=== PATIENT | female | born 1960 | race African-American/Black ===

== ENCOUNTER 2017-10-25 07:28 | Day surgery (SDC) | payer OTHER ==
--- NOTE | 2017-10-21 11:05 | RAD REPORT ---
EXAM DESCRIPTION: RADOP - Outpt Chest Pa/Lat (2 Views) - 10/21/2017 10:59 am CLINICAL HISTORY: Abdominal pain COMPARISON: 10/14/2016 FINDINGS: The lungs are clear. The heart is normal in size. No displaced fractures. IMPRESSION: No acute or concerning finding suspected.
[2017-10-21 11:42] LABS: Absolute Lymphocytes (CBC) 2.1 K/uL (0.7-4.9); Absolute Monocytes 0.5 K/uL (0.1-1.3); Absolute Neutrophil 5.2 K/uL (1.8-8.0); Basophils % 0.7 % (0-1.3); Eosinophils % 2.5 % (0-4.4); Hematocrit 40.4 % (36.0-45.0); Lymphocytes % 25.7 % (15.3-44.8); MCH 29.9 pg (27.0-35.0); MCV 92.5 fL (80-100); MPV 9.3 fL (7.6-11.3); Monocytes % 6.1 % (3.3-12.3); RBC Red Blood Cell Count 4.37 M/uL (3.86-4.86)
[2017-10-21 12:10] LABS: Potassium 3.7 mEq/L (3.6-5.0)
--- NOTE | 2017-10-21 16:41 | EKG ---
Test Date: 2017-10-21 Test Time: 10:50:20 Associate Product Manager: JESSIKA MEASUREMENT RESULTS: Intervals: Rate: 67 SD: 184 QRSD: 90 QT: 412 QTc: 435 Hugo: P: 56 SD: 184 QRS: 5 T: 56 INTERPRETIVE STATEMENTS: Normal sinus rhythm Low voltage QRS Cannot rule out Anterior infarct, age undetermined Abnormal ECG Compared to ECG 10/14/2016 07:31:42 Low QRS voltage now present Myocardial infarct finding now present Sinus bradycardia no longer present Electronically Signed On 10-21-17 16:40:34 CDT by Jem Arndt
--- OUTSIDE RECORDS SUMMARY | 2017-10-25 08:02 | XMS REPORT ---
:1960 Author Organization eClinicalWorks Care Team Providers Name Role Phone White, Na Provider Role Unavailable Allergies, Adverse Reactions, Alerts Substance Reaction Event Type N.K.D.A. Info Not Available Non Drug Allergy Problems Problem Type Condition Code Onset Dates Condition Status Assessment Pure hypercholesterolemia E78.00 Active Assessment Depression F32.9 Active Assessment Umbilical hernia with obstruction K42.0 Active Problem Allergic rhinitis, seasonal J30.2 Active Problem Hyperlipidemia E78.5 Active Problem Pure hypercholesterolemia E78.00 Active Problem HTN (hypertension) I10 Active Assessment HTN (hypertension) I10 Active Problem Vitamin D deficiency E55.9 Active Problem Depression F32.9 Active Medications Medication Code Code Instructions Start End Status Dosage System Date Date Lisinopril [facility] NAMED [facility] 90321510377 20 MG Orally Sep 01, Active 1 tablet Once a day 2017 Flonase FORMER[facility] NAMED [facility] 59595083448 50 MCG/DOSE Active 1 spray in Nasally Once a each nostril day Simvastatin ND 29025490546 20 MG Orally Inactive 1 tablet in Once a day the evening Paxil FORMERLY NAMED [facility] 64409217002 20 MG Orally Active 1 tablet in Once a day the morning Dovonex FORMER[facility] NAMED [facility] [address]-13 0.005 % Active 1 application Externally to affected Twice a day area Diflucan FORMERLY NAMED [facility] 97281639933 150 MG Orally Active 1 tablet Amlodipine FORMERLY NAMED [facility] 99036644044 5 MG Orally Active 1 tablet Besylate Once a day Zestoretic ND 65230979143 20-25 MG Inactive 1 tablet Orally Once a day Pravachol ND 82106396342 40 MG Orally Sep 01, Active 1 tablet Once a day 2017 Vitamin D FORMERLY NAMED [facility] 54076967611 57706 UNIT Inactive 1 capsule (Ergocalcifero Orally l) Results No Known Results Summary Purpose eClinicalWorks Submission
[2017-10-25] MEDS ORDERED: CEFAZOLIN/SWI 1gm 1 GM/10 ML SYR ONE (08:43)
[2017-10-25] MEDS ORDERED: PROPOFOL 200 MG/20 ML VIAL IV ONE (08:50)
[2017-10-25] MEDS ORDERED: LIDOCAINE 2% MPF 5 ML VIAL ONE (08:51)
[2017-10-25] MEDS ORDERED: MIDAZOLAM HCL 2 MG/2 ML INJ ONE (08:51)
[2017-10-25] MEDS ORDERED: ONDANSETRON 4 MG/2 ML VIAL ONE (08:52)
[2017-10-25] MEDS ORDERED: ROCURONIUM 50 MG/5 ML VIAL IV ONE (08:52)
[2017-10-25] MEDS ORDERED: FENTANYL CITR 100 MCG/2 ML ONE (08:53)
[2017-10-25] MEDS ORDERED: Phenylephrine HCl 10 MG/ML 1 ML VIAL ONE (09:34)
[2017-10-25] MEDS ORDERED: DEXAMETHASONE 10 MG/ML VIAL ONE (09:37)
[2017-10-25] MEDS ORDERED: GLYCOPYRROLATE 0.2 MG/ML SYR ONE (09:59)
[2017-10-25] MEDS ORDERED: NEOSTIGMINE 1 MG/ML -5 ML SYRINGE ONE (09:59)
[2017-10-25] MEDS ORDERED: KETOROLAC 30 MG/ML INJ ONE (10:21)
[2017-10-25] MEDS ORDERED: MEPERIDINE HCL 25 MG/0.5 ML ONE (10:51)
--- NOTE | 2017-10-25 11:21 | P.BOP ---
Preoperative diagnosis: incarcerated tender umbilical hernia Postoperative diagnosis: same Primary procedure: Open repair of incarcerated tender umbilical hernia Gis Analyst: Antonette Ernandez) Estimated blood loss: <10cc Specimen: hernia sac and content Findings: incarcerated omentum in umbilical hernia Anesthesia: General Complications: None Transferred to: Recovery Room Condition: Good
[2017-10-25] MEDS ORDERED: HYDROCODONE/APAP 5/325 MG TAB ONE (11:59)
[2017-10-25 12:09] VITALS: BP 141/77; TEMP 97.5; O2SAT 96
--- NOTE | 2017-10-25 23:49 | DS ---
Date of Discharge: 10/25/2017 Diagnosis: Tender incarcerated umbilical hernia. Procedure: Open repair of tender incarcerated umbilical hernia. Disposition: Home. Activity: As tolerated. No heavy lifting. Followup: Follow up in my office in 1 week. Call for appointment at [phone]. Keep area dry for 48 hours, then may shower. Keep Steri-Strips intact. Medications: See order. BRANDON/DERRELL Voice ID: [id number] Report ID: [id number]
--- NOTE | 2017-10-25 23:55 | OP ---
Date of Procedure: 10/25/2017 Surgeon: Rafita Briseno MD Vulnerability Researcher: Anna Mckeon CRNA, FA. Preoperative Diagnosis: Incarcerated tender umbilical hernia. Postoperative Diagnosis: Incarcerated tender umbilical hernia. Procedure: Open repair of incarcerated tender umbilical hernia. Estimated Blood Loss: Less than 10 cc. Specimen: Hernia sac and content. Findings: Incarcerated umbilical hernia. Indications: This is the case of a female, who comes to us with above diagnosis. Fully explained th e benefits, alternatives, and risks of repair of umbilical hernia which include but not limited to in fection, bleeding, damage to adjacent structures, anesthesia complication, DC, even . She also understands this might not relieve any symptoms. She might need more than one surgical intervention. She understood, signed a consent. Description Of Procedure: The patient was brought to the operating room, placed in supine position. Anesthesia was done without complication. The abdominal area was prepped and draped in usual steri le fashion. A time-out was called. A periumbilical incision was made. Incision was carried down to deep subcutaneous tissue, and there is a deep the hernia. Hernia defect was identified, f rom the skin, hernia sac opened, noticed incarcerated omentum, carefully removed from the abdominal c avity after I fully inspected with good hemostasis. The hernia sac was removed. The fascial edges w ere cleaned up and then after that, we proceeded to close the fascia with multiple #1 Prolene in figu re-of-eight fashion. The area was irrigated. Subcu incision closed with 3-0 chromic and skin in sub cuticular fashion with 3-0 chromic and Steri-Strips on top. The patient tolerated the procedure well. The patient was sent to recovery in stable condition. BRANDON/DERRELL Voice ID: [id number] Report ID: [id number]
== END 2017-10-25 12:50 | disposition home or self-care (01) ==
LOC: OR 07:28
PROVIDERS: ATTEND Surgery
PROC: 0WQF0ZZ Repair Abdominal Wall, Open Approach (ICD-10-PCS; principal; 2017-10-25 09:15)
DX: K42.0 Umbilical hernia with obstruction, without gangrene (principal); I10 Essential (primary) hypertension; Z98.51 Tubal ligation status; Z82.49 Family history of ischemic heart disease and other diseases of the circulatory system
CPT/HCPCS: 36415; 71046; 80048; 85025; 88302; 88305; 93005; J0690; J1100; J2175; J2250; J2370; J2405; J2710; J3010

== ENCOUNTER 2018-10-03 08:32 | Emergency (ER) | payer OTHER ==
--- OUTSIDE RECORDS SUMMARY | 2018-10-03 08:34 | XMS REPORT ---
:1960 Author Organization eClinicalWorks Care Team Providers Name Role Phone White, Na Provider Role Unavailable Allergies, Adverse Reactions, Alerts Substance Reaction Event Type N.K.D.A. Info Not Available Non Drug Allergy Problems Problem Type Condition Code Onset Dates Condition Status Assessment Pure hypercholesterolemia E78.00 Active Assessment HTN (hypertension) I10 Active Assessment Depression F32.9 Active Problem Allergic rhinitis, seasonal J30.2 Active Problem Hyperlipidemia E78.5 Active Problem Pure hypercholesterolemia E78.00 Active Problem HTN (hypertension) I10 Active Problem Vitamin D deficiency E55.9 Active Problem Depression F32.9 Active Assessment Screening mammogram, encounter for Z12.31 Active Assessment Acute effusion of left ear H65.192 Active Assessment Seasonal allergic rhinitis, J30.2 Active unspecified trigger Assessment Congestion of paranasal sinus R09.81 Active Medications Medication Code Code Instructions Start End Status Dosage System Date Date Amlodipine [facility] 30801979044 5 MG Orally Active 1 tablet Besylate Once a day Paxil [facility] 13067078180 20 MG Orally Active 1 tablet in Once a day the morning Dovonex [facility] [address]-11 0.005 % Active 1 application Externally to affected Twice a day area Cetirizine ND 73853075934 10 MG Orally Apr 01, Active 1 tablet HCl Once a day 2017 Lisinopril ND 49263847334 20 MG Orally Active 1 tablet Once a day Flonase ND 80047180454 50 MCG/ACT Apr 01, Active 2 spray in Nasally Once a 2018 each nostril day Diflucan ND 50871894094 150 MG Orally Active 1 tablet Paxil [facility] 10383696382 20 MG Active TAKE 1 TABLET BY MOUTH EVERY DAY Flonase ND 83005466381 50 MCG/DOSE Active 1 spray in Nasally Once a each nostril day Pravachol ND 34350995171 40 MG Orally Active 1 tablet Once a day Results No Known Results Summary Purpose eClinicalWorks Submission
--- OUTSIDE RECORDS SUMMARY | 2018-10-03 08:34 | XMS REPORT ---
[...] [facility] 21392916543 20 MG Orally Sep 01, Active 1 tablet Once a day 2017 Flonase [facility]MER[facility] NAMED [facility] 45515381671 50 MCG/DOSE Active 1 spray in Nasally Once a each nostril day Simvastatin ND 91963655101 20 MG Orally Inactive 1 tablet in Once a day the evening Paxil FORMER[facility] NAMED [facility] 12740625512 20 MG Orally Active 1 tablet in Once a day the morning Dovonex [facility]MER[facility] NAMED [facility] [address]-46 0.005 % Active 1 application Externally to affected Twice a day area Diflucan [facility]MER[facility] NAMED [facility] 01513349654 150 MG Orally Active 1 tablet Amlodipine FORMER[facility] NAMED [facility] 56695487294 5 MG Orally Active 1 tablet Besylate Once a day Zestoretic ND 90674799409 20-25 MG Inactive 1 tablet Orally Once a day Pravachol ND 17110632625 40 MG Orally Sep 01, Active 1 tablet Once a day 2017 Vitamin D FORMER[facility] NAMED [facility] 77536742152 48297 UNIT Inactive 1 capsule (Ergocalcifero Orally l) Results No Known Results Summary Purpose eClinicalWorks Submission
--- OUTSIDE RECORDS SUMMARY | 2018-10-03 08:34 | XMS REPORT ---
:1960 Author Organization eClinicalWorks Care Team Providers Name Role Phone White, Na Provider Role Unavailable Allergies No Known Allergies Problems Problem Type Condition Code Onset Dates Condition Status Assessment Depression F32.9 Active Assessment HTN (hypertension) I10 Active Problem Allergic rhinitis, seasonal J30.2 Active Problem Hyperlipidemia E78.5 Active Problem Pure hypercholesterolemia E78.00 Active Problem HTN (hypertension) I10 Active Problem Vitamin D deficiency E55.9 Active Problem Depression F32.9 Active Medications Medication Code Code Instructions Start End Status Dosage System Date Date Paxil [facility] [place] 54168885155 20 MG Orally Active 1 tablet Once a day in the morning Amlodipine [facility] [place] 34257971517 5 MG Orally Once Active 1 tablet Besylate a day Results No Known Results Summary Purpose eClinicalWorks Submission
--- OUTSIDE RECORDS SUMMARY | 2018-10-03 08:35 | XMS REPORT ---
:1960 Author Organization eClinicalWorks Care Team Providers Name Role Phone White, Na Provider Role Unavailable Allergies, Adverse Reactions, Alerts Substance Reaction Event Type N.K.D.A. Info Not Available Non Drug Allergy Problems Problem Type Condition Code Onset Dates Condition Status Assessment Depression F32.9 Active Assessment HTN (hypertension) I10 Active Assessment Pure hypercholesterolemia E78.00 Active Assessment Muscle cramps R25.2 Active Assessment Seasonal allergic rhinitis, J30.2 Active unspecified trigger Assessment Microalbuminuria R80.9 Active Assessment Renal insufficiency N28.9 Active Problem Allergic rhinitis, seasonal J30.2 Active Problem Hyperlipidemia E78.5 Active Problem Pure hypercholesterolemia E78.00 Active Problem HTN (hypertension) I10 Active Problem Vitamin D deficiency E55.9 Active Problem Depression F32.9 Active Medications Medication Code Code Instructions Start End Status Dosage System Date Date Flonase [facility] 65246356138 50 MCG/DOSE Active 1 spray in Nasally Once a each day nostril Pravachol [facility] 91534489055 40 MG Orally Inactive 1 tablet Once a day Paxil [facility] 15836203941 20 MG Orally Active 1 tablet Once a day in the morning Flonase [facility] 84024922599 50 MCG/ACT Active 2 spray in Nasally Once a each day nostril Crestor ND 66758777895 10 MG Aug 15, Active take 1 2019 tablet by mouth at bedtime Amlodipine [facility] 50087808373 5 MG Orally Active 1 tablet Besylate Once a day Lisinopril [facility] 23062561945 20 MG Orally Active 1 tablet Once a day Amlodipine ND 87220644056 10 MG Orally Active 1 tablet Besylate Once a day Cetirizine HCl ND 66373251341 10 MG Orally Active 1 tablet Once a day Paxil [facility] 94120660897 20 MG Active TAKE 1 TABLET BY MOUTH EVERY DAY Results No Known Results Summary Purpose eClinicalWorks Submission
--- OUTSIDE RECORDS SUMMARY | 2018-10-03 08:35 | XMS REPORT ---
:1960 Author Organization eClinicalWorks Care Team Providers Name Role Phone White, Na Provider Role Unavailable Allergies No Known Allergies Problems Problem Type Condition Code Onset Dates Condition Status Assessment HTN (hypertension) I10 Active Problem Allergic rhinitis, seasonal J30.2 Active Problem Hyperlipidemia E78.5 Active Problem Pure hypercholesterolemia E78.00 Active Problem HTN (hypertension) I10 Active Problem Vitamin D deficiency E55.9 Active Problem Depression F32.9 Active Medications Medication Code Code Instructions Start End Date Status Dosage System Date Amlodipine [facility] 53050021949 10 MG Orally Active 1 tablet Besylate Once a day Results No Known Results Summary Purpose eClinicalWorks Submission
--- NOTE | 2018-10-03 09:31 | EDPHYS ---
Physician Documentation [facility] Name: Ricky Nash Age: 58 yrs Sex: Female : 1960 Arrival Date: 10/03/2018 Time: 08:34 Bed 12 Private MD: Angeline White ED Physician Dada Contreras HPI: 10/03 09:27 This 58 yrs old Black Female presents to ER via Ambulatory with complaints of Sore jr8 Throat, Ear Pain. 09:27 The patient presents with sore throat. The patient describes throat pain as scratchy. jr8 Onset: The symptoms/episode began/occurred gradually, 1 week(s) ago. Severity of symptoms: At their worst the symptoms were mild, in the emergency department the symptoms are unchanged. Modifying factors: The symptoms are alleviated by nothing, the symptoms are aggravated by nothing. Associated signs and symptoms: Pertinent positives: cough, earache, rhinorrhea, sneezing. The patient has not experienced similar symptoms in the past. The patient has not recently seen a physician. Historical: - Allergies: 08:59 NKA; sg - PMHx: 08:59 Depression; Hyperlipidemia; Hypertension; sg - PSHx: 08:59 Hysterectomy; sinus surgery; left pinky toe; Tubal ligation; trigger finger repaired; sg - Immunization history:: Adult Immunizations up to date. - Social history:: Smoking status: Patient/guardian denies using tobacco. - Ebola Screening: : Patient negative for fever greater than or equal to 101.5 degrees Fahrenheit, and additional compatible Ebola Virus Disease symptoms Patient denies exposure to infectious person Patient denies travel to an Ebola-affected area in the 21 days before illness onset No symptoms or risks identified at this time. ROS: 09:27 Eyes: Negative for injury, pain, redness, and discharge, Neck: Negative for injury, jr8 pain, and swelling, Cardiovascular: Negative for chest pain, palpitations, and edema, Abdomen/GI: Negative for abdominal pain, nausea, vomiting, diarrhea, and constipation, Back: Negative for injury and pain, MS/Extremity: Negative for injury and deformity, Skin: Negative for injury, rash, and discoloration, Neuro: Negative for headache, weakness, numbness, tingling, and seizure. 09:27 ENT: Positive for ear pain, rhinorrhea, sinus congestion, sore throat, Negative for drainage from ear(s). 09:27 Respiratory: Positive for cough, Negative for dyspnea on exertion, shortness of breath, sputum production, wheezing. Exam: 09:27 Eyes: Pupils equal round and reactive to light, extra-ocular motions intact. Lids and jr8 lashes normal. Conjunctiva and sclera are non-icteric and not injected. Cornea within normal limits. Periorbital areas with no swelling, redness, or edema. ENT: Nares patent. No nasal discharge, no septal abnormalities noted. Mild bogginess to turbinates. Tympanic membranes are normal and external auditory canals are clear. Serous fluid behind TM's present. Oropharynx with no redness, swelling, or masses, exudates, or evidence of obstruction, uvula midline. Mucous membranes moist. Neck: Trachea midline, no thyromegaly or masses palpated, and no cervical lymphadenopathy. Supple, full range of motion without nuchal rigidity, or vertebral point tenderness. No Meningismus. Cardiovascular: Regular rate and rhythm with a normal S1 and S2. No gallops, murmurs, or rubs. Normal PMI, no JVD. No pulse deficits. Respiratory: Lungs have equal breath sounds bilaterally, clear to auscultation and percussion. No rales, rhonchi or wheezes noted. No increased work of breathing, no retractions or nasal flaring. Abdomen/GI: Soft, non-tender, with normal bowel sounds. No distension or tympany. No guarding or rebound. No evidence of tenderness throughout. Back: No spinal tenderness. No costovertebral tenderness. Full range of motion. Skin: Warm, dry with normal turgor. Normal color with no rashes, no lesions, and no evidence of cellulitis. MS/ Extremity: Pulses equal, no cyanosis. Neurovascular intact. Full, normal range of motion. Neuro: Awake and alert, GCS 15, oriented to person, place, time, and situation. Cranial nerves II-XII grossly intact. Motor strength 5/5 in all extremities. Sensory grossly intact. Cerebellar exam normal. Normal gait. Vital Signs: 08:58 BP 144 / 84; Pulse 77; Resp 19; Temp 97.4; Pulse Ox 97% on R/A; Pain 6/10; sg MDM: 08:51 Patient medically screened. 8 09:27 Data reviewed: vital signs, nurses notes, and as a result, I will discharge patient. jr8 Data interpreted: Pulse oximetry: on room air is 97 %. Interpretation: normal. Counseling: I had a detailed discussion with the patient and/or guardian regarding: the historical points, exam findings, and any diagnostic results supporting the discharge/admit diagnosis, the need for outpatient follow up, a family practitioner, to return to the emergency department if symptoms worsen or persist or if there are any questions or concerns that arise at home. Administered Medications: No medications were administered Disposition: 13:48 Co-signature as Attending Physician, Dada Contreras MD I agree with the assessment and zoraida plan of care. Disposition: 10/03/18 09:30 Discharged to Home. Impression: Other seasonal allergic rhinitis, Acute nasopharyngitis [common cold]. - Condition is Stable. - Discharge Instructions: Nasal Allergies, Allergic Rhinitis, Viral Respiratory Infection. - Prescriptions for Claritin- D 12 Hour 5-120 mg Oral Tablet Sustained Release 12 hr - take 1 tablet by ORAL route every 12 hours for 7 days; 14 tablet. Prednisone 20 mg Oral Tablet - take 1 tablet by ORAL route once daily for 5 days; 5 tablet. Tessalon Perles 100 mg Oral Capsule - take 1 capsule by ORAL route every 8 hours As needed; 15 capsule. - Work release form, Medication Reconciliation Form, Thank You Letter, Antibiotic Education, Prescription Opioid Use form. - Follow up: Private Physician; When: 1 week; Reason: Recheck today's complaints, Continuance of care, Re-evaluation by your physician. - Problem is new. - Symptoms have improved. Signatures: Miguel Bernal RN RN sg Anderson, Corey, MD MD cha Williams, Irene, RN RN iw Roszak, Josh, PA PA jr8 Corrections: (The following items were deleted from the chart) 09:30 09:30 10/03/2018 09:30 Discharged to Home. Impression: Other seasonal allergic jr8 rhinitis. Condition is Stable. Forms are Medication Reconciliation Form, Thank You Letter, Antibiotic Education, Prescription Opioid Use. Follow up: Private Physician; When: 1 week; Reason: Recheck today's complaints, Continuance of care, Re-evaluation by your physician. Problem is new. Symptoms have improved. jr8 09:39 09:30 10/03/2018 09:30 Discharged to Home. Impression: Other seasonal allergic iw rhinitis; Acute nasopharyngitis [common cold]. Condition is Stable. Forms are Medication Reconciliation Form, Thank You Letter, Antibiotic Education, Prescription Opioid Use. Follow up: Private Physician; When: 1 week; Reason: Recheck today's complaints, Continuance of care, Re-evaluation by your physician. Problem is new. Symptoms have improved. jr8
--- NOTE | 2018-10-03 09:31 | ER ---
Nurse's Notes [facility] Name: Ricky Nash Age: 58 yrs Sex: Female : 1960 Arrival Date: 10/03/2018 Time: 08:34 Bed 12 Private MD: Angeline White Diagnosis: Other seasonal allergic rhinitis;Acute nasopharyngitis [common cold] Presentation: 10/03 08:57 Presenting complaint: Patient states: Left ear pain for 2-3 days, with sore throat that sg started out as itching last week and has just gotten worse, pt reports sinus congestion and drainage as well, denies N/V/D/Fever that she knows of at this time. Transition of care: patient was not received from another setting of care. Onset of symptoms was October 03, 2018. Risk Assessment: Do you want to hurt yourself or someone else? Patient reports no desire to harm self or others. Initial Sepsis Screen: Does the patient meet any 2 criteria? No. Patient's initial sepsis screen is negative. Does the patient have a suspected source of infection? No. Patient's initial sepsis screen is negative. Care prior to arrival: None. 08:57 Acuity: MANOJ 4 sg 08:57 Method Of Arrival: Ambulatory sg Historical: - Allergies: 08:59 NKA; sg - PMHx: 08:59 Depression; Hyperlipidemia; Hypertension; sg - PSHx: 08:59 Hysterectomy; sinus surgery; left pinky toe; Tubal ligation; trigger finger repaired; sg - Immunization history:: Adult Immunizations up to date. - Social history:: Smoking status: Patient/guardian denies using tobacco. - Ebola Screening: : Patient negative for fever greater than or equal to 101.5 degrees Fahrenheit, and additional compatible Ebola Virus Disease symptoms Patient denies exposure to infectious person Patient denies travel to an Ebola-affected area in the 21 days before illness onset No symptoms or risks identified at this time. Screenin:38 Abuse screen: Denies threats or abuse. Denies injuries from another. Nutritional iw screening: No deficits noted. Tuberculosis screening: No symptoms or risk factors identified. Fall Risk None identified. Assessment: 09:37 General: Appears in no apparent distress. Behavior is calm, cooperative. Pain: iw Complains of pain in head. Neuro: Level of Consciousness is awake, alert, obeys commands. Respiratory: Airway is patent Respiratory effort is even, unlabored, Breath sounds are clear bilaterally. GI: Abdomen is flat, non-distended. EENT: Throat is clear. Derm: Skin is intact, is healthy with good turgor. Musculoskeletal: Range of motion: intact in all extremities. Vital Signs: 08:58 BP 144 / 84; Pulse 77; Resp 19; Temp 97.4; Pulse Ox 97% on R/A; Pain 6/10; sg ED Course: 08:34 Patient arrived in ED. as 08:35 Angeline White MD is Private Physician. as 08:50 Yolis Clay, RN is Primary Nurse. iw 08:51 [facility] jr8 08:51 Dada Contreras MD is Attending Physician. jr8 08:58 Triage completed. sg 08:58 Arm band placed on. sg 09:38 No provider procedures requiring assistance completed. Patient did not have IV access iw during this emergency room visit. 09:39 Patient has correct armband on for positive identification. iw Administered Medications: No medications were administered Outcome: 09:30 Discharge ordered by . jr8 09:38 Discharged to home ambulatory. iw 09:38 Condition: good 09:38 Discharge instructions given to patient, Instructed on discharge instructions, follow up and referral plans. medication usage, Demonstrated understanding of instructions, follow-up care, medications, Prescriptions given X 3. 09:39 Patient left the ED. iw Signatures: Miguel Bernal, RN CIERRA sg Mariana Briseno as Yolis Clay, [facility] [place] iw Eleno Naidu PA PA jr8
[2018-10-03 09:43] VITALS: BP 144/84; TEMP 97.4; O2SAT 97
== END 2018-10-03 09:39 | disposition home or self-care (01) ==
LOC: ER 08:32
DX: J00 Acute nasopharyngitis [common cold] (principal); J30.2 Other seasonal allergic rhinitis; I10 Essential (primary) hypertension
CPT/HCPCS: 99282

== ENCOUNTER 2018-12-24 06:11 | Emergency (ER) | payer OTHER ==
--- OUTSIDE RECORDS SUMMARY | 2018-12-24 06:13 | XMS REPORT ---
[...] [facility] 94871068311 20 MG Orally Sep 01, Active 1 tablet Once a day 2017 Flonase FORMERLY NAMED [facility] 46468568960 50 MCG/DOSE Active 1 spray in Nasally Once a each nostril day Simvastatin ND 17758790791 20 MG Orally Inactive 1 tablet in Once a day the evening Paxil FORMERLY NAMED [facility] 08966113488 20 MG Orally Active 1 tablet in Once a day the morning Dovonex FORMERLY NAMED [facility] [address]-45 0.005 % Active 1 application Externally to affected Twice a day area Diflucan FORMERLY NAMED [facility] 77400622533 150 MG Orally Active 1 tablet Amlodipine FORMERLY NAMED [facility] 61391744674 5 MG Orally Active 1 tablet Besylate Once a day Zestoretic ND 65174200189 20-25 MG Inactive 1 tablet Orally Once a day Pravachol ND 52411144940 40 MG Orally Sep 01, Active 1 tablet Once a day 2017 Vitamin D FORMERLY NAMED [facility] 90790388003 29570 UNIT Inactive 1 capsule (Ergocalcifero Orally l) Results No Known Results Summary Purpose eClinicalWorks Submission
--- OUTSIDE RECORDS SUMMARY | 2018-12-24 06:13 | XMS REPORT ---
[...] End Date Status Dosage System Date Amlodipine [facility] 46305233671 10 MG Orally Active 1 tablet Besylate Once a day Results No Known Results Summary Purpose eClinicalWorks Submission
--- OUTSIDE RECORDS SUMMARY | 2018-12-24 06:13 | XMS REPORT ---
[...] End Status Dosage System Date Date Flonase [facility] 38002420672 50 MCG/DOSE Active 1 spray in Nasally Once a each day nostril Pravachol [facility] 36985943338 40 MG Orally Inactive 1 tablet Once a day Paxil [facility] 71905839157 20 MG Orally Active 1 tablet Once a day in the morning Flonase [facility] 20574908758 50 MCG/ACT Active 2 spray in Nasally Once a each day nostril Crestor ND 52664691827 10 MG Aug 15, Active take 1 2019 tablet by mouth at bedtime Amlodipine [facility] 42253021223 5 MG Orally Active 1 tablet Besylate Once a day Lisinopril [facility] 94451283714 20 MG Orally Active 1 tablet Once a day Amlodipine ND 33247939865 10 MG Orally Active 1 tablet Besylate Once a day Cetirizine HCl ND 92042432299 10 MG Orally Active 1 tablet Once a day Paxil [facility] 11806416784 20 MG Active TAKE 1 TABLET BY MOUTH EVERY DAY Results No Known Results Summary Purpose eClinicalWorks Submission
--- OUTSIDE RECORDS SUMMARY | 2018-12-24 06:13 | XMS REPORT ---
[...] End Status Dosage System Date Date Amlodipine [facility] 48375677393 5 MG Orally Active 1 tablet Besylate Once a day Paxil [facility] 68603239938 20 MG Orally Active 1 tablet in Once a day the morning Dovonex [facility] [address]-55 0.005 % Active 1 application Externally to affected Twice a day area Cetirizine ND 89804323382 10 MG Orally Apr 01, Active 1 tablet HCl Once a day 2017 Lisinopril ND 09367257419 20 MG Orally Active 1 tablet Once a day Flonase ND 54196499255 50 MCG/ACT Apr 01, Active 2 spray in Nasally Once a 2018 each nostril day Diflucan ND 05539326259 150 MG Orally Active 1 tablet Paxil [facility] 21748808024 20 MG Active TAKE 1 TABLET BY MOUTH EVERY DAY Flonase ND 92187590000 50 MCG/DOSE Active 1 spray in Nasally Once a each nostril day Pravachol ND 29101719688 40 MG Orally Active 1 tablet Once a day Results No Known Results Summary Purpose eClinicalWorks Submission
--- OUTSIDE RECORDS SUMMARY | 2018-12-24 06:13 | XMS REPORT ---
[...] End Status Dosage System Date Date Paxil [facility] 76477771057 20 MG Orally Active 1 tablet Once a day in the morning Amlodipine [facility] 48677807223 5 MG Orally Once Active 1 tablet Besylate a day Results No Known Results Summary Purpose eClinicalWorks Submission
[2018-12-24] MEDS ORDERED: KETOROLAC 30 MG/ML INJ ONE (06:55)
--- NOTE | 2018-12-24 08:09 | EDPHYS ---
Physician Documentation [facility] Name: Ricky Nash Age: 58 yrs Sex: Female : 1960 Arrival Date: 12/24/2018 Time: 06:15 Bed 6 Private MD: ED Physician Federico Mackenzie HPI: 12/24 06:28 This 58 yrs old Black Female presents to ER via Ambulatory with complaints of Headache. kb 06:28 The patient complains of pain to the forehead. The patient describes the headache as kb intermittent. Onset: The symptoms/episode began/occurred 8 day(s) ago. Associated signs and symptoms: The patient has no apparent associated signs or symptoms. Severity of symptoms: At its worst the pain was moderate, in the emergency department the pain is unchanged. Headache History: Denies prior headaches. The symptoms are alleviated by nothing. the symptoms are aggravated by bending over. The patient has not experienced similar symptoms in the past. The patient has been recently seen by a physician: the patient's primary care provider, 5 day(s) ago. Pt reports she started having a headache 8 days ago (Wednesday). Went to Dr White on Wednesday and was given prescription for Augmentin and meclizine. Pt denies cough, congestion, sinus pressure, fever, chills, dizziness or any other symptoms. Only reports headache. States she took a tylenol last night for the pain. . Historical: - Allergies: 06:30 NKA; fc - Home Meds: 06:30 lisinopril 20 mg Oral tab 1 tab once daily [Active]; Paxil 20 mg Oral tab 1 tab once fc daily [Active]; amlodipine 10 mg tab 1 tab once daily [Active]; - PMHx: 06:30 Depression; Hyperlipidemia; Hypertension; fc - PSHx: 06:30 Hysterectomy; Tubal ligation; finger surg; toe surg; sinus surg; fc - Immunization history:: Last tetanus immunization: up to date. - Social history:: Smoking status: Patient/guardian denies using tobacco, Patient uses alcohol, occasionally. - Ebola Screening: : Patient negative for fever greater than or equal to 101.5 degrees Fahrenheit, and additional compatible Ebola Virus Disease symptoms Patient denies exposure to infectious person Patient denies travel to an Ebola-affected area in the 21 days before illness onset. ROS: 06:28 Constitutional: Negative for fever, chills, and weight loss, Eyes: Negative for injury, kb pain, redness, and discharge, ENT: Negative for injury, pain, and discharge, Neck: Negative for injury, pain, and swelling, Cardiovascular: Negative for chest pain, palpitations, and edema, Respiratory: Negative for shortness of breath, cough, wheezing, and pleuritic chest pain, Abdomen/GI: Negative for abdominal pain, nausea, vomiting, diarrhea, and constipation, Back: Negative for injury and pain, MS/Extremity: Negative for injury and deformity, Skin: Negative for injury, rash, and discoloration. 06:28 Neuro: Positive for headache, Negative for altered mental status, dizziness, gait disturbance, hearing loss, loss of consciousness, numbness, seizure activity, speech changes, syncope, near syncope, tingling, tinnitus, tremor, visual changes, weakness. Exam: 06:28 Constitutional: This is a well developed, well nourished patient who is awake, alert, kb and in no acute distress. Head/Face: Normocephalic, atraumatic. Eyes: Pupils equal round and reactive to light, extra-ocular motions intact. Lids and lashes normal. Conjunctiva and sclera are non-icteric and not injected. Cornea within normal limits. Periorbital areas with no swelling, redness, or edema. ENT: Nares patent. No nasal discharge, no septal abnormalities noted. Tympanic membranes are normal and external auditory canals are clear. Oropharynx with no redness, swelling, or masses, exudates, or evidence of obstruction, uvula midline. Mucous membranes moist. Neck: Trachea midline, no thyromegaly or masses palpated, and no cervical lymphadenopathy. Supple, full range of motion without nuchal rigidity, or vertebral point tenderness. No Meningismus. Chest/axilla: Normal chest wall appearance and motion. Nontender with no deformity. No lesions are appreciated. Cardiovascular: Regular rate and rhythm with a normal S1 and S2. No gallops, murmurs, or rubs. Normal PMI, no JVD. No pulse deficits. Respiratory: Lungs have equal breath sounds bilaterally, clear to auscultation and percussion. No rales, rhonchi or wheezes noted. No increased work of breathing, no retractions or nasal flaring. Abdomen/GI: Soft, non-tender, with normal bowel sounds. No distension or tympany. No guarding or rebound. No evidence of tenderness throughout. Skin: Warm, dry with normal turgor. Normal color with no rashes, no lesions, and no evidence of cellulitis. MS/ Extremity: Pulses equal, no cyanosis. Neurovascular intact. Full, normal range of motion. Neuro: Awake and alert, GCS 15, oriented to person, place, time, and situation. Cranial nerves II-XII grossly intact. Motor strength 5/5 in all extremities. Sensory grossly intact. Cerebellar exam normal. Normal gait. Vital Signs: 06:15 BP 138 / 93; Pulse 70; Resp 18; Temp 98.6(O); Pulse Ox 98% on R/A; Weight 111.58 kg fc (R); Height 5 ft. 8 in. (172.72 cm) (R); Pain 6/10; 07:45 BP 121 / 79; Pulse 68; Resp 16; Pulse Ox 96% on R/A; Pain 5/10; hb 06:15 Body Mass Index 37.40 (111.58 kg, 172.72 cm) [place] Coma Score: 06:28 Eye Response: spontaneous(4). Verbal Response: oriented(5). Motor Response: obeys kb commands(6). Total: 15. MDM: 06:25 Patient medically screened. kb 06:28 Data reviewed: vital signs, nurses notes. Data interpreted: Pulse oximetry: on room air kb is 100 %. Interpretation: normal. 06:53 ED course: Patient looking at phone when ambulating to room from lobby. Steady gait, no kb distress noted.. 08:08 Counseling: I had a detailed discussion with the patient and/or guardian regarding: the kb historical points, exam findings, and any diagnostic results supporting the discharge/admit diagnosis, radiology results, the need for outpatient follow up, a family practitioner, to return to the emergency department if symptoms worsen or persist or if there are any questions or concerns that arise at home. 08:08 ED course: Pt reports relief of pain after toradol injection. kb 12/24 06:26 Order name: CT Head Brain wo Cont kb Administered Medications: 06:47 Drug: TORadol 60 mg Route: IM; Site: right deltoid; lp1 07:35 Follow up: Response: No adverse reaction; Pain is decreased hb Disposition: 12/24/18 08:08 Discharged to Home. Impression: Headache. - Condition is Stable. - Discharge Instructions: General Headache Without Cause, [id number]. - Medication Reconciliation Form, Thank You Letter, Antibiotic Education, Prescription Opioid Use form. - Follow up: Emergency Department; When: As needed; Reason: Worsening of condition. Follow up: Private Physician; When: 2 - 3 days; Reason: Recheck today's complaints, Continuance of care, Re-evaluation by your physician. Addendum: 12/27/2018 16:41 Co-signature as Attending Physician, Federico Mackenzie MD I agree with the assessment and t w4 plan of care. Signatures: Dispatcher [employer] EDBrittni Murray, BALDOMERO-Wayne HORSER UP-Rashmi Jarvis, RN RN Devi Wright RN RN lp1 Pricilla Mora RN RN Federico Mackenzie MD MD tw4 Corrections: (The following items were deleted from the chart) 12/24 08:23 08:08 12/24/2018 08:08 Discharged to Home. Impression: Headache. Condition is Stable. hb Forms are Medication Reconciliation Form, Thank You Letter, Antibiotic Education, Prescription Opioid Use. Follow up: Emergency Department; When: As needed; Reason: Worsening of condition. Follow up: Private Physician; When: 2 - 3 days; Reason: Recheck today's complaints, Continuance of care, Re-evaluation by your physician. kb
--- NOTE | 2018-12-24 08:09 | ER ---
Nurse's Notes [facility] Name: Ricky Nash Age: 58 yrs Sex: Female : 1960 Arrival Date: 12/24/2018 Time: 06:15 Bed 6 Private MD: Diagnosis: Headache Presentation: 12/24 06:15 Presenting complaint: Patient states: that 8 days ago she started to have a headache fc and left ear pain. Went to see Dr White 5 days ago and was given Augmentin and Meclizine. Has had no improvement. Transition of care: patient was not received from another setting of care. Onset of symptoms was December 17, 2018. Risk Assessment: Do you want to hurt yourself or someone else? Patient reports no desire to harm self or others. Initial Sepsis Screen: Does the patient meet any 2 criteria? No. Patient's initial sepsis screen is negative. Does the patient have a suspected source of infection? No. Patient's initial sepsis screen is negative. Care prior to arrival: Medication(s) given: Tylenol, last at 0200. 06:15 Method Of Arrival: Ambulatory 06:15 Acuity: MANOJ 3 Triage Assessment: 06:15 Headache History: Denies prior headaches. 06:15 General: Appears uncomfortable, obese, Behavior is calm, cooperative, appropriate for age. Pain: Complains of pain in forehead, left ear and left mu-ism Pain currently is 6 out of 10 on a pain scale. Quality of pain is described as aching, pressure, throbbing, Pain began 8 days ago Is continuous, Also complains of sleeplessness. EENT: Reports pain in left ear. Neuro: Level of Consciousness is awake, alert, obeys commands, Oriented to person, place, time, situation, Appropriate for age [employer] Talk Show [employer] are equal bilaterally Moves all extremities. Full function Gait is steady, Speech is normal, Reports headache in left. Cardiovascular: No deficits noted. Respiratory: Reports. GI: No deficits noted. : No deficits noted. Derm: Skin is intact, Skin is dry, Skin is normal, Skin temperature is warm. Musculoskeletal: Circulation, motion, and sensation intact. Capillary refill < 3 seconds, Range of motion: intact in all extremities. Historical: - Allergies: 06:30 NKA; fc - Home Meds: 06:30 lisinopril 20 mg Oral tab 1 tab once daily [Active]; Paxil 20 mg Oral tab 1 tab once fc daily [Active]; amlodipine 10 mg tab 1 tab once daily [Active]; - PMHx: 06:30 Depression; Hyperlipidemia; Hypertension; fc - PSHx: 06:30 Hysterectomy; Tubal ligation; finger surg; toe surg; sinus surg; fc - Immunization history:: Last tetanus immunization: up to date. - Social history:: Smoking status: Patient/guardian denies using tobacco, Patient uses alcohol, occasionally. - Ebola Screening: : Patient negative for fever greater than or equal to 101.5 degrees Fahrenheit, and additional compatible Ebola Virus Disease symptoms Patient denies exposure to infectious person Patient denies travel to an Ebola-affected area in the 21 days before illness onset. Screenin:28 Abuse screen: Denies threats or abuse. Nutritional screening: No deficits noted. fc Tuberculosis screening: No symptoms or risk factors identified. Fall Risk None identified. Assessment: 06:48 General: Appears in no apparent distress. Behavior is appropriate for age. Pain: lp1 Complains of pain in head. Neuro: Level of Consciousness is awake, alert, obeys commands, Oriented to person, place, time, situation, Gait is steady, Speech is normal, Pupils are PERRLA, Intact Reports dizziness, headache photophobia x 1 week. Cardiovascular: Patient's skin is warm and dry. Cardiovascular:. Respiratory: No deficits noted. GI: No deficits noted. : No signs and/or symptoms were reported regarding the genitourinary system. EENT: No signs and/or symptoms were reported regarding the EENT system. Derm: Skin is intact, Skin is dry, Skin is normal. Musculoskeletal: No deficits noted. 07:45 Reassessment: Patient appears in no apparent distress at this time. Patient and/or hb family updated on plan of care and expected duration. Pain level reassessed. Patient is alert, oriented x 3, equal unlabored respirations, skin warm/dry/pink. Vital Signs: 06:15 BP 138 / 93; Pulse 70; Resp 18; Temp 98.6(O); Pulse Ox 98% on R/A; Weight 111.58 kg fc (R); Height 5 ft. 8 in. (172.72 cm) (R); Pain 6/10; 07:45 BP 121 / 79; Pulse 68; Resp 16; Pulse Ox 96% on R/A; Pain 5/10; hb 06:15 Body Mass Index 37.40 (111.58 kg, 172.72 cm) fc [place] Coma Score: 06:28 Eye Response: spontaneous(4). Verbal Response: oriented(5). Motor Response: obeys kb commands(6). Total: 15. ED Course: 06:15 Patient arrived in ED. ag3 06:15 Arm band placed on Patient placed in an exam room, on a stretcher. fc 06:25 Brittni Bucio FNP-C [facility]. kb 06:25 Federico Mackenzie MD is Attending Physician. kb 06:28 Triage completed. fc 06:28 Patient has correct armband on for positive identification. Bed in low position. Call fc light in reach. Pulse ox on. NIBP on. 06:42 Devi Wright, RN is Primary Nurse. lp1 06:48 CT Head Brain wo Cont In Process Unspecified. EDMS 07:51 Primary Nurse role handed off by Devi Wright RN 07:51 Pricilla Mora, RN is Primary Nurse. hb 08:21 No provider procedures requiring assistance completed. Patient did not have IV access hb during this emergency room visit. Administered Medications: 06:47 Drug: TORadol 60 mg Route: IM; Site: right deltoid; lp1 07:35 Follow up: Response: No adverse reaction; Pain is decreased hb Outcome: 08:08 Discharge ordered by MD. kb 08:22 Discharged to home ambulatory. hb 08:22 Condition: stable 08:22 Discharge instructions given to patient, Instructed on discharge instructions, follow up and referral plans. medication usage, Demonstrated understanding of instructions, follow-up care, medications. 08:23 Patient left the ED. hb Signatures: Dispatcher [employer] EDLA Brittni Bucio FNP-C FNP-Ckb Chretien, Felicia, RN RN Devi Wright, CIERRA RN [facility] Pricilla Mora RN RN Love Coley ag3
[2018-12-24 08:33] VITALS: TEMP 98.6
[2018-12-24 08:36] VITALS: BP 121/79; O2SAT 96
--- NOTE | 2018-12-26 11:07 | RAD REPORT ---
EXAM DESCRIPTION: CT - Head Brain Wo Cont - 12/24/2018 7:46 am CLINICAL HISTORY: HEADACHE COMPARISON None. TECHNIQUE: CT HEAD WITHOUT IV CONTRAST on 12/24/2018 6:26 AM CDT This exam was performed according to our departmental dose-optimization program, which includes autom ated exposure control, adjustment of the mA and/or kV according to patient size and/or use of iterati ve reconstruction technique. FINDINGS: There is no acute hemorrhage, mass effect or midline shift. Flores-white differentiation is preserved. There is no hydrocephalus. There is no significant volume loss for age. The calvarium is intact. Orbits and globes are unremarkable. The paranasal sinuses are clear. Mastoid air cells are clear. IMPRESSION: No acute intracranial findings. Electronically signed by: Trevor Boggs MD 12/24/2018 7:01 AM CDT Due to temporary technical issues with the PACS/Fluency reporting system, reports are being signed by the in house radiologist as a courtesy to ensure prompt reporting. The interpreting radiologist is f ully responsible for the content of the report.
== END 2018-12-24 08:23 | disposition home or self-care (01) ==
LOC: ER 06:11
DX: R51 Headache (principal); I10 Essential (primary) hypertension; E78.5 Hyperlipidemia, unspecified; F32.9 Major depressive disorder, single episode, unspecified
CPT/HCPCS: 70450; 96372; 99283

== ENCOUNTER 2020-05-09 15:18 | Emergency (ER) | payer OTHER ==
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
[2020-05-09 16:15] VITALS: BP 146/94; TEMP 97.1; O2SAT 97
--- OUTSIDE RECORDS SUMMARY | 2020-05-09 17:02 | XMS REPORT | Continuity of Care Document ---
:1960 Author Organization [facility] t Address [address] [place] [address] Care Team Providers Name Role Phone Unavailable Unavailable Unavailable Problems Condition Condition Condition Status Onset Resolution Last Treating Co mments Source Name Details Category Date Date Treatment Clinician Date Pure Pure Problem Active [facility] hyperchole hyperchole Micheline kes - sterolemia sterolemia Me moria l [facility] ent [facility] Depression Depression Problem Active C [facility] ent Clinics Allergic Allergic Problem Active [facility] rhinitis, [facility]initis, [facility] - seasonal seasonal Memori a l [facility] ent Clinics Hyperlipid Hyperlipid Problem Active C [facility] emia emia kes - Memoria [facility] Clinics HTN HTN Problem Active [facility] (hypertens (hypertens Micheline kes - ion) ion) [facility] Vitamin D Vitamin D Problem Active [facility] deficiency deficiency Micheline kes - [facility] Adult Adult Problem Active [facility] general general [facility] medical [facility] exam exam l [facility] History of History of Problem Active C [facility] colon colon [facility] - polyps polyps [facility] Allergies, Adverse Reactions, Alerts This patient has no known allergies or adverse reactions. Medications Ordered Filled Start Stop Current Ordering Indication Dosage Frequency Signature Comments Components Source Medication Medication Date Date Medication? Clinician (SIG) Name Name Paxil Paxil Yes Na White [address] [facility] - morning [facility] Procedures This patient has no known procedures. Encounters Start End Encounter Admission Attending Care Care Encounter Source Date/Time Date/Time Type Type Clinicians Facility Department ID 2020-04-03 2020-04-03 [facility] [id number] [facility] 10:35:00 10:35:00 [employer] [facility] Medicine l Medicine Outpati ent Clinics 2020-03-04 2020-03-04 [facility] [id number] [address] 14:40:00 14:40:00 [place] [employer] [facility] - [facility] Medicine l Medicine Outpati ent Clinics 2019-12-26 2019-12-26 [facility] [id number] 10:20:00 10:20:00 [place] [employer] s - Drive [facility] l Medicine Outpati ent Clinics 2019-11-27 2019-11-27 [facility] [id number] [address] 08:40:00 08:40:00 [place] [employer] s - Drive [facility] Medicine l Medicine Outpati ent Clinics 2019-08-28 2019-08-28 [facility] [id number] 14:20:00 14:20:00 [place] [employer] s - Drive [facility] Medicine l Medicine Outpati ent Clinics 2019-08-15 2019-08-15 [facility] [id number] 13:20:00 13:20:00 [place] [employer] - Drive [facility] Medicine l Medicine Outpati ent Clinics 2019-04-12 2019-04-12 [facility] [id number] 09:00:00 09:00:00 [place] [employer] s - Drive [facility] Medicine l Medicine Outpati ent Clinics 2019-03-21 2019-03-21 [facility] [id number] 16:23:00 16:23:00 [place] [employer] - Drive [facility] Medicine l Medicine Outpati ent Clinics 2019-01-03 2019-01-03 [facility] [id number] 10:00:00 10:00:00 [place] [employer] [employer] - [address] [facility] Medicine l Medicine Outpati ent Clinics 2018-12-19 2018-12-19 [facility] [id number] 10:00:00 10:00:00 [place] [employer] [employer] - [address] [facility] Medicine l Medicine Outpati ent Clinics 2018-09-12 2018-09-12 [facility] [id number] 16:54:00 16:54:00 [place] [employer] - Drive [facility] Medicine Outpati ent Clinics 2018-08-15 2018-08-15 [facility] [id number] 15:45:00 15:45:00 t [employer] [facility] Medicine Outpati ent Clinics 2018-04-19 2018-04-19 [facility] [id number] [facility] 16[facility]20:00 16:20:00 t [employer] [facility] Medicine Outpati ent Clinics 2018-04-01 2018-04-01 [facility] [id number] 08:30:00 08:30:00 t [employer] [facility] Medicine Outpati ent Clinics 2017-10-05 2017-10-05 [facility] [id number] 10:15:00 10:15:00 t [employer] [facility] Outpati ent Clinics Results This patient has no known results.
--- OUTSIDE RECORDS SUMMARY | 2020-05-09 17:02 | XMS REPORT ---
:1960 Author Organization [employer] Care Team Providers Name Role Phone White, Na Provider Role Unavailable Allergies, Adverse Reactions, Alerts Substance Reaction Event Type N.K.D.A. Info Not Available Non Drug Allergy Problems Problem Type Condition Code Onset Dates Condition Statu s Assessment HTN (hypertension) I10 Active Problem HTN (hypertension) I10 Active Problem Adult general medical exam Z00.00 A ctive Problem Pure hypercholesterolemia E78.00 Ac tive Problem History of colon polyps Z86.010 Acti ve Problem Vitamin D deficiency E55.9 Active Problem Depression F32.9 Active Problem Allergic rhinitis, seasonal J30.2 Active Problem Hyperlipidemia E78.5 Active Assessment Microalbuminuria R80.9 Active Assessment Shifting sleep-work schedule G47.26 Active Assessment Seasonal allergic rhinitis, J30.2 Active unspecified trigger Assessment Renal insufficiency N28.9 Active Assessment Prediabetes R73.03 Active Assessment Depression F32.9 Active Assessment Pure hypercholesterolemia E78.00 Ac tive Medications Medication Code Code Instructions Start End Status Dosage System Date Date Mirtazapine [facility] 54972582968 15 MG Orally Active 1 t ablet Once a day at bedtime Amlodipine ND 24239353298 10 MG Orally Active 1 ta blet Besylate Once a day Paxil [facility] 65171869979 20 MG Orally Active 1 table t Once a day in the morning Meclizine HCl ND 00223671765 25 MG Orally December 19, Active 1 tablet twice a day prn 2019 as neede d dizziness Flonase ND 79501263402 50 MCG/ACT Active 2 spray i n Nasally Once a each day nostril Paxil [facility] 69827070390 30 MG Orally Active 1 table t Once a day in the morning Crestor ND 76305976638 10 MG Active take 1 tablet by mouth at bedtime Metformin HCl ND 48459945140 500 MG Orally Active 1 tablet twice a day with a meal Cheratussin AC [facility] 60959230764 100-10 MG/5ML Active 5 ml Orally every 6 hrs Rosuvastatin [facility] 43663340910 10 MG Active TAKE 1 Calcium TABLET BY MOUTH AT BEDTIME Tamiflu [facility] 42053348457 75 MG Orally Active 1 capsu le Twice a day Cetirizine HCl [facility] 51753904913 10 MG Orally Active 1 tablet Once a day Lisinopril [facility] 05013542494 20 MG Orally Active 1 ta blet Once a day Results No Known Results Summary Purpose [employer]ClinicalWorks Submission
--- OUTSIDE RECORDS SUMMARY | 2020-05-09 17:02 | XMS REPORT ---
:1960 Author Organization [employer] Care Team Providers Name Role Phone White, Na Provider Role Unavailable Allergies No Known Allergies Problems Problem Type Condition Code Onset Dates Condition Statu s Assessment Depression F32.9 Active Problem HTN (hypertension) I10 Active Problem Adult general medical exam Z00.00 A ctive Problem Pure hypercholesterolemia E78.00 Ac tive Problem History of colon polyps Z86.010 Acti ve Problem Vitamin D deficiency E55.9 Active Problem Depression F32.9 Active Problem Allergic rhinitis, seasonal J30.2 Active Problem Hyperlipidemia E78.5 Active Medications Medication Code System Code Instructions Start End Date Status Dos age Date Paxil [facility] 27457975970 30 MG Orally Active 1 table t in Once a day the morning Results No Known Results Summary Purpose [employer]ClinicalWorks Submission
== END 2020-05-09 15:48 | disposition home or self-care (01) ==
LOC: ER 15:18
DX: M62.830 Muscle spasm of back (principal); V43.52XA Car driver injured in collision with other type car in traffic accident, initial encounter; I10 Essential (primary) hypertension; E78.5 Hyperlipidemia, unspecified; F32.9 Major depressive disorder, single episode, unspecified
CPT/HCPCS: 99281

== ENCOUNTER 2020-07-09 07:23 | Day surgery (SDC) | payer OTHER ==
[2020-07-04 15:17] LABS: Urine Appearance CLEAR; Urine Bilirubin NEGATIVE (NEG); Urine Blood 2+ (NEG); Urine Color YELLOW; Urine Glucose NEGATIVE (NEG); Urine Protein 1+ (NEG); Urine Specific Gravity 1.025 (1.005-1.030); Urine Urobilinogen 0.2 mg/dL (0.2-1.0)
[2020-07-04 15:22] LABS: Absolute Lymphocytes (CBC) 1.2 K/uL (0.7-4.9); Basophils % 0.6 % (0-1.3); Hematocrit 40.9 % (36.0-45.0); Lymphocytes % 8.5 % (15.3-44.8); MPV 10.1 fL (7.6-11.3); RBC Red Blood Cell Count 4.44 M/uL (3.86-4.86)
[2020-07-04 15:27] LABS: Protime INR 1.08
[2020-07-04 15:43] LABS: Urine Microscopic Reflex ORDER UMIC
[2020-07-04 16:15] LABS: Blood Morphology Comment NOT SEEN (NOT SEEN); Platelet Estimate ADEQ; White Blood Cell Scan OK (OK)
[2020-07-04 16:34] LABS: Urine Amorphous Sediment 1+ /HPF (NONE SEEN); Urine Bacteria 20-50 /HPF (<20); Urine Mucus 1+ /HPF (NONE SEEN)
--- OUTSIDE RECORDS SUMMARY | 2020-07-09 07:26 | XMS REPORT | Continuity of Care Document ---
:1960 Author Organization [facility] t Address [address] [place] [address] Care Team Providers Name Role Phone Unavailable Unavailable Unavailable Problems This patient has no known problems. Allergies, Adverse Reactions, Alerts This patient has no known allergies or adverse reactions. Medications Ordered Filled Start Stop Current Ordering Indication Dosage Frequency Signature Comments Components Source Medication Medication Date Date Medication? Clinician (SIG) Name Name Paxil Paxil Yes Na White [address] [facility] l Outpati ent Clinics Procedures This patient has no known procedures. Encounters Start End Encounter Admission Attending Care Care Encounter Source Date/Time Date/Time Type Type Clinicians Facility Department ID 2020-07-03 2020-07-03 Outpatient [facility] [id number] [facility] 2020-06-24 2020-06-24 Outpatient [facility] [id number] [facility] 2020-06-04 2020-06-04 [facility] [id number] [facility] 2020-04-03 2020-04-03 [facility] [id number] 10:35:00 10:35:00 [employer] [facility] Family Medicine Medicine Outpati ent Clinics 2020-03-04 2020-03-04 [facility] [id number] [facility] 14:40:00 14:40:00 t [employer] - [employer] [facility] Family Medicine l Medicine Outpati ent Clinics 2019-12-26 2019-12-26 [facility] [id number] 10:20:00 10:20:00 t [employer] s - Drive [facility] Medicine l Medicine Outpati ent Clinics 2019-11-27 2019-11-27 [facility] [id number] [facility] 08:40:00 08:40:00 t [employer] [facility] Medicine l Medicine Outpati ent Clinics 2019-08-28 2019-08-28 [facility] [id number] [facility] 14:20:00 14:20:00 [employer] s - [employer] [facility] Medicine l Medicine Outpati ent Clinics 2019-08-15 2019-08-15 [facility] [id number] [facility] 13:20:00 13:20:00 [employer] - [employer] [facility] Medicine l Medicine Outpati ent Clinics 2019-04-12 2019-04-12 [facility] [id number] [facility] 09:00:00 09:00:00 [employer] - [employer] [facility] Medicine l Medicine Outpati ent Clinics 2019-03-21 2019-03-21 [facility] [id number] [facility] 16:23:00 16:23:00 [employer] - [employer] [facility] Medicine l Medicine Outpati ent Clinics 2019-01-03 2019-01-03 [facility] [id number] [facility] 10:00:00 10:00:00 [employer] [facility] Medicine l Medicine Outpati ent Clinics 2018-12-19 2018-12-19 [facility] [id number] [facility] 10:00:00 10:00:00 [employer] s - Drive [facility] Medicine l Medicine Outpati ent Clinics 2018-09-12 2018-09-12 [facility] [id number] 16:54:00 16:54:00 t [employer] - [employer] [facility] Medicine l Medicine Outpati ent Clinics 2018-08-15 2018-08-15 [facility] [id number] [facility] 15:45:00 15:45:00 t [employer] [facility] Medicine Outpati ent Clinics 2018-04-19 2018-04-19 [facility] [id number] 16:20:00 16:20:00 t [employer] [facility] Medicine Outpati ent Clinics 2018-04-01 2018-04-01 [facility] [id number] [facility] 08:30:00 08:30:00 t [employer] [facility] Medicine Outpati ent Clinics 2017-10-05 2017-10-05 [facility] [id number] [facility] 10:15:00 10:15:00 t [employer] [facility] Results This patient has no known results.
--- OUTSIDE RECORDS SUMMARY | 2020-07-09 07:26 | XMS REPORT ---
:1960 Author Organization [facility] Address [address], [address] [place] [address] Care Team Providers Name Role Phone White Unavailable [phone] PROBLEMS Type Condition ICD9-CM [id number] Onset Condition SNOMED Code Notes Code Code Dates Status Problem HTN (hypertension) I10 Active 93470689 Problem Depression F32.9 Active 237484581 Problem Adult general medical Z00.00 Active 559506104 exam Problem History of colon polyps Z86.010 Active 93045064 2 Problem Vitamin D deficiency E55.9 Active 54453524 Problem Hyperlipidemia E78.5 Active 37116448 Problem Allergic rhinitis, J30.2 Active 919156292 seasonal Problem Pure E78.00 Active 697010978 hypercholesterolemia ALLERGIES No Known Allergies ENCOUNTERS from 1960 to 2020-07-08 Encounter Location Date Provider Diagnosis [facility] [address] 16 Jun, 2020 Na Christopher Acute recurrent Family Medicine [place], [place] maxillar y sinusitis [id number] J01.01 IMMUNIZATIONS Vaccine Route Administration Date Status Kenalog (Triamcinolone) IM Intramuscular Apr 12, 2019 Adminis tered Kenalog (Triamcinolone) IM Intramuscular December 19, 2018 Adminis tered Kenalog (Triamcinolone) IM Intramuscular Apr 01, 2018 Adminis tered SOCIAL HISTORY Tobacco Use: Social History Observation Description Date Details (start date - stop date) Never Smoker Sex Assigned At : Social History Observation Description Sex Assigned At Unknown Tobacco Use/Smoking Question Answer Notes Are you a never smoker REASON FOR REFERRAL No Information VITAL SIGNS No information MEDICATIONS Medication SIG (Take, Route, Notes Start Date End Date Status Frequency, Duration) Paroxetine HCl 20 MG TAKE 1 TABLET BY Active MOUTH EVERY DAY IN THE MORNING for 90 Tamiflu 75 MG 1 capsule Orally Not-T aking Twice a day for 5 day(s) Rosuvastatin Calcium TAKE 1 TABLET BY Active 10 MG MOUTH AT BEDTIME Amlodipine Besylate 10 1 tablet Orally Once Active MG a day for 90 days Meclizine HCl 25 MG 1 tablet as needed Dec, Active Orally twice a day prn dizziness for 30 day(s) Azithromycin 250 MG 2 tablets on the Jun, Jun, Active first day, then 1 tablet daily for 4 days Orally Once a day for 5 day(s) Lisinopril 20 MG 1 tablet Orally Once Active a day for 90 days Crestor 10 MG take 1 tablet by Activ e mouth at bedtime for 90 days Paxil 20 MG 1 tablet in the Active morning Orally Once a day for 30 Paxil 30 MG 1 tablet in the Active morning Orally Once a day for 90 days Lisinopril 20 MG TAKE 1 TABLET BY Ac tive MOUTH EVERY DAY for 90 Cheratussin AC 100-10 5 ml Orally every 6 Not-Taking MG/5ML hrs for 10 days Cetirizine HCl 10 MG 1 tablet Orally Once Active a day for 90 day(s) Mirtazapine 15 MG 1 tablet at bedtime Active Orally Once a day for 90 days PredniSONE 20 MG 1 tablet with food Jun,Jun, 020 Active or milk Orally Once a day for 5 days Flonase 50 MCG/ACT 2 spray in each A ctive nostril Nasally Once a day for 30 day(s) Metformin HCl 500 MG 1 tablet with a meal Active Orally twice a day for 90 days PROCEDURES No Information RESULTS No Results REASON FOR VISIT Sore throat , sinus congesion MEDICAL (GENERAL) HISTORY Type Description Date Medical History HTN (hypertension) Medical History Allergic rhinitis, seasonal Medical History Vitamin D deficiency Medical History Depression Medical History Hyperlipidemia Surgical History sinus Surgical History tubal ligation Surgical History left nose Surgical History umbilical hernia repair 10/2017 Goals Section No Information Health Concerns No Information MEDICAL EQUIPMENT No Information MENTAL STATUS No Information FUNCTIONAL STATUS No Information ASSESSMENTS Encounter Date Diagnosis Assessment Notes Treatment Notes Treatm ent Clinical Notes Jun, Acute recurrent Increase hydration. maxillary Advised on sinusitis signs/symptoms to (ICD-10 - monitor. OK to use J01.01) OTC Tylenol and/or NSAIDs for pain and fever, temporarily. It is important to rest and take your medication as recommended by the doctor. Nasal saline sprays three times a day to the nostrils may help with the nasal congestion. You may also take Mucinex OTC for chest congestion. If the symptoms persists or worsen after 24-48 hours especially if taking medication, then you are to call back for reevaluation or go to the ER. Jun, Other Total time spen t by provider idalia ing this virtual vi sit was 12 minutes. Also, time was spent counselin g and coordinatin g care including but not limited to discussion of t est results, diagnostic or treatment recommendations , prognosis, risk s and benefits of management options, instructions, education, compliance and or risk reduction. PLAN OF TREATMENT Medication Medication Name Sig Start Date Stop Date Azithromycin 250 MG 2 tablets on the first day, then 1 Jun, 2019Jun, tablet daily for 4 days Orally Once a day for 5 day(s) PredniSONE 20 MG 1 tablet with food or milk Orally Once Jun, 2019Jun, a day for 5 days Treatment Notes Assessment Notes Clinical Notes Acute recurrent maxillary Increase hydration. Advised on sinusitis signs/symptoms to monitor. OK to use OTC Tylenol and/or NSAIDs for pain and fever, temporarily. It is important to rest and take your medication as recommended by the doctor. Nasal saline sprays three times a day to the nostrils may help with the nasal congestion. You may also take Mucinex OTC for chest congestion. If the symptoms persists or worsen after 24-48 hours especially if taking medication, then you are to call back for reevaluation or go to the ER. Next Appt Details prn Reason: Provider Name:Angeline White, 2020-09-16 09:4 5:00 AM, [address], [address], [place], [address], Provider Name:Angeline White 2020-09-23 04:2 0:00 PM, [address], [address], [place], [address], Insurance Providers Payer Name Payer Address Payer Insured Patient Coverage Cover age End Phone Name Relationship to Start Date Dick e Insured [employer] [address] [phone] Sofi Nash self [address] [facility] [place] [id number]
--- OUTSIDE RECORDS SUMMARY | 2020-07-09 07:26 | XMS REPORT ---
:1960 Author Organization [facility] Address [address] [facility] [place] [address] Care Team Providers Name Role Phone White Unavailable [phone] PROBLEMS Type Condition ICD9-CM [id number] Onset Condition SNOMED Code Notes Code Code Dates Status Problem HTN (hypertension) I10 Active 35546285 Problem Depression F32.9 Active 001912451 Problem Adult general medical Z00.00 Active 201378319 exam Problem History of colon polyps Z86.010 Active 48465096 2 Problem Vitamin D deficiency E55.9 Active 44628953 Problem Hyperlipidemia E78.5 Active 02935835 Problem Allergic rhinitis, J30.2 Active 573985674 seasonal Problem Pure E78.00 Active 709184568 hypercholesterolemia ALLERGIES No Known Allergies ENCOUNTERS from 1960 to 2020-06-27 Encounter Location Date Provider Diagnosis [facility] [place] [address] [facility] Jun, Na White Pure hype rcholesterolemia [address] [place], E78.00 ; [place] ([place]) [place] [address] I10 ; Prediabe mo R73.03 ; Depression F32. 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 9 ; Seasonal allergic rhinit is, unspecified tri gger J30.2 and Microalbumi armida R80.9 IMMUNIZATIONS Vaccine Route Administration Date Status Kenalog [...] REASON FOR REFERRAL No Information VITAL SIGNS Height 68.00 in Jun, Weight 261.0 lbs Jun, Temperature 98.1 degrees Fahrenheit Jun, BMI 39.68 kg/m2 Jun, Oximetry 96 % Jun, Respiratory Rate 18 /min Jun, Blood pressure systolic 143 mm Hg Jun, Blood pressure diastolic 81 mm Hg Jun, MEDICATIONS Medication SIG (Take, Route, Notes Start Date End Date Status Frequency, Duration) Lisinopril 20 MG TAKE 1 TABLET BY MOUTH Active EVERY DAY for 90 Paxil 30 MG 1 tablet in the Active morning Orally Once a day for 90 days Crestor 10 MG take 1 tablet by mouth Active at bedtime for 90 days Cetirizine HCl 10 MG 1 tablet Orally Once a Active day for 90 day(s) Cheratussin AC 100-10 5 ml Orally every 6 Not-Taking MG/5ML hrs for 10 days Paxil 20 MG 1 tablet in the Active morning Orally Once a day for 30 Metformin HCl 500 MG 1 tablet with a meal Active Orally twice a day for 90 days Mirtazapine 15 MG 1 tablet at bedtime Active Orally Once a day for 90 days Tamiflu 75 MG 1 capsule Orally Twice Not-Taking a day for 5 day(s) Rosuvastatin Calcium 10 TAKE 1 TABLET BY MOUTH Active MG AT BEDTIME Amlodipine Besylate 10 1 tablet Orally Once a Active MG day for 90 days Meclizine HCl 25 MG 1 tablet as needed Dec, Active Orally twice a day prn dizziness for 30 day(s) Flonase 50 MCG/ACT 2 spray in each A ctive nostril Nasally Once a day for 30 day(s) Lisinopril 20 MG 1 tablet Orally Once a Active day for 90 days Paroxetine HCl 20 MG TAKE 1 TABLET BY MOUTH Active EVERY DAY IN THE MORNING for 90 PROCEDURES No Information RESULTS No Results REASON FOR VISIT Follow up, htn, hld, prediabetes, depression/ anxiety MEDICAL (GENERAL) HISTORY Type Description Date Medical [...] No Information ASSESSMENTS Encounter Date Diagnosis Assessment Treatment Notes Treatment Notes Clinical Notes Jun, Pure hypercholesterolemia low fat diet, (ICD-10 - E78.00) decrease fast food and fried foods. Increase fruit and vegetable intake. exercise as tolerated 30minutes per day at least 3 days a week. May take fish oil 1000mg twice daily to help increase good cholesterol (HDL). Jun, HTN (hypertension) Maintian a low (ICD-10 - I10) salt DASH diet, exercise, weight loss and decrease stress recommended. Keep BP log and will review next visit. If blood pressure consistently above 140/90 return to clinic for adjustment of meds. Try to quit smoking if you currently smoke. Decrease caffeine intake if possible. Jun, Prediabetes (ICD-10 - A1C 5.7 improved R73.03) from 5.8 low carb 1800 ADA diet. Avoid sodas, juices and remember portion control. Low fat diet exercise and weightloss. will monitor A1C every 6 months. Jun, Depression (ICD-10 - continue current F32.9) meds daily. Avoid caffeine. Make sure to exercise daily, take deep breaths, meditate, take frequent breaks. Take yourself away from the situation causing anxiety and stress by going for a 10-15 minute walk. Jun, Shifting sleep-work Sleep hygiene schedule (ICD-10 - recommended. do G47.26) not drink caffeine past noon. do not use mobile devices prior to bedtime. Try melatonin 5mg extended release over the counter to help naturally relax and rest. Counseled with sleep aides, be ready to sleep upon taking medication, do not operate machinery, drive, or plan to do anything other than sleep even if you still feel alert after taking medication as may risk of falls and accidents. Advised it is not recommended to take sleep aides longer than 3 months as we need to avoid dependence on them. -- start on mirtazapine trial to help with depression and sleep Jun, Bunion, right foot (ICD-10 - M21.611) Jun, Renal insufficiency will monitor (ICD-10 - N28.9) kidney function. - Avoid NSAIDs ( such as ibuprofen, motrin, aleive) - Hydrate your kidneys by drinking plenty of water. Jun, Dermatitis (ICD-10 - L30.9) Jun, Seasonal allergic Allergies- avoid rhinitis, unspecified triggers. Use trigger (ICD-10 - J30.2) cetirazine once daily in AM to help control watery itchy eyes and runny nose. Use Flonase nasal spray two sprays once a day to help decrease inflammation and decrease nasal drainage/post nasal drip. Use saline nasal mist or irrigation as directed. allergy testing form filled out -- patient given kenalog 40mg IM injection today to help decrease inflammation, congestion drainage. Jun, Microalbuminuria (ICD-10 on labs need to - R80.9) control blood pressure Jun, Other -- Medications reviewed and updated. -- Dietary and Lifestyle modifications discussed with patient regarding low fat low salt diet diet, exercise and weight management. -- Treatment options, risks and benefits, side effects reviewed in detail. Patient accepts risk. -- Advised on signs/symptoms to monitor and when to call clinic and/or visit the nearest ER. Patient verbalized understanding and agreed with plan. -- Greater than 25 minutes was spent with patient during this encounter, of which >50% of the time was spent counseling and coordinating care including but not limited to discussion of test results, diagnostic or treatment recommendations, prognosis, risks and benefits of management options PLAN OF TREATMENT Medication Medication Name Sig Start Date Stop Date Cetirizine HCl 10 MG 1 tablet Orally Once a day for 90 day(s) Flonase 50 MCG/ACT 2 spray in each nostril Nasally Once a day for 30 day(s) Lisinopril 20 MG 1 tablet Orally Once a day for 90 days Crestor 10 MG take 1 tablet by mouth at bedtime for 90 days Paxil 30 MG 1 tablet in the morning Orally Once a day for 90 days Amlodipine Besylate 10 MG 1 tablet Orally Once a day for 90 days Metformin HCl 500 MG 1 tablet with a meal Orally twice a day for 90 days Mirtazapine 15 MG 1 tablet at bedtime Orally Once a day for 90 days Treatment Notes Assessment Notes Clinical Notes Pure hypercholesterolemia low fat diet, decrease fast food and fried foods. Increase fruit and vegetable intake. exercise as tolerated 30minutes per day at least 3 days a week. May take fish oil 1000mg twice daily to help increase good cholesterol (HDL). HTN (hypertension) Maintian a low salt DASH diet, exercise, weight loss and decrease stress recommended. Keep BP log and will review next visit. If blood pressure consistently above 140/90 return to clinic for adjustment of meds. Try to quit smoking if you currently smoke. Decrease caffeine intake if possible. Prediabetes A1C 5.7 improved from 5.8 low carb 1800 ADA diet. Avoid sodas, juices and remember portion control. Low fat diet exercise and weightloss. will monitor A1C every 6 months. Depression continue current meds daily. Avoid caffeine. Make sure to exercise daily, take deep breaths, meditate, take frequent breaks. Take yourself away from the situation causing anxiety and stress by going for a 10-15 minute walk. Shifting sleep-work schedule Sleep hygiene recommended. do not drink caffeine past noon. do not use mobile devices prior to bedtime. Try melatonin 5mg extended release over the counter to help naturally relax and rest. Counseled with sleep aides, be ready to sleep upon taking medication, do not operate machinery, drive, or plan to do anything other than sleep even if you still feel alert after taking medication as may risk of falls and accidents. Advised it is not recommended to take sleep aides longer than 3 months as we need to avoid dependence on them.-- start on mirtazapine trial to help with depression and sleep Renal insufficiency will monitor kidney function. - Avoid NSAIDs ( such as ibuprofen, motrin, aleive) - Hydrate your kidneys by drinking plenty of water. Seasonal allergic rhinitis, unspecified Allergies- avoid tri ggers. Use trigger cetirazine once daily in AM to help control watery itchy eyes and runny nose. Use Flonase nasal spray two sprays once a day to help decrease inflammation and decrease nasal drainage/post nasal drip. Use saline nasal mist or irrigation as directed.allergy testing form filled out-- patient given kenalog 40mg IM injection today to help decrease inflammation, congestion drainage. Microalbuminuria on labs need to control blood pressure Treatment Notes Test Name Order Date Lipid Panel w/ Chol/HDL Ratio 2020-06-27 Hemoglobin A1c 2020-06-27 Comp. Metabolic Panel (14) (CMP) 2020-06-27 CBC With Differential/Platelet 2020-06-27 Next Appt Details 3 Months labs 1 week prior Reason: Provider Name:Angeline White, 2020-09-16 09:4 5:00 AM, [address], [place], [address], Provider Name:Angeline White 2020-09-23 04:2 0:00 PM, [address], [place], [address], Insurance Providers Payer Name Payer Address Payer Insured Patient Coverage Cover age End Phone Name Relationship to Start Date Dick e Insured [employer] [address] [phone] Sofi Nash self [address] [facility] [place] [phone]
[2020-07-09] MEDS ORDERED: LIDOCAINE 2% MPF 5 ML VIAL ONE ×2 (07:45→08:56)
[2020-07-09] MEDS ORDERED: NS 0.9% VIAL 10 ML ONE ×3 (07:45→09:41)
[2020-07-09] MEDS ORDERED: FENTANYL CITR 100 MCG/2 ML ONE (07:46)
[2020-07-09] MEDS ORDERED: dexAMETHasone 10 MG/ML VIAL ONE (07:46)
[2020-07-09] MEDS ORDERED: MIDAZOLAM HCL 2 MG/2 ML INJ ONE (07:46)
[2020-07-09] MEDS ORDERED: Ringers Lactate 1,000 ML IV ONE (07:51)
[2020-07-09 08:00] VITALS: O2SAT 96
[2020-07-09] MEDS ORDERED: LIDOCAINE 1% 20 ML MDV ONE (08:26)
[2020-07-09] MEDS ORDERED: BUPIVACAINE 0.5% PF 10 ML VIAL ONE (08:26)
[2020-07-09] MEDS ORDERED: KETOROLAC 30 MG/ML INJ ONE (08:56)
[2020-07-09] MEDS ORDERED: CEFAZOLIN SODIUM 1 GM/VIAL ONE ×2 (08:56→09:41)
[2020-07-09] MEDS ORDERED: ONDANSETRON 4 MG/2 ML VIAL ONE (08:56)
[2020-07-09] MEDS ORDERED: propofoL 200 MG/20 ML VIAL IV ONE ×2 (08:56)
--- NOTE | 2020-07-09 09:41 | P.OP ---
Preoperative diagnosis: right hallux valgus Postoperative diagnosis: same Primary procedure: right offset v bunionectomy Secondary procedure: none Anesthesia: mac with 10cc 1:1 0.5% marcaine 1% lidocaine plain Estimated blood loss: <10cc Specimen: none Findings: as above Operative Technique: dictated Complications: None Implants: nery cannulated screw x 2 Transferred to: Recovery Room Condition: Good
--- NOTE | 2020-07-09 09:59 | RAD REPORT ---
EXAM DESCRIPTION: RAD - Foot Right 2 View - 07/09/2020 9:48 am CLINICAL HISTORY: Foot surgery FINDINGS: Three fluoroscopic spot images obtained. Fluoroscopy time 0.0 minutes Fluoroscopy was provided for surgery involving the foot. Procedure performed by Dr. Abel
--- NOTE | 2020-07-09 11:02 | OP ---
Surgeon: Satinder Abel Jr, DPM Preoperative Diagnosis: Right hallux valgus. Postoperative Diagnosis: Right hallux valgus. Procedure: Right offset V bunionectomy. Pathology: None. Anesthesia: TIVA with 10 cc of 1:1 of 0.5% Marcaine and 1% lidocaine plain. Hemostasis: Pneumatic ankle tourniquet at 250 mmHg. Estimated Blood Loss: Less than 10 cc. Materials: 2-0 and 3-0 Vicryl, 4-0 Prolene, and 2 [place] cannulated screws, one 2.0 x 16, one 2.0 x 18 mm, as well as a 2 x 4 allograft. Injectables: None. Complication: None. Procedure In Detail: Patient brought into [facility] operating room, placed on the OR table in supine position. Patient placed under sedation by the anesthesiologist and 10 cc of 1:1 of 0.5% Marcaine and 1% lidocaine plain were injected in local fashion in the right lower extremity. A well-padded pneumatic ankle tourniquet was applied to the right lower extremity. The patient was prepped and draped in usual aseptic manner. Next, a Fields block was performed at the base of first metatarsal utilizing 10 cc of 1:1 of 0.5% Marcaine and 1% lidocaine plain. Next, the right lower extremity was exsanguinated utilizing Esmarch bandage. Pneumatic ankle tourniquet insufflated to 250 mmHg. Attention was directed to the dorsal aspect of the right first MPJ and some bony prominences noted medially. At this time, a linear incision over this area was made approximately 4 cm. Skin incision was carried from superficial deep to cauterize, ligate, and retract all neurovascular structures as necessary at the level of the first MPJ capsule and inverted L capsulotomy was performed followed by sharp dissection. All capsular structures were released on dorsal, medial, plantar aspect of the head of the first metatarsal. Utilizing oscillating bone saw, the prominent medial eminence was resected and attention was directed laterally in the first intermetatarsal space, at which time a lateral capsular release, fibular sesamoid release, and adductor tendon release were performed. The leg was bent to 90 degrees. The 2 offset V cuts were made. The plantar cut was made first. Dorsal cut was made second and remained approximately 50 degrees in angulation to each other. The capital fragment was noted to be freely mobilized. The leg was extended and the capital fragment was transferred laterally as desired, verified under fluoroscopy to be in ideal position and fixated utilizing two 2.0 Smith screws, one 16 mm and one 18 mm in length. Utilizing oscillating bone saw, the prominent medial shelf was resected utilizing a power bur. All rough edges were smoothed. The wound was then irrigated with copious amounts of normal sterile saline with reapproximation of deep structures with 2-0 Vicryl, application of allograft over the capsule, and then closure of subcutaneous structures with 3-0 Vicryl and skin with 4-0 Prolene. Sterile dressing consisting of Xeroform, 4x4s, Kerlix, and an Xavi wrap was applied to the right lower extremity. Pneumatic ankle tourniquet was deflated with a prompt hyperemic response being noted to the right lower extremity. The patient tolerated the procedure and anesthesia well, was transferred from OR to recovery with vital signs stable and neurovascular status intact. MARK/DERRELL Voice ID: [id number] Report ID: [id number] MTDD
[2020-07-09 12:35] VITALS: BP 100/80; TEMP 97.5
== END 2020-07-09 10:50 | disposition home or self-care (01) ==
LOC: OR 07:23
PROVIDERS: ATTEND Podiatrist Foot & Ankle Surgery
PROC: 0QBQ0ZZ Excision of Right Toe Phalanx, Open Approach (ICD-10-PCS; principal; 2020-07-09 08:30)
DX: M20.11 Hallux valgus (acquired), right foot (principal); R06.83 Snoring; I10 Essential (primary) hypertension; Z20.828 Contact with and (suspected) exposure to other viral communicable diseases
CPT/HCPCS: 87088; 85025; 87086; 36415; 85610; 85730; 73620; 28292; U0002; J2704 ×2; J2250; J3010; J1100; J7120; J2405; J0690 ×2; 81003; 81015

== ENCOUNTER 2021-03-31 08:21 | Day surgery (SDC) | payer OTHER ==
[2021-03-31] MEDS ORDERED: Ringers Lactate 1,000 ML IV ONE ×3 (09:13→12:47)
[2021-03-31] MEDS ORDERED: CELECOXIB 100 MG CAPSULE ONE (09:50)
[2021-03-31] MEDS ORDERED: ACETAMINOPHEN 500 MG TAB ONE (09:51)
[2021-03-31] MEDS ORDERED: MIDAZOLAM HCL 2 MG/2 ML INJ ONE (10:31)
[2021-03-31] MEDS ORDERED: LIDOCAINE 2% MPF 5 ML VIAL ONE (10:31)
[2021-03-31] MEDS ORDERED: dexAMETHasone 10 MG/ML VIAL ONE (10:31)
[2021-03-31] MEDS ORDERED: propofoL 200 MG/20 ML VIAL IV ONE (10:31)
[2021-03-31] MEDS ORDERED: FENTANYL CITR 250 MCG/5 ML ONE (10:32)
[2021-03-31] MEDS ORDERED: ROCURONIUM 50 MG/5 ML VIAL IV ONE (10:32)
[2021-03-31] MEDS ORDERED: ONDANSETRON 4 MG/2 ML VIAL ONE (10:33)
[2021-03-31] MEDS ORDERED: LIDOCAINE 1% W/EPI 1:100,000 MDV 20 ML VIAL ONE (10:49)
[2021-03-31] MEDS ORDERED: EPINEPHRINE/PF 1 MG/ML AMP ONE (11:02)
[2021-03-31] MEDS ORDERED: BUPIVACAINE 0.5% PF 10 ML VIAL ONE (11:03)
[2021-03-31] MEDS ORDERED: BUPIVACAINE 0.25% PF 10 ML VIAL ONE (11:09)
[2021-03-31] MEDS ORDERED: GLYCOPYRROLATE 0.2 MG/ML SYR ONE ×2 (11:50→12:09)
[2021-03-31] MEDS ORDERED: NEOSTIGMINE 1 MG/ML -5 ML ONE (12:10)
[2021-03-31] MEDS ORDERED: NALOXONE 0.4 MG/ML VIAL ONE (12:37)
[2021-03-31 13:35] VITALS: BP 136/80; TEMP 97.1
[2021-03-31] MEDS ORDERED: ACETAMINOPHEN 160 MG/5 ML UCUP ONE (13:40)
[2021-03-31 13:51] VITALS: O2SAT 97
--- NOTE | 2021-03-31 14:25 | OP ---
Date of Procedure: 03/31/2021 Surgeon: MALIK SWIFT Preoperative Diagnoses: 1.Disorder of soft palate/uvula. 2.Uvular hypertrophy. Postoperative Diagnoses: 1.Disorder of soft palate/uvula. 2.Uvular hypertrophy. 3.Neoplasm, uncertain behavior uvula. Procedure: Uvulectomy. Anesthesia: General endotracheal anesthesia was administered. I also infiltrated 2.0 mL of 0.25% Ma rcaine with epinephrine 1:1000 epi wash. Estimated Blood Loss: Scant, less than 1 mL. Finding: Significantly elongated uvula with what appears to be a squamous papilloma or benign lesion located at the tip of the uvula. Complications: None. Disposition: Stable. The patient tolerated the procedure well. Indication For Procedure: The patient is a very pleasant 60-year-old female, who presented to my out patient clinic with constant globus sensation and a sensation of something in her throat. Examinatio n with a flexible laryngoscope revealed an extremely long uvula, which was dangling near the vallecul a and causing the globus sensation. These were indications to bring the patient to the operative sourav te for removal. She understood, all questions were answered. Risks versus benefits and complication s were explained in detail and a consent form was signed, which was placed in the chart. Description Of Procedure: The patient was transferred from the preoperative holding area to the oper ative suite by Department of Anesthesia, placed on the operating table supine and sedated and intubat ed in the normal fashion. The table was rotated 90 degrees and a shoulder roll was placed. The head and eyes were covered with sterile blue towels and a moist Ray-Uzair was placed over the upper lip for protection. A McIvor retractor was introduced into the right oral commissure, directed along the en dotracheal tube and suspended from the Huxford stand. I infiltrated approximately 2 mL of 0.25% Marcain e with epi wash at the site of uvulectomy excision. I then utilized the needle point electrocautery on the 20th setting of coagulation to make my initial incision around the anterior part of the uvula where I was going to remove the superior most portion of it. Once down to the uvula fat, I then swit ched over to the Metzenbaum and I was able to amputate the uvula at that point. There was little ble eding and no cautery was needed. I examined the tip of the uvula and it appears that there was a sma ll papillomatosis lesion located at the tip. Thus, this was submitted as a specimen to pathology for further evaluation. I reapproximated the mucosal edges utilizing 3-0 Vicryl dyed suture, which was tapered and the reapproximation was in a simple interrupted fashion. I then inserted a flexible orog astric tube and suctioned fluid contents from the esophagus and stomach, and all fluid contents were removed. The patient was then de-suspended from the Huxford stand and the McIvor retractor was removed, and the patient's jaw was checked and found to be in proper alignment. She was then transferred [facility] to Department of Anesthesia in stable condition where she was subsequently awakened, extubated, and transferred to postoperative care unit. She will be discharged home on analgesic medication and [facility] follow up in 1-2 weeks or sooner if needed. MELI/DERRELL Voice ID: [id number] Report ID: [id number]
== END 2021-03-31 13:55 | disposition home or self-care (01) ==
LOC: OR 08:21
PROVIDERS: ATTEND Otolaryngology Facial Plastic Surgery
PROC: 0CTNXZZ Resection of Uvula, External Approach (ICD-10-PCS; principal; 2021-03-31 10:15)
DX: D10.39 Benign neoplasm of other parts of mouth (principal); J34.2 Deviated nasal septum; J34.3 Hypertrophy of nasal turbinates; G47.00 Insomnia, unspecified; Z20.822 Contact with and (suspected) exposure to COVID-19
CPT/HCPCS: 88302; 42140; U0003; J2704; J0171; J2310; J2250; J3010; J1100; J2710; J7120 ×3; J2405; 88305

== ENCOUNTER 2023-06-07 06:04 | Emergency (ER) | payer BC ==
--- OUTSIDE RECORDS SUMMARY | 2023-06-07 06:08 | XMS REPORT | Continuity of Care Document ---
:1960 Author Organization [facility] t Address [address] [place] [address] Care Team Providers Name Role Phone Luis Foster Attending Clinician Unavailable Jose Foley Attending Clinician Unavailable Maria D Ray Attending Clinician Unavailable Angeline AGUILAR Attending Clinician Unavailable [email or web address] Attending Clinician Unavailable [email or web address] Admitting Clinician Unavailable Payers Payer Name Policy Type Policy Number Effective Date Expiration Date S davon [employer] 6 [id number] 2021 Common Spiri t Blue Shield of 00:00:00 - [facility] Blue Cross 6 [id number] Common Spiri t Blue Shield of - [facility] AETNA C1 [id number] Common Spirit [facility] Problems Condition Condition Condition Status Onset Resolution Last Treating Co mments Source Name Details Category Date Date Treatment Clinician Date Allergic Allergic Problem Commo n rhinitis rhinitis, Spiri t unspecifie - [facility]ifie Center d trigger Hypertensi HTN Problem Commo n on (hypertens Spirit ion) [facility] Depression Depression Problem C ommon Spirit [facility] Vitamin D Vitamin D Problem Com mon deficiency deficiency Sp jacy - [facility] [id number] Unspecifie Problem C ommon [id number] d injury Spirit of left - [facility]I lower leg, [facility] [id number] Severe Problem Common obesity Spirit (BMI >= - CHI 40) [facility] [id number] Morbid Problem Commo n [id number] (severe) Spirit obesity - [facility] due to [facility] [id number] Adult Problem Common general [facility] medical - [facility] exam [facility] Seasonal Seasonal Problem Commo n allergic allergic Spirit rhinitis rhinitis, - [facility] unspecifie [facility] Hyperlipid Hyperlipid Problem C ommon emia emia Spirit [facility] Pure Pure Problem Common hyperchole hyperchole Sp jacy sterolemia sterolemia [facility] History of History of Problem C ommon polyp of colon [facility] colon polyps [facility] 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 Social History Social Habit Start Date Stop Date Quantity Comments Source History of Tobacco Use Co mmon [facility] Sex Assigned At Com mon [facility] Smoking Status Start Date Stop Date Source Never Smoker [facility] Medications Ordered Filled Start Stop Current Ordering Indication Dosage Frequency Signature Comments Components Source Medication Medication Date Date Medication? Clinician (SIG) Name Name metFORMIN metFORMIN 2022-07 No 1{table QD metFORMIN HCl ER 750 HCl ER 750 0-26 t_with_ HCl ER 750 MG MG 00:00: evening MG 00 _meal} guaiFENesin guaiFENesin 2021-07 No QID guaiFENesi AC 100-10 AC 100-10 1-16 n AC MG/5ML MG/5ML 00:00: 100-10 00 MG/5ML guaiFENesin guaiFENesin 2021-07 No QID guaiFENesi AC 100-10 AC 100-10 1-16 n AC MG/5ML MG/5ML 00:00: 100-10 00 MG/5ML guaiFENesin guaiFENesin 2021-07 No QID guaiFENesi AC 100-10 AC 100-10 1-16 n AC MG/5ML MG/5ML 00:00: 100-10 00 MG/5ML guaiFENesin guaiFENesin 2021-07 No QID guaiFENesi AC 100-10 AC 100-10 1-16 n AC MG/5ML MG/5ML 00:00: 100-10 00 MG/5ML guaiFENesin guaiFENesin 2021-07 No QID guaiFENesi AC 100-10 AC 100-10 1-16 n AC MG/5ML MG/5ML 00:00: 100-10 00 MG/5ML Augmentin Augmentin 2021-07- No 1{table BID Augmentin 500-125 MG 500-125 MG 0-24 -31 t} 500-125 MG 00:00: 00:00 00 :00 Augmentin Augmentin 2021-07- No 1{table BID Augmentin 500-125 MG 500-125 MG 0-24 - t} 500-125 MG 00:00: 00:00 00 :00 Augmentin Augmentin 2021-07- No 1{table BID Augmentin 500-125 MG 500-125 MG 0-24 31 t} 500-125 MG 00:00: 00:00 00 :00 predniSONE predniSONE 2020-07- No QD predniSONE 10 MG 10 MG -16 11-23 10 MG 00:00: 00:00 00 :00 predniSONE predniSONE 2020-07- No QD predniSONE 10 MG 10 MG -16 11-23 10 MG 00:00: 00:00 00 :00 Azithromyci Azithromyci 2020-07- No QD Azithromyc n 250 MG n 250 MG -16 11-21 in 250 MG 00:00: 00:00 00 :00 Azithromyci Azithromyci 2020-07- No QD Azithromyc n 250 MG n 250 MG -16 11-21 in 250 MG 00:00: 00:00 00 :00 Medrol 4 MG Medrol 4 MG 2020- No QD Medrol 4 8-24 08-30 MG 00:00: 00:00 00 :00 Kenalog Kenalog No 40mg Common (Triamcinol (Triamcinol 9-25 S pirit one) one) 00:00: - [facility] 00 [facility] Kenalog Kenalog 2019-0 No 40mg Common (Triamcinol (Triamcinol 9-25 S pirit one) one) 00:00: - [facility]I 00 [facility] Kenalog Kenalog 2019-0 No 40mg Common (Triamcinol (Triamcinol 9-25 S pirit one) one) 00:00: - [facility] 00 [facility] Kenalog Kenalog 2019-0 No 40mg Common (Triamcinol (Triamcinol 9-25 S pirit one) one) 00:00: - [facility]I 00 [facility] Kenalog Kenalog 2019-0 No 40mg Common (Triamcinol (Triamcinol 9-25 S pirit one) one) 00:00: - [facility] 00 [facility] Kenalog Kenalog 2019-0 No 40mg Common (Triamcinol (Triamcinol 9-25 S pirit one) one) 00:00: - [facility] 00 [facility] Kenalog Kenalog 2019-0 No 40mg Common (Triamcinol (Triamcinol 9-25 S pirit one) one) 00:00: - [facility] 00 [facility] Kenalog Kenalog 2019-0 No 40mg Common (Triamcinol (Triamcinol 9-25 S pirit one) one) 00:00: - [facility] 00 [facility] Kenalog Kenalog 2019-0 No 40mg Common (Triamcinol (Triamcinol 9-25 S pirit one) one) 00:00: - [facility] 00 [facility] Kenalog Kenalog 2019-0 No 40mg Common (Triamcinol (Triamcinol 9-25 S pirit one) one) 00:00: - [facility] 00 [facility] Kenalog Kenalog 2019-0 No 40mg Common (Triamcinol (Triamcinol 9-25 S pirit one) one) 00:00: - [facility] 00 [facility] Kenalog Kenalog 2019-0 No 40mg Common (Triamcinol (Triamcinol 6-03 S pirit one) one) 00:00: - [facility]I 00 [facility] Kenalog Kenalog 2019-0 No 40mg Common (Triamcinol (Triamcinol 6-03 S pirit one) one) 00:00: - [facility]I 00 [facility] Kenalog Kenalog 2019-0 No 40mg Common (Triamcinol (Triamcinol 6-03 S pirit one) one) 00:00: - [facility] 00 [facility] Kenalog Kenalog 2019-0 No 40mg Common (Triamcinol (Triamcinol 6-03 S pirit one) one) 00:00: - [facility] 00 [facility] Kenalog Kenalog 2019-0 No 40mg Common (Triamcinol (Triamcinol 6-03 S pirit one) one) 00:00: - [facility]I 00 [facility] [place] Kenalog 2019-0 No 40mg Common (Triamcinol (Triamcinol 6-03 S pirit one) one) 00:00: - [facility]I 00 [facility] [place] Kenalog 2019-0 No 40mg Common (Triamcinol (Triamcinol 6-03 S pirit one) one) 00:00: - [facility]I 00 [facility] [place] Kenalog 2019-0 No 40mg Common (Triamcinol (Triamcinol 6-03 S pirit one) one) 00:00: - [facility]I 00 [facility] [place] Kenalog 2019-0 No 40mg Common (Triamcinol (Triamcinol 6-03 S pirit one) one) 00:00: - [facility]I 00 [facility] Kenalog Kenalog 2019-0 No 40mg Common (Triamcinol (Triamcinol 6-03 S pirit one) one) 00:00: - [facility]I 00 [facility] Kenalog Kenalog 2019-0 No 40mg Common (Triamcinol (Triamcinol 6-03 S pirit one) one) 00:00: - [facility] 00 [facility] Meclizine Meclizine 2019-0 No 1{table Meclizine HCl 25 MG HCl 25 MG 6-03 t_as_ne HCl 25 MG 00:00: eded} 00 Kenalog Kenalog 2018-0 No 40mg Common (Triamcinol (Triamcinol 9-14 S pirit one) one) 00:00: - [facility]I 00 [facility] Kenalog Kenalog 2018-0 No 40mg Common (Triamcinol (Triamcinol 9-14 S pirit one) one) 00:00: - [facility] 00 [facility] Kenalog Kenalog 2018-0 No 40mg Common (Triamcinol (Triamcinol 9-14 S pirit one) one) 00:00: - [facility] 00 [facility] Kenalog Kenalog 2018-0 No 40mg Common (Triamcinol (Triamcinol 9-14 S pirit one) one) 00:00: - [facility]I 00 [facility] Kenalog Kenalog 2018-0 No 40mg Common (Triamcinol (Triamcinol 9-14 S pirit one) one) 00:00: - [facility]I 00 [facility] Kenalog Kenalog 2018-0 No 40mg Common (Triamcinol (Triamcinol 9-14 S pirit one) one) 00:00: - [facility]I 00 [facility] Kenalog Kenalog 2018-0 No 40mg Common (Triamcinol (Triamcinol 9-14 S pirit one) one) 00:00: - [facility]I 00 [facility] Kenalog Kenalog 2018-0 No 40mg Common (Triamcinol (Triamcinol 9-14 S pirit one) one) 00:00: - [facility] 00 [facility] Kenalog Kenalog 2018-0 No 40mg Common (Triamcinol (Triamcinol 9-14 S pirit one) one) 00:00: - [facility]I 00 [facility] Kenalog Kenalog 2018-0 No 40mg Common (Triamcinol (Triamcinol 9-14 S pirit one) one) 00:00: - [facility]I 00 [facility] Kenalog Kenalog 2018-0 No 40mg Common (Triamcinol (Triamcinol 9-14 S pirit one) one) 00:00: - [facility]I 00 [facility] Paxil Paxil Yes Na Aguilar 1 tablet Common in the Spirit morning - [facility] Crestor 10 Crestor 10 No Crestor 10 MG MG MG Paxil 30 MG Paxil 30 MG No 1{table QD Paxil 30 t_in_th MG e_morni ng} Mirtazapine Mirtazapine No 1{table QD Mirtazapin 15 MG 15 MG t_at_be e 15 MG dtime} Flonase 50 Flonase 50 No 2{spray QD Flonase 50 MCG/ACT MCG/ACT _in_eac MCG/ACT h_nostr il} Lisinopril Lisinopril No 1{table QD Lisinopril 30 MG 30 MG t} 30 MG amLODIPine amLODIPine No 1{table amLODIPine Besylate 10 Besylate 10 t} Besylate MG MG 10 MG Flonase 50 Flonase 50 No 2{spray QD Flonase 50 MCG/ACT MCG/ACT _in_eac MCG/ACT h_nostr il} Tamiflu 75 Tamiflu 75 No 1{capsu BID Tamiflu 75 MG MG le} MG metFORMIN metFORMIN No 1{table BID metFORMIN HCl 500 MG HCl 500 MG t_with_ HCl 500 MG a_meal} Cetirizine Cetirizine No 1{table QD Cetirizine HCl 10 MG HCl 10 MG t} HCl 10 MG Rosuvastati Rosuvastati No Rosuvastat n Calcium n Calcium in Calcium 10 MG 10 MG 10 MG Cheratussin Cheratussin No 5{ml} QID Cheratussi AC 100-10 AC 100-10 n AC MG/5ML MG/5ML 100-10 MG/5ML Crestor 10 Crestor 10 No Crestor 10 MG MG MG Paxil 30 MG Paxil 30 MG No 1{table QD Paxil 30 t_in_th MG e_morni ng} Mirtazapine Mirtazapine No 1{table QD Mirtazapin 15 MG 15 MG t_at_be e 15 MG dtime} Flonase 50 Flonase 50 No 2{spray QD Flonase 50 MCG/ACT MCG/ACT _in_eac MCG/ACT h_nostr il} Lisinopril Lisinopril No 1{table QD Lisinopril 30 MG 30 MG t} 30 MG amLODIPine amLODIPine No 1{table amLODIPine Besylate 10 Besylate 10 t} Besylate MG MG 10 MG Flonase 50 Flonase 50 No 2{spray QD Flonase 50 MCG/ACT MCG/ACT _in_eac MCG/ACT h_nostr il} Tamiflu 75 Tamiflu 75 No 1{capsu BID Tamiflu 75 MG MG le} MG metFORMIN metFORMIN No 1{table BID metFORMIN HCl 500 MG HCl 500 MG t_with_ HCl 500 MG a_meal} Cetirizine Cetirizine No 1{table QD Cetirizine HCl 10 MG HCl 10 MG t} HCl 10 MG Rosuvastati Rosuvastati No Rosuvastat n Calcium n Calcium in Calcium 10 MG 10 MG 10 MG Cheratussin Cheratussin No 5{ml} QID Cheratussi AC 100-10 AC 100-10 n AC MG/5ML MG/5ML 100-10 MG/5ML Rosuvastati Rosuvastati No Rosuvastat n Calcium n Calcium in Calcium 10 MG 10 MG 10 MG amLODIPine amLODIPine No 1{table amLODIPine Besylate 10 Besylate 10 t} Besylate MG MG 10 MG Mirtazapine Mirtazapine No 1{table QD Mirtazapin 15 MG 15 MG t_at_be e 15 MG dtime} Tamiflu 75 Tamiflu 75 No 1{capsu BID Tamiflu 75 MG MG le} MG Crestor 10 Crestor 10 No Crestor 10 MG MG MG Cheratussin Cheratussin No 5{ml} QID Cheratussi AC 100-10 AC 100-10 n AC MG/5ML MG/5ML 100-10 MG/5ML Paxil 30 MG Paxil 30 MG No 1{table QD Paxil 30 t_in_th MG e_morni ng} Flonase 50 Flonase 50 No 2{spray QD Flonase 50 MCG/ACT MCG/ACT _in_eac MCG/ACT h_nostr il} metFORMIN metFORMIN No 1{table BID metFORMIN HCl 500 MG HCl 500 MG t_with_ HCl 500 MG a_meal} Cetirizine Cetirizine No 1{table QD Cetirizine HCl 10 MG HCl 10 MG t} HCl 10 MG Lisinopril Lisinopril No 1{table QD Lisinopril 30 MG 30 MG t} 30 MG Flonase 50 Flonase 50 No 2{spray QD Flonase 50 MCG/ACT MCG/ACT _in_eac MCG/ACT h_nostr il} metFORMIN metFORMIN No 1{table BID metFORMIN HCl 500 MG HCl 500 MG t_with_ HCl 500 MG a_meal} Crestor 10 Crestor 10 No Crestor 10 MG MG MG amLODIPine amLODIPine No 1{table amLODIPine Besylate 10 Besylate 10 t} Besylate MG MG 10 MG Lisinopril Lisinopril No 1{table QD Lisinopril 30 MG 30 MG t} 30 MG Tamiflu 75 Tamiflu 75 No 1{capsu BID Tamiflu 75 MG MG le} MG Flonase 50 Flonase 50 No 2{spray QD Flonase 50 MCG/ACT MCG/ACT _in_eac MCG/ACT h_nostr il} Flonase 50 Flonase 50 No 2{spray QD Flonase 50 MCG/ACT MCG/ACT _in_eac MCG/ACT h_nostr il} Rosuvastati Rosuvastati No Rosuvastat n Calcium n Calcium in Calcium 10 MG 10 MG 10 MG Paxil 30 MG Paxil 30 MG No 1{table QD Paxil 30 t_in_th MG e_morni ng} Mirtazapine Mirtazapine No 1{table QD Mirtazapin 15 MG 15 MG t_at_be e 15 MG dtime} Cheratussin Cheratussin No 5{ml} QID Cheratussi AC 100-10 AC 100-10 n AC MG/5ML MG/5ML 100-10 MG/5ML Cetirizine Cetirizine No 1{table QD Cetirizine HCl 10 MG HCl 10 MG t} HCl 10 MG amLODIPine amLODIPine No 1{table amLODIPine Besylate 10 Besylate 10 t} Besylate MG MG 10 MG Crestor 10 Crestor 10 No Crestor 10 MG MG MG metFORMIN metFORMIN No 1{table BID metFORMIN HCl 500 MG HCl 500 MG t_with_ HCl 500 MG a_meal} Tamiflu 75 Tamiflu 75 No 1{capsu BID Tamiflu 75 MG MG le} MG Rosuvastati Rosuvastati No Rosuvastat n Calcium n Calcium in Calcium 10 MG 10 MG 10 MG Flonase 50 Flonase 50 No 2{spray QD Flonase 50 MCG/ACT MCG/ACT _in_eac MCG/ACT h_nostr il} Cheratussin Cheratussin No 5{ml} QID Cheratussi AC 100-10 AC 100-10 n AC MG/5ML MG/5ML 100-10 MG/5ML Paxil 30 MG Paxil 30 MG No 1{table QD Paxil 30 t_in_th MG e_morni ng} Flonase 50 Flonase 50 No 2{spray QD Flonase 50 MCG/ACT MCG/ACT _in_eac MCG/ACT h_nostr il} Lisinopril Lisinopril No 1{table QD Lisinopril 30 MG 30 MG t} 30 MG Mirtazapine Mirtazapine No 1{table QD Mirtazapin 30 MG 30 MG t_at_be e 30 MG dtime} Cetirizine Cetirizine No 1{table QD Cetirizine HCl 10 MG HCl 10 MG t} HCl 10 MG Flonase 50 Flonase 50 No 2{spray QD Flonase 50 MCG/ACT MCG/ACT _in_eac MCG/ACT h_nostr il} amLODIPine amLODIPine No 1{table amLODIPine Besylate 10 Besylate 10 t} Besylate MG MG 10 MG Cheratussin Cheratussin No 5{ml} QID Cheratussi AC 100-10 AC 100-10 n AC MG/5ML MG/5ML 100-10 MG/5ML Crestor 10 Crestor 10 No Crestor 10 MG MG MG Paxil 30 MG Paxil 30 MG No 1{table QD Paxil 30 t_in_th MG e_morni ng} Cetirizine Cetirizine No 1{table QD Cetirizine HCl 10 MG HCl 10 MG t} HCl 10 MG Lisinopril Lisinopril No 1{table QD Lisinopril 30 MG 30 MG t} 30 MG Rosuvastati Rosuvastati No Rosuvastat n Calcium n Calcium in Calcium 10 MG 10 MG 10 MG Flonase 50 Flonase 50 No 2{spray QD Flonase 50 MCG/ACT MCG/ACT _in_eac MCG/ACT h_nostr il} metFORMIN metFORMIN No 1{table BID metFORMIN HCl 500 MG HCl 500 MG t_with_ HCl 500 MG a_meal} Mirtazapine Mirtazapine No 1{table QD Mirtazapin 30 MG 30 MG t_at_be e 30 MG dtime} Flonase 50 Flonase 50 No 2{spray QD Flonase 50 MCG/ACT MCG/ACT _in_eac MCG/ACT h_nostr il} amLODIPine amLODIPine No 1{table amLODIPine Besylate 10 Besylate 10 t} Besylate MG MG 10 MG Cheratussin Cheratussin No 5{ml} QID Cheratussi AC 100-10 AC 100-10 n AC MG/5ML MG/5ML 100-10 MG/5ML Crestor 10 Crestor 10 No Crestor 10 MG MG MG Paxil 30 MG Paxil 30 MG No 1{table QD Paxil 30 t_in_th MG e_morni ng} Cetirizine Cetirizine No 1{table QD Cetirizine HCl 10 MG HCl 10 MG t} HCl 10 MG Lisinopril Lisinopril No 1{table QD Lisinopril 30 MG 30 MG t} 30 MG Rosuvastati Rosuvastati No Rosuvastat n Calcium n Calcium in Calcium 10 MG 10 MG 10 MG Flonase 50 Flonase 50 No 2{spray QD Flonase 50 MCG/ACT MCG/ACT _in_eac MCG/ACT h_nostr il} metFORMIN metFORMIN No 1{table BID metFORMIN HCl 500 MG HCl 500 MG t_with_ HCl 500 MG a_meal} Mirtazapine Mirtazapine No 1{table QD Mirtazapin 30 MG 30 MG t_at_be e 30 MG dtime} Flonase 50 Flonase 50 No 2{spray QD Flonase 50 MCG/ACT MCG/ACT _in_eac MCG/ACT h_nostr il} amLODIPine amLODIPine No 1{table amLODIPine Besylate 10 Besylate 10 t} Besylate MG MG 10 MG Cheratussin Cheratussin No 5{ml} QID Cheratussi AC 100-10 AC 100-10 n AC MG/5ML MG/5ML 100-10 MG/5ML Crestor 10 Crestor 10 No Crestor 10 MG MG MG Paxil 30 MG Paxil 30 MG No 1{table QD Paxil 30 t_in_th MG e_morni ng} Cetirizine Cetirizine No 1{table QD Cetirizine HCl 10 MG HCl 10 MG t} HCl 10 MG Lisinopril Lisinopril No 1{table QD Lisinopril 30 MG 30 MG t} 30 MG Rosuvastati Rosuvastati No Rosuvastat n Calcium n Calcium in Calcium 10 MG 10 MG 10 MG Flonase 50 Flonase 50 No 2{spray QD Flonase 50 MCG/ACT MCG/ACT _in_eac MCG/ACT h_nostr il} metFORMIN metFORMIN No 1{table BID metFORMIN HCl 500 MG HCl 500 MG t_with_ HCl 500 MG a_meal} Mirtazapine Mirtazapine No 1{table QD Mirtazapin 30 MG 30 MG t_at_be e 30 MG dtime} Albuterol Albuterol No 2{puffs Albuterol Sulfate HFA Sulfate HFA } Sulfate 108 (90 108 (90 HFA 108 Base) Base) (90 Base) MCG/ACT MCG/ACT MCG/ACT Rosuvastati Rosuvastati No Rosuvastat n Calcium n Calcium in Calcium 10 MG 10 MG 10 MG Flonase 50 Flonase 50 No 2{spray QD Flonase 50 MCG/ACT MCG/ACT _in_eac MCG/ACT h_nostr il} Cheratussin Cheratussin No 5{ml} QID Cheratussi AC 100-10 AC 100-10 n AC MG/5ML MG/5ML 100-10 MG/5ML Paxil 30 MG Paxil 30 MG No 1{table QD Paxil 30 t_in_th MG e_morni ng} Mirtazapine Mirtazapine No 1{table QD Mirtazapin 30 MG 30 MG t_at_be e 30 MG dtime} Cetirizine Cetirizine No 1{table QD Cetirizine HCl 10 MG HCl 10 MG t} HCl 10 MG Lisinopril Lisinopril No 1{table QD Lisinopril 30 MG 30 MG t} 30 MG Paxlovid Paxlovid No 3{table BID Paxlovid (300/100) (300/100) ts} (300/100) 20 x 150 MG 20 x 150 MG 20 x 150 & 10 x & 10 x MG & 10 x 100MG 100MG 100MG amLODIPine amLODIPine No 1{table amLODIPine Besylate 10 Besylate 10 t} Besylate MG MG 10 MG Flonase 50 Flonase 50 No 2{spray QD Flonase 50 MCG/ACT MCG/ACT _in_eac MCG/ACT h_nostr il} metFORMIN metFORMIN No 1{table BID metFORMIN HCl 500 MG HCl 500 MG t_with_ HCl 500 MG a_meal} Crestor 10 Crestor 10 No Crestor 10 MG MG MG Albuterol Albuterol No 2{puffs Albuterol Sulfate HFA Sulfate HFA } Sulfate 108 (90 108 (90 HFA 108 Base) Base) (90 Base) MCG/ACT MCG/ACT MCG/ACT Rosuvastati Rosuvastati No Rosuvastat n Calcium n Calcium in Calcium 10 MG 10 MG 10 MG Flonase 50 Flonase 50 No 2{spray QD Flonase 50 MCG/ACT MCG/ACT _in_eac MCG/ACT h_nostr il} Cheratussin Cheratussin No 5{ml} QID Cheratussi AC 100-10 AC 100-10 n AC MG/5ML MG/5ML 100-10 MG/5ML Paxil 30 MG Paxil 30 MG No 1{table QD Paxil 30 t_in_th MG e_morni ng} Mirtazapine Mirtazapine No 1{table QD Mirtazapin 30 MG 30 MG t_at_be e 30 MG dtime} Cetirizine Cetirizine No 1{table QD Cetirizine HCl 10 MG HCl 10 MG t} HCl 10 MG Lisinopril Lisinopril No 1{table QD Lisinopril 30 MG 30 MG t} 30 MG Paxlovid Paxlovid No 3{table BID Paxlovid (300/100) (300/100) ts} (300/100) 20 x 150 MG 20 x 150 MG 20 x 150 & 10 x & 10 x MG & 10 x 100MG 100MG 100MG amLODIPine amLODIPine No 1{table amLODIPine Besylate 10 Besylate 10 t} Besylate MG MG 10 MG Flonase 50 Flonase 50 No 2{spray QD Flonase 50 MCG/ACT MCG/ACT _in_eac MCG/ACT h_nostr il} metFORMIN metFORMIN No 1{table BID metFORMIN HCl 500 MG HCl 500 MG t_with_ HCl 500 MG a_meal} Crestor 10 Crestor 10 No Crestor 10 MG MG MG Albuterol Albuterol No 2{puffs Albuterol Sulfate HFA Sulfate HFA } Sulfate 108 (90 108 (90 HFA 108 Base) Base) (90 Base) MCG/ACT MCG/ACT MCG/ACT Rosuvastati Rosuvastati No Rosuvastat n Calcium n Calcium in Calcium 10 MG 10 MG 10 MG Flonase 50 Flonase 50 No 2{spray QD Flonase 50 MCG/ACT MCG/ACT _in_eac MCG/ACT h_nostr il} Cheratussin Cheratussin No 5{ml} QID Cheratussi AC 100-10 AC 100-10 n AC MG/5ML MG/5ML 100-10 MG/5ML Paxil 30 MG Paxil 30 MG No 1{table QD Paxil 30 t_in_th MG e_morni ng} Mirtazapine Mirtazapine No 1{table QD Mirtazapin 30 MG 30 MG t_at_be e 30 MG dtime} Cetirizine Cetirizine No 1{table QD Cetirizine HCl 10 MG HCl 10 MG t} HCl 10 MG Lisinopril Lisinopril No 1{table QD Lisinopril 30 MG 30 MG t} 30 MG Paxlovid Paxlovid No 3{table BID Paxlovid (300/100) (300/100) ts} (300/100) 20 x 150 MG 20 x 150 MG 20 x 150 & 10 x & 10 x MG & 10 x 100MG 100MG 100MG amLODIPine amLODIPine No 1{table amLODIPine Besylate 10 Besylate 10 t} Besylate MG MG 10 MG Flonase 50 Flonase 50 No 2{spray QD Flonase 50 MCG/ACT MCG/ACT _in_eac MCG/ACT h_nostr il} metFORMIN metFORMIN No 1{table BID metFORMIN HCl 500 MG HCl 500 MG t_with_ HCl 500 MG a_meal} Crestor 10 Crestor 10 No Crestor 10 MG MG MG Albuterol Albuterol No 2{puffs Albuterol Sulfate HFA Sulfate HFA } Sulfate 108 (90 108 (90 HFA 108 Base) Base) (90 Base) MCG/ACT MCG/ACT MCG/ACT Rosuvastati Rosuvastati No Rosuvastat n Calcium n Calcium in Calcium 10 MG 10 MG 10 MG Flonase 50 Flonase 50 No 2{spray QD Flonase 50 MCG/ACT MCG/ACT _in_eac MCG/ACT h_nostr il} Cheratussin Cheratussin No 5{ml} QID Cheratussi AC 100-10 AC 100-10 n AC MG/5ML MG/5ML 100-10 MG/5ML Paxil 30 MG Paxil 30 MG No 1{table QD Paxil 30 t_in_th MG e_morni ng} Mirtazapine Mirtazapine No 1{table QD Mirtazapin 30 MG 30 MG t_at_be e 30 MG dtime} Cetirizine Cetirizine No 1{table QD Cetirizine HCl 10 MG HCl 10 MG t} HCl 10 MG Lisinopril Lisinopril No 1{table QD Lisinopril 30 MG 30 MG t} 30 MG Paxlovid Paxlovid No 3{table BID Paxlovid (300/100) (300/100) ts} (300/100) 20 x 150 MG 20 x 150 MG 20 x 150 & 10 x & 10 x MG & 10 x 100MG 100MG 100MG amLODIPine amLODIPine No 1{table amLODIPine Besylate 10 Besylate 10 t} Besylate MG MG 10 MG Flonase 50 Flonase 50 No 2{spray QD Flonase 50 MCG/ACT MCG/ACT _in_eac MCG/ACT h_nostr il} metFORMIN metFORMIN No 1{table BID metFORMIN HCl 500 MG HCl 500 MG t_with_ HCl 500 MG a_meal} Crestor 10 Crestor 10 No Crestor 10 MG MG MG amLODIPine amLODIPine No 1{table amLODIPine Besylate 10 Besylate 10 t} Besylate MG MG 10 MG metFORMIN metFORMIN No 1{table BID metFORMIN HCl 500 MG HCl 500 MG t_with_ HCl 500 MG a_meal} Rosuvastati Rosuvastati No Rosuvastat n Calcium n Calcium in Calcium 10 MG 10 MG 10 MG Flonase 50 Flonase 50 No 2{spray QD Flonase 50 MCG/ACT MCG/ACT _in_eac MCG/ACT h_nostr il} Crestor 10 Crestor 10 No Crestor 10 MG MG MG Lisinopril Lisinopril No 1{table QD Lisinopril 30 MG 30 MG t} 30 MG Albuterol Albuterol No 2{puffs Albuterol Sulfate HFA Sulfate HFA } Sulfate 108 (90 108 (90 HFA 108 Base) Base) (90 Base) MCG/ACT MCG/ACT MCG/ACT Paxlovid Paxlovid No 3{table BID Paxlovid (300/100) (300/100) ts} (300/100) 20 x 150 MG 20 x 150 MG 20 x 150 & 10 x & 10 x MG & 10 x 100MG 100MG 100MG Paxil 30 MG Paxil 30 MG No 1{table QD Paxil 30 t_in_th MG e_morni ng} Cheratussin Cheratussin No 5{ml} QID Cheratussi AC 100-10 AC 100-10 n AC MG/5ML MG/5ML 100-10 MG/5ML Cetirizine Cetirizine No 1{table QD Cetirizine HCl 10 MG HCl 10 MG t} HCl 10 MG Mirtazapine Mirtazapine No 1{table QD Mirtazapin 15 MG 15 MG t_at_be e 15 MG dtime} amLODIPine amLODIPine No 1{table amLODIPine Besylate 10 Besylate 10 t} Besylate MG MG 10 MG Flonase 50 Flonase 50 No 2{spray QD Flonase 50 MCG/ACT MCG/ACT _in_eac MCG/ACT h_nostr il} Cetirizine Cetirizine No 1{table QD Cetirizine HCl 10 MG HCl 10 MG t} HCl 10 MG Lisinopril Lisinopril No 1{table QD Lisinopril 30 MG 30 MG t} 30 MG Rosuvastati Rosuvastati No 1{table QD Rosuvastat n Calcium n Calcium t} in Calcium 10 MG 10 MG 10 MG Paxil 30 MG Paxil 30 MG No 1{table QD Paxil 30 t_in_th MG e_morni ng} Crestor 10 Crestor 10 No Crestor 10 MG MG MG Cheratussin Cheratussin No 5{ml} QID Cheratussi AC 100-10 AC 100-10 n AC MG/5ML MG/5ML 100-10 MG/5ML Paxil 20 MG Paxil 20 MG No 1{table QD Paxil 20 t_in_th MG e_morni ng} Crestor 10 Crestor 10 No Crestor 10 MG MG MG Flonase 50 Flonase 50 No 2{spray QD Flonase 50 MCG/ACT MCG/ACT _in_eac MCG/ACT h_nostr il} Cetirizine Cetirizine No 1{table QD Cetirizine HCl 10 MG HCl 10 MG t} HCl 10 MG PARoxetine PARoxetine No PARoxetine HCl 20 MG HCl 20 MG HCl 20 MG Tamiflu 75 Tamiflu 75 No 1{capsu BID Tamiflu 75 MG MG le} MG Lisinopril Lisinopril No 1{table QD Lisinopril 30 MG 30 MG t} 30 MG amLODIPine amLODIPine No 1{table amLODIPine Besylate 10 Besylate 10 t} Besylate MG MG 10 MG metFORMIN metFORMIN No 1{table BID metFORMIN HCl 500 MG HCl 500 MG t_with_ HCl 500 MG a_meal} Rosuvastati Rosuvastati No Rosuvastat n Calcium n Calcium in Calcium 10 MG 10 MG 10 MG Mirtazapine Mirtazapine No 1{table QD Mirtazapin 15 MG 15 MG t_at_be e 15 MG dtime} Flonase 50 Flonase 50 No 2{spray QD Flonase 50 MCG/ACT MCG/ACT _in_eac MCG/ACT h_nostr il} Paxil 30 MG Paxil 30 MG No 1{table QD Paxil 30 t_in_th MG e_morni ng} Tamiflu 75 Tamiflu 75 No 1{capsu BID Tamiflu 75 MG MG le} MG Lisinopril Lisinopril No 1{table QD Lisinopril 30 MG 30 MG t} 30 MG Cetirizine Cetirizine No 1{table QD Cetirizine HCl 10 MG HCl 10 MG t} HCl 10 MG Crestor 10 Crestor 10 No Crestor 10 MG MG MG amLODIPine amLODIPine No 1{table amLODIPine Besylate 10 Besylate 10 t} Besylate MG MG 10 MG Paxil 30 MG Paxil 30 MG No 1{table QD Paxil 30 t_in_th MG e_morni ng} Rosuvastati Rosuvastati No Rosuvastat n Calcium n Calcium in Calcium 10 MG 10 MG 10 MG Mirtazapine Mirtazapine No 1{table QD Mirtazapin 15 MG 15 MG t_at_be e 15 MG dtime} Flonase 50 Flonase 50 No 2{spray QD Flonase 50 MCG/ACT MCG/ACT _in_eac MCG/ACT h_nostr il} metFORMIN metFORMIN No 1{table BID metFORMIN HCl 500 MG HCl 500 MG t_with_ HCl 500 MG a_meal} Cheratussin Cheratussin No 5{ml} QID Cheratussi AC 100-10 AC 100-10 n AC MG/5ML MG/5ML 100-10 MG/5ML Flonase 50 Flonase 50 No 2{spray QD Flonase 50 MCG/ACT MCG/ACT _in_eac MCG/ACT h_nostr il} Vital Signs Vital Name Observation Time Observation Value Comments Source height 2022-06-22 09:00:00 68 [in_i] [facility] weight 2022-06-22 09:00:00 266.0 [lb_av] [facility] temperature 2022-06-22 09:00:00 97.6 [degF] [facility] bmi 2022-06-22 09:00:00 40.44 kg/m2 [facility] oximetry 2022-06-22 09:00:00 95 % [facility] respiratory rate 2022-06-22 09:00:00 16 /min Comm on [facility] blood pressure 2022-06-22 09:00:00 134 mm[Hg] [facility] systolic [facility] blood pressure 2022-06-22 09:00:00 72 mm[Hg] [facility] diastolic [facility] height 2022-03-11 10:00:00 68 [in_i] [facility] weight 2022-03-11 10:00:00 240 [lb_av] [facility] bmi 2022-03-11 10:00:00 36.49 kg/m2 [facility] height 2021-11-10 16:20:00 68 [in_i] [facility] weight 2021-11-10 16:20:00 253.6 [lb_av] [facility] temperature 2021-11-10 16:20:00 97.8 [degF] [facility] bmi 2021-11-10 16:20:00 38.56 kg/m2 [facility] oximetry 2021-11-10 16:20:00 95 % [facility] respiratory rate 2021-11-10 16:20:00 16 /min Comm on [facility] blood pressure 2021-11-10 16:20:00 160 mm[Hg] [facility] systolic [facility] blood pressure 2021-11-10 16:20:00 89 mm[Hg] [facility] - diastolic [facility] height 2021-08-05 08:00:00 68 [in_i] [facility] weight 2021-08-05 08:00:00 230 [lb_av] [facility] bmi 2021-08-05 08:00:00 34.97 kg/m2 [facility] blood pressure 2021-05-06 09:40:00 79 mm[Hg] [facility] - diastolic [facility] height 2021-05-06 09:40:00 68 [in_i] Common [facility] weight 2021-05-06 09:40:00 249 [lb_av] [facility] temperature 2021-05-06 09:40:00 97.2 [degF] [facility] bmi 2021-05-06 09:40:00 37.86 kg/m2 [facility] oximetry 2021-05-06 09:40:00 97 % Common [facility] respiratory rate 2021-05-06 09:40:00 19 /min Comm on [facility] blood pressure 2021-05-06 09:40:00 124 mm[Hg] Common [facility] - systolic [facility] Procedures This patient has no known procedures. Encounters Start End Encounter Admission Attending Care Care Encounter Source Date/Time Date/Time Type Type Clinicians Facility Department ID 2023-05-[address] [facility] [id number] Common 10:48:00 [facility] [address] [facility] 2023-03-11 Outpatient Foster [facility] [id number] Common 09:29:00 [facility] [address] [facility] 2023-03-04 Outpatient Foster, STLMLC STLMLC [id number] Common 09:10:00 [facility] [address] [facility] 2022-12-04 Outpatient Foster, STLMLC STLMLC [id number] Common 15:27:00 [facility] [address] [facility] 2022-12-01 Outpatient Foley, STLMLC STLMLC [id number] Common 08:13:00 Avnee [id number] [facility] 2022-11-16 Outpatient Flor, STLMLC STLMLC [id number] Common 09:22:01 Maria D 84[address] [facility] 2022-09-14 Outpatient AGUILAR, Na STLMLC STLMLC [id number] 2 Common 17:01:00 [id number] [facility] 2022-06-25 Outpatient Aguilar, Na STLMLC STLMLC [id number] 2 Common 15:59:01 [id number] [facility] 2022-06-18 Outpatient Aguilar, Na STLMLC STLMLC [id number] Common 14:51:01 [facility] 2022-06-02 Outpatient Aguilar, Na STLMLC STLMLC [id number] Common 09:00:00 [id number] [facility] 2022-05-23 Outpatient Aguilar, Na STLMLC STLMLC [id number] Common 08:36:00 [facility] 2022-03-09 Outpatient Aguilar, Na STLMLC STLMLC [id number] Common 08:04:00 [facility] 2021-08-13 Outpatient Aguilar, Na STLMLC STLMLC [id number] Common 14:36:09 [facility] 2021-08-13 Outpatient Aguilar, Na STLMLC STLMLC [id number] 2 Common 13:27:39 [id number] [facility] 2021-08-13 Outpatient Aguilar, Na STLMLC STLMLC [id number] Common 12:41:07 [id number] [facility] 2021-08-13 Outpatient Aguilar, Na STLMLC STLMLC [id number] Common 12:36:07 [id number] [facility] 2021-08-13 Outpatient Aguilar, Na STLMLC STLMLC [id number] Common 12:28:36 23826 [facility] 2021-08-13 Outpatient Aguilar, Na STLMLC STLMLC [id number] Common 12:13:50 [id number] [facility] 2021-08-13 Outpatient Aguilar, Na STLMLC STLMLC [id number] Common 12:10:18 [id number] [facility] 2021-08-13 Outpatient Aguilar, Na STLMLC STLMLC [id number] Common 12:07:30 00005 [facility] 2021-08-13 Outpatient Aguilar, Na STLMLC STLMLC [id number] Common 12:04:58 64231 [facility] 2021-08-13 Outpatient Aguilar, Na STLMLC STLMLC [id number] Common 11:37:36 02360 [facility] 2021-08-13 Outpatient Aguilar, Na STLMLC STLMLC [id number] Common 11:35:53 [id number] [facility] 2021-08-13 Outpatient Aguilar, Na STLMLC STLMLC [id number] Common 11:18:10 [id number] [facility] 2021-08-13 Outpatient Aguilar, Na STLMLC STLMLC [id number] Common 11:06:46 [id number] [facility] 2021-08-13 Outpatient Aguilar, Na STLMLC STLMLC [id number] Common 11:06:07 [id number] [facility] 2021-08-13 Outpatient Aguilar, Na STLMLC STLMLC [id number] 2 Common 11:03:47 [id number] [facility] 2023-05-16 2023-05-16 Outpatient GC_GCBZW_Ka PRIV PRIV [id number] [facility] 00:00:00 00:00:00 barry_Kenn [id number] Medic al 2022-12-01 2022-12-01 (TEL) STLMLC STLMLC [id number] Co mmon 00:00:00 00:00:00 [facility] 2022-06-22 2022-06-22 OFFICE STLMLC STLMLC [id number] Co mmon 00:00:00 00:00:00 VISIT [facility] PT - CHI LEVEL 4 [facility] 2022-06-03 2022-06-03 NO CHARGE STLMLC STLMLC [id number] Common 00:00:00 00:00:00 [facility] 2022-06-02 2022-06-02 OFFICE STLMLC STLMLC [id number] Co mmon 00:00:00 00:00:00 VISIT EST Spir [facility] PT LEVEL 3 [facility] 2022-06-02 2022-06-02 (TEL) STLMLC STLMLC [id number] Co mmon 00:00:00 00:00:00 [facility] 2022-06-01 2022-06-01 (TEL) STLMLC STLMLC [id number] Co mmon 00:00:00 00:00:00 [facility] 2022-05-12 2022-05-12 ([place]) Nurse STLMLC STLMLC [id number] Common 00:00:00 00:00:00 Visit [facility] 2022-05-11 2022-05-11 (TEL) STLMLC STLMLC [id number] Co mmon 00:00:00 00:00:00 [facility] 2022-05-11 2022-05-11 OFFICE STLMLC STLMLC [id number] Co mmon 00:00:00 00:00:00 VISIT EST Spir it PT LEVEL 3 [facility] 2022-03-11 2022-03-11 OFFICE STLMLC STLMLC [id number] Co mmon 00:00:00 00:00:00 VISIT [facility] PT - CHI LEVEL 4 [facility] 2021-11-102021-11-10 PREV VISIT STLMLC STLMLC [id number] Common 00:00:00 00:00:00 EST AGE Sin 40-64 - CHI [facility] 2021-08-05 2021-08-05 OFFICE STLMLC STLMLC [id number] Co mmon 00:00:00 00:00:00 VISIT Sin ESTAB PT - CHI LEVEL 4 [facility] 2021-06-03 2021-06-03 OFFICE STLMLC STLMLC [id number] Co mmon 00:00:00 00:00:00 VISIT EST Spir it PT LEVEL 3 - [facility] 2021-06-02 2021-06-02 (TEL) STLMLC STLMLC [id number] Co mmon 00:00:00 00:00:00 [facility] 2021-05-06 2021-05-06 OFFICE STLMLC STLMLC [id number] Co mmon 00:00:00 00:00:00 VISIT Sin ESTAB PT - CHI LEVEL 4 [facility] 2021-03-11 2021-03-11 (TEL) STLMLC STLMLC [id number] Co mmon 00:00:00 00:00:00 [facility] 2021-02-04 2021-02-04 Outpatient STLMLC STLMLC [id number] Common 00:00:00 00:00:00 [facility] 2020-10-09 2020-10-09 Outpatient STLMLC STLMLC [id number] Common 00:00:00 00:00:00 [facility] 2020-07-26 2020-07-26 Outpatient STLMLC STLMLC [id number] Common 00:00:00 00:00:00 [facility] 2020-07-03 2020-07-03 Outpatient STLMLC STLMLC [id number] Common 00:00:00 00:00:00 [facility] 2020-06-24 2020-06-24 Outpatient STLMLC STLMLC [id number] Common 00:00:00 00:00:00 [facility] 2020-06-04 2020-06-04 Outpatient STLMLC STLMLC [id number] Common 00:00:00 00:00:00 [facility] 2020-04-03 2020-04-03 [id number] Common 10:35:00 10:35:[address] [facility] 2020-03-04 2020-03-04 [facility] [id number] Common 14:40:00 14:40:[address] [facility] 2019-12-26 2019-12-26 [facility] [id number] Common 10:20:00 10:20:[address] [facility] 2019-11-27 2019-11-27 [facility] [id number] Common 08:40:00 08:40:[address] [facility] 2019-08-28 2019-08-28 [facility] [id number] Common 14:20:00 14:20:[address] [facility] 2019-08-15 2019-08-15 [facility] [id number] Common 13:20:00 13:20:[address] [facility] 2019-04-12 2019-04-12 [facility] [id number] Common 09:00:00 09:00:[address] [facility] 2019-03-21 2019-03-21 [facility] [id number] Common 16:23:00 16:23:[address] [facility] 2019-01-03 2019-01-03 [facility] [id number] Common 10:00:00 10:00:[address] [facility] 2018-12-19 2018-12-19 [facility] [id number] Common 10:00:00 10:00:[address] [facility] 2018-09-12 2018-09-12 [facility] [id number] Common 16:54:00 16:54:[address] [facility] 2018-08-15 2018-08-15 [facility] [id number] Common 15:45:00 15:45:[address] [facility] 2018-04-19 2018-04-19 [facility] [id number] Common 16:20:00 16:20:[address] [facility] 2018-04-01 2018-04-01 [facility] [id number] Common 08:30:00 08:30:[address] [facility] 2017-10-05 2017-10-05 [facility] [id number] Common 10:15:00 10:15:[address] [facility] Results Test Description Test Time Test Comments Results Result Comments Source POC, COVID 19 Antigen POC, COVID 19 + Flu by Mitra Antigen + Flu by Mitra SARS-COV 2 Antigen SARS-COV 2 Antigen
[2023-06-07] MEDS ORDERED: dexAMETHasone 4 MG TAB ONE (06:41)
[2023-06-07] MEDS ORDERED: AZITHROMYCIN 250 MG TAB ONE (07:53)
--- NOTE | 2023-06-07 08:26 | EDPHYS ---
Physician Documentation [facility] Name: Ricky Nash Age: 62 yrs Sex: Female : 1960 Arrival Date: 06/07/2023 Time: 06:04 Bed 8 Private MD: ED Physician Dada Contreras HPI: 06/07 06:23 This 62 yrs old Black Female presents to ER via Ambulatory with complaints of Sore ec2 Throat, Ear Pain, Congestion. 06:23 Patient arrives today for URI signs and symptoms. States that she been having 1 days of ec2 symptoms, she describes as sore throat with associated congestion and bilateral ear pain. Reports no fevers or chills, no nausea or vomiting, no issues with p.o. intake.. Historical: - Allergies: 06:18 NKA; as6 - PMHx: 06:18 Depression; Hyperlipidemia; Hypertension; as6 - PSHx: 06:18 Total abdominal hysterectomy; as6 - Immunization history:: Adult Immunizations up to date. - Social history:: Smoking status: Patient denies any tobacco usage or history of. ROS: 06:23 Constitutional: as per hpi ec2 Exam: 06:23 Constitutional: GEN: NAD Head: atraumatic Eyes: EOMI Ears: External ears are normal. ec2 Bilateral TMs are clear without evidence of infection CV: regular rate LUNGS: no respiratory distress, no wheezes, no rales, no rhonchi ABD: non-distended SKIN: no evidence of rashes MSK: no evidence of trauma NEURO: moves all extremities equally Vital Signs: 06:16 BP 152 / 87; Pulse 87; Resp 18 S; Temp 98(O); Pulse Ox 97% on R/A; Weight 117.93 kg as6 (R); Height 5 ft. 9 in. (R); Pain 5/10; 07:20 BP 166 / 109; Pulse 86; Pulse Ox 96% on R/A; tm6 07:55 BP 145 / 96; Pulse 83; Pulse Ox 94% on R/A; tm6 08:28 BP 138 / 87; Pulse 77; Pulse Ox 94% ; tm6 06:16 Body Mass Index 38.39 (117.93 kg, 175.26 cm) as6 06:16 Pain Scale: Adult as6 [place] Coma Score: 06:22 Eye Response: spontaneous(4). Motor Response: obeys commands(6). Verbal Response: nw1 oriented(5). Total: 15. MDM: 06:15 Patient medically screened. ec2 06/07 06:22 Order name: COVID-19 SARS RT PCR; Complete Time: 08:24 ec2 06/07 06:22 Order name: Influenza Screen (a \T\ B); Complete Time: 08:24 ec2 06/07 08:27 Order name: Chest Pa And Lat (2 Views) XRAY sp Administered Medications: 06:35 Drug: Dexamethasone PO 10 mg PO once Route: PO; nw1 07:42 Drug: AZITHromycin PO 500 mg PO once Route: PO; tm6 08:42 Drug: Albuterol Inhalation 2.5 mg Inhalation once Route: Inhalation; tm6 08:42 Drug: Ipratropium Inhalation Aerosol 0.5 mg Inhalation once Route: Inhalation; tm6 Disposition Summary: 06/07/23 08:25 Discharge Ordered Notes: Location: Home zoraida Problem: new zoraida Symptoms: have improved zoraida Condition: Stable zoraida Diagnosis - Acute upper respiratory infection, unspecified zoraida - Cough zoraida Followup: zoraida - With: Private Physician - When: 2 - 3 days - Reason: Recheck today's complaints, Continuance of care, Re-evaluation by your physician Discharge Instructions: - Discharge Summary Sheet zoraida - Upper Respiratory Infection, Adult zoraida - Cool Mist Vaporizer zoraida - Upper Respiratory Infection, Adult, [id number] zoraida - Cough, Adult, [id number] zoraida - Cough, Adult zoraida Forms: - Medication Reconciliation Form zoraida - Thank You Letter zoraida - Antibiotic Education zoraida - Prescription Opioid Use zoraida - Patient Portal Instructions zoraida - Leadership Thank You Letter zoraida - Work release form tm6 Prescriptions: - albuterol sulfate 90 mcg/actuation Inhalation HFA Aerosol Inhaler - inhale 2 inhalation INHALATION route every 4 to 6 hours as needed for shortness zoraida of breath or wheezing; 1 unit; Refills: 0, Product Selection Permitted - Tessalon Perles 100 mg Oral capsule - take 1 capsule ORAL route every 8 hours As needed; 30 capsule; Refills: 0, zoraida Product Selection Permitted - Medrol ([place]) 4 mg Oral Tablets, Dose Pack - take 1 tablet ORAL route as directed - follow package instructions; 1 packet; zoraida Refills: 0, Product Selection Permitted - Zithromax 500 mg Oral Tablet - take 1 tablet ORAL route once daily for 5 days; 5 tablet; Refills: 0, Product zoraida Selection Permitted Signatures: Dispatcher [employer] Dada Cohen MD MD cha Slawson, Ashby, RN RN as6 Joaquin Cook MD MD ec2 Lilly Franz RN RN tm6 Melissa Clay RN RN nw1 Corrections: (The following items were deleted from the chart) 06:22 06:22 Patient medically screened. ec2 ec2
--- NOTE | 2023-06-07 08:26 | ER ---
Nurse's Notes [facility] Name: Ricky Nash Age: 62 yrs Sex: Female : 1960 Arrival Date: 06/07/2023 Time: 06:04 Bed 8 Private MD: Diagnosis: Acute upper respiratory infection, unspecified;Cough Presentation: 06/07 06:18 Chief complaint: Patient states: sore throat, ringing ears, congestion, diarrhea that as6 started yesterday morning. Coronavirus screen: At this time, the client does not indicate any symptoms associated with coronavirus-19. Ebola Screen: No symptoms or risks identified at this time. Initial Sepsis Screen: Does the patient meet any 2 criteria? No. Patient's initial sepsis screen is negative. Does the patient have a suspected source of infection? No. Patient's initial sepsis screen is negative. Risk Assessment: Do you want to hurt yourself or someone else? Patient reports no desire to harm self or others. Onset of symptoms was June 06, 2023. 06:18 Acuity: MANOJ 4 as6 06:18 Method Of Arrival: Ambulatory as6 Historical: - Allergies: 06:18 NKA; as6 - PMHx: 06:18 Depression; Hyperlipidemia; Hypertension; as6 - PSHx: 06:18 Total abdominal hysterectomy; as6 - Immunization history:: Adult Immunizations up to date. - Social history:: Smoking status: Patient denies any tobacco usage or history of. Screenin:22 [facility] ED Fall Risk Assessment (Adult) History of falling in the last 3 months, nw1 including since admission No falls in past 3 months (0 pts) Confusion or Disorientation No (0 pts) Intoxicated or Sedated No (0 pts) Impaired Gait No (0 pts) Mobility Assist Device Used No (0 pt) Altered Elimination No (0 pt) Score/Fall Risk Level 0 - 2 = Low Risk Oriented to surroundings, Maintained a safe environment, Educated pt \T\ family on fall prevention, incl call for assistance when getting out of bed, Assessed \T\ reinforced patient's understanding of fall precautions, Provided non-skid footwear, Hourly rounding (assess needs \T\ fall precautionary measures) done. Abuse screen: Denies threats or abuse. Denies injuries from another. Nutritional screening: No deficits noted. Tuberculosis screening: No symptoms or risk factors identified. Assessment: 06:22 General: Appears in no apparent distress. Behavior is calm, cooperative, appropriate nw1 for age. Pain: Complains of pain in neck. Neuro: Level of Consciousness is awake, alert, obeys commands, Oriented to person, place, time, situation, Appropriate for age. Cardiovascular: No deficits noted. Denies chest pain, diaphoresis, fatigue, lightheadedness, nausea, palpitations, shortness of breath, syncope, vomiting. Respiratory: Airway is patent Respiratory effort is even, unlabored, Breath sounds are clear bilaterally. GI: No signs and/or symptoms were reported involving the gastrointestinal system. EENT: Throat is pink. Derm: No signs and/or symptoms reported regarding the dermatologic system. Musculoskeletal: No signs and/or symptoms reported regarding the musculoskeletal system. 06:56 Reassessment: Pt given tissues per request. Noted in bed with 0 s/s of acute nw1 respiratory distress or discomfort. BP noted elevated and cuff rearranged. BP noted elevated but patient states she took BP medication [employer]. Call light at bedside. 07:22 Reassessment: Patient appears in no apparent distress at this time. Patient and/or tm6 family updated on plan of care and expected duration. Pain level reassessed. Patient is alert, oriented x 3, equal unlabored respirations, skin warm/dry/pink. 07:55 Reassessment: Patient and/or family updated on plan of care and expected duration. Pain tm6 level reassessed. Patient is alert, oriented x 3, equal unlabored respirations, skin warm/dry/pink. 08:29 Reassessment: Patient appears in no apparent distress at this time. Patient and/or tm6 family updated on plan of care and expected duration. Pain level reassessed. Patient is alert, oriented x 3, equal unlabored respirations, skin warm/dry/pink. 08:58 Reassessment: Patient states feeling better. tm6 Vital Signs: 06:16 BP 152 / 87; Pulse 87; Resp 18 S; Temp 98(O); Pulse Ox 97% on R/A; Weight 117.93 kg as6 (R); Height 5 ft. 9 in. (R); Pain 5/10; 07:20 BP 166 / 109; Pulse 86; Pulse Ox 96% on R/A; tm6 07:55 BP 145 / 96; Pulse 83; Pulse Ox 94% on R/A; tm6 08:28 BP 138 / 87; Pulse 77; Pulse Ox 94% ; tm6 06:16 Body Mass Index 38.39 (117.93 kg, 175.26 cm) as6 06:16 Pain Scale: Adult as6 [place] Coma Score: 06:22 Eye Response: spontaneous(4). Motor Response: obeys commands(6). Verbal Response: nw1 oriented(5). Total: 15. ED Course: 06:06 Patient arrived in ED. jj6 06:07 Joaquin Cook MD is Attending Physician. ec2 06:16 Arm band placed on. as6 06:17 Melissa Clay, CIERRA is Primary Nurse. nw1 06:19 Triage completed. as6 06:22 Patient has correct armband on for positive identification. Bed in low position. Call nw1 light in reach. Side rails up X 1. Provided Education on: POC. Door closed. Noise minimized. Verbal reassurance given. 06:22 No provider procedures requiring assistance completed. Patient did not have IV access nw1 during this emergency room visit. 06:35 Influenza Screen (a \T\ B) Sent. nw1 06:35 COVID-19 SARS RT PCR Sent. nw1 07:27 Attending Physician role handed off by Joaquin Cook MD ec2 07:27 Dada Contreras MD is Attending Physician. ec2 08:41 Chest Pa And Lat (2 Views) XRAY In Process Unspecified. EDMS Administered Medications: 06:35 Drug: Dexamethasone PO 10 mg PO once Route: PO; nw1 07:42 Drug: AZITHromycin PO 500 mg PO once Route: PO; tm6 08:42 Drug: Albuterol Inhalation 2.5 mg Inhalation once Route: Inhalation; tm6 08:42 Drug: Ipratropium Inhalation Aerosol 0.5 mg Inhalation once Route: Inhalation; tm6 Medication: 06:22 VIS not applicable for this client. nw1 Outcome: 08:25 Discharge ordered by . zoraida 08:58 Discharged to home ambulatory, tm6 08:58 Condition: stable 08:58 Discharge instructions given to patient, Instructed on discharge instructions, follow up and referral plans. medication usage, Demonstrated understanding of instructions, follow-up care, medications, Prescriptions given X 4, 08:58 Patient left the ED. tm6 Signatures: Dispatcher [employer] Dada Cohen MD MD cha Jeffries, Jennifer jj6 Colton Causey, CIERRA RN as6 Joaquin Cook MD MD ec2 Lilly Franz RN RN tm6 Melissa Clay RN RN nw1
[2023-06-07] MEDS ORDERED: ALBUTEROL 2.5 MG/3 ML NEB SOL ONE (08:46)
[2023-06-07] MEDS ORDERED: IPRATROPIUM BROM 0.5MG/2.5ML ONE (08:46)
[2023-06-07 09:03] VITALS: TEMP 98
[2023-06-07 09:05] VITALS: O2SAT 94
[2023-06-07 09:06] VITALS: BP 138/87
--- NOTE | 2023-06-07 09:15 | RAD REPORT ---
EXAM DESCRIPTION: Hipolito Merritt (2 Views)06/07/2023 8:40 am CLINICAL HISTORY: Cough COMPARISON: 2017 FINDINGS: The lungs appear clear of acute infiltrate. The heart is normal size IMPRESSION: No acute abnormalities displayed
== END 2023-06-07 08:58 | disposition home or self-care (01) ==
LOC: ER 06:04
DX: J06.9 Acute upper respiratory infection, unspecified (principal); Z11.52 Encounter for screening for COVID-19; I10 Essential (primary) hypertension
CPT/HCPCS: 87635; 87804 ×2; 71046; 99284; J8540; J7613; J7644

== ENCOUNTER 2024-03-23 09:55 | Emergency (ER) | payer BC, OTHER ==
--- OUTSIDE RECORDS SUMMARY | 2024-03-23 10:00 | XMS REPORT | Continuity of Care Document ---
Author Name Unknown Address [address] [facility] [address] [place] [address] [facility] thconnect Address [address] [facility] [address] [facility] 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 Name Role Phone Luis Foster Attending Clinician Unavailable Jose Foley Attending Clinician Unavailable Maria D Ray Attending Clinician Unavailable Angeline AGUILAR Attending Clinician Unavailable GC_GCBZW_Kadiyala_S Attending Clinician Unavaila ble GC_GCBZW_Kadiyala_S Admitting Clinician Unavaila ble Payers Payer Name Policy Type Policy Number Effective Date Expirati on Date Source [facility] [id number] 2021 00:00:00 [place] [address] [id number] [facility] AETNA C1 [id number] [facility] Problems Condition Name Condition Details Condition Category Status Onset Date Resolution Date Last Treatment Date Treating Clinician Comments Source Allergic rhinitis Allergic rhinitis, unspecifie d seasonalit y, unspecifie d trigger Problem [facility] Hypertensi on HTN (hypertens ion) Problem [facility] Depression Depression Problem Co mmon [facility] Vitamin D deficiency Vitamin D deficiency Problem [facility] [id number] Unspecifie d injury of left lower leg, initial encounter Problem [facility] [id number] Severe obesity (BMI >= 40) Problem [facility] [id number] Morbid (severe) obesity due to excess calories Problem [facility] [id number] Adult general medical exam Problem [facility] Seasonal allergic rhinitis Seasonal allergic rhinitis, unspecifie d trigger Problem [facility] Hyperlipid emia Hyperlipid emia Problem [facility] Pure hyperchole sterolemia Pure hyperchole sterolemia Problem [facility] History of polyp of colon History of colon polyps Problem [facility] Circadian rhythm sleep disorder of shift work type Shifting sleep-work schedule Problem [facility] Social History Social Habit Start Date Stop Date Quantity Comments Source History of Tobacco Use [facility] Sex Assigned At [facility] Smoking Status Start Date Stop Date Source Never Smoker [facility] Medications Ordered Medication Name Filled Medication Name Start Date Stop Date Current Medication? Ordering Clinician Indication Dosage Frequency Signature (SIG) Comments Components Source metFORMIN HCl ER 750 MG metFORMIN HCl ER 750 MG 2022-07 0- 00:00: 00 No 1{table t_with_ evening _meal} QD metFORMIN HCl ER 750 MG Kenalog (Triamcinol one) Kenalog (Triamcinol one) 9-14 00:00: 00 No 40mg [facility] Crestor 10 MG Crestor 10 MG No Crestor 10 MG Paxil 30 MG Paxil 30 MG No 1{table t_in_th e_morni ng} QD Paxil 30 MG Flonase 50 MCG/ACT Flonase 50 MCG/ACT No 2{spray _in_eac h_nostr il} QD Flonase 50 MCG/ACT Lisinopril 30 MG Lisinopril 30 MG No 1{table t} QD Lisinopril 30 MG amLODIPine Besylate 10 MG amLODIPine Besylate 10 MG No 1{table t} amLODIPine Besylate 10 MG Cetirizine HCl 10 MG Cetirizine HCl 10 MG No 1{table t} QD Cetirizine HCl 10 MG Vital Signs Vital Name Observation Time Observation Value Jocelynn mays height 2024-01-13 08:40:00 68 [in_i] Commo n [facility] weight 2024-01-13 08:40:00 269.2 [lb_av] Co [facility] temperature 2024-01-13 08:40:00 97.3 [degF] Com [facility] bmi 2024-01-13 08:40:00 40.93 kg/m2 Comm on [facility] oximetry 2024-01-13 08:40:00 97 % Commo n [facility] blood pressure systolic 2024-01-13 08:40:00 134 mm[Hg] [facility] blood pressure diastolic 2024-01-13 08:40:00 78 mm[Hg] [facility] height 2023-09-13 08:20:00 68 [in_i] Commo n [facility] weight 2023-09-13 08:20:00 268 [lb_av] Comm on [facility] temperature 2023-09-13 08:20:00 97.1 [degF] Com [facility] bmi 2023-09-13 08:20:00 40.74 kg/m2 Comm on [facility] oximetry 2023-09-13 08:20:00 97 % Commo n [facility] blood pressure systolic 2023-09-13 08:20:00 134 mm[Hg] [facility] blood pressure diastolic 2023-09-13 08:20:00 78 mm[Hg] [facility] height 2023-09-13 08:20:00 68 [in_i] Commo n [facility] weight 2023-09-13 08:20:00 268 [lb_av] Comm on [facility] temperature 2023-09-13 08:20:00 97.1 [degF] Com [facility] bmi 2023-09-13 08:20:00 40.74 kg/m2 Comm on [facility] oximetry 2023-09-13 08:20:00 97 % Commo n [facility] blood pressure systolic 2023-09-13 08:20:00 134 mm[Hg] [facility] blood pressure diastolic 2023-09-13 08:20:00 78 mm[Hg] [facility] height 2023-05-13 08:30:00 68 [in_i] Commo n [facility] weight 2023-05-13 08:30:00 273.0 [lb_av] Co mmon [facility] temperature 2023-05-13 08:30:00 98.5 [degF] Com [facility] bmi 2023-05-13 08:30:00 41.5 kg/m2 Commo n [facility] oximetry 2023-05-13 08:30:00 97 % Commo n [facility] respiratory rate 2023-05-13 08:30:00 17 /min [facility] blood pressure systolic 2023-05-13 08:30:00 123 mm[Hg] [facility] blood pressure diastolic 2023-05-13 08:30:00 71 mm[Hg] [facility] height 2023-03-11 08:00:00 68 [in_i] Commo n [facility] weight 2023-03-11 08:00:00 272 [lb_av] Comm on [facility] temperature 2023-03-11 08:00:00 98.2 [degF] Com [facility] bmi 2023-03-11 08:00:00 41.35 kg/m2 Comm on [facility] blood pressure systolic 2023-03-11 08:00:00 138 mm[Hg] [facility] blood pressure diastolic 2023-03-11 08:00:00 78 mm[Hg] [facility] height 2023-01-11 13:20:00 68 [in_i] Commo n [facility] weight 2023-01-11 13:20:00 264.2 [lb_av] Co mmon [facility] temperature 2023-01-11 13:20:00 98.0 [degF] Com mon [facility] bmi 2023-01-11 13:20:00 40.17 kg/m2 Comm on [facility] oximetry 2023-01-11 13:20:00 97 % Commo n [facility] respiratory rate 2023-01-11 13:20:00 17 /min [facility] blood pressure systolic 2023-01-11 13:20:00 134 mm[Hg] [facility] blood pressure diastolic 2023-01-11 13:20:00 77 mm[Hg] [facility] height 2022-06-22 09:00:00 68 [in_i] Commo n [facility] weight 2022-06-22 09:00:00 266.0 [lb_av] Co mmon [facility] temperature 2022-06-22 09:00:00 97.6 [degF] Com mon [facility] bmi 2022-06-22 09:00:00 40.44 kg/m2 Comm on [facility] oximetry 2022-06-22 09:00:00 95 % Commo n [facility] respiratory rate 2022-06-22 09:00:00 16 /min [facility] blood pressure systolic 2022-06-22 09:00:00 134 mm[Hg] [facility] blood pressure diastolic 2022-06-22 09:00:00 72 mm[Hg] [facility] height 2022-03-11 10:00:00 68 [in_i] Commo n [facility] weight 2022-03-11 10:00:00 240 [lb_av] Comm on [facility] bmi 2022-03-11 10:00:00 36.49 kg/m2 Comm on [facility] height 2021-11-10 16:20:00 68 [in_i] Commo n [facility] weight 2021-11-10 16:20:00 253.6 [facility]av[facility] 2021-11-10 16:20:00 97.8 [degF] Com mon [facility] bmi 2021-11-10 16:20:00 38.56 kg/m2 Comm on [facility] oximetry 2021-11-10 16:20:00 95 % Commo n [facility] respiratory rate 2021-11-10 16:20:00 16 /min [facility] blood pressure systolic 2021-11-10 16:20:00 160 mm[Hg] [facility] blood pressure diastolic 2021-11-10 16:20:00 89 mm[Hg] [facility] height 2021-08-05 08:00:00 68 [in_i] Commo n [facility] weight 2021-08-05 08:00:00 230 [lb_av] Comm on [facility] bmi 2021-08-05 08:00:00 34.97 kg/m2 Comm on [facility] blood pressure diastolic 2021-05-06 09:40:00 79 mm[Hg] [facility] height 2021-05-06 09:40:00 68 [in_i] Commo n [facility] weight 2021-05-06 09:40:00 249 [lb_av] Comm on [facility] temperature 2021-05-06 09:40:00 97.2 [degF] Com mon [facility] bmi 2021-05-06 09:40:00 37.86 kg/m2 Comm on [facility] oximetry 2021-05-06 09:40:00 97 % Commo n [facility] respiratory rate 2021-05-06 09:40:00 19 /min [facility] blood pressure systolic 2021-05-06 09:40:00 124 mm[Hg] [facility] Encounters Start Date/Time End Date/Time Encounter Type Admission Type Attending Clinicians Care Facility Care Department Encounter ID Source 2024-01-12 10:56:00 Outpatient Foster, Luis [facility] [id number] [facility] 2024-01-11 10:00:00 Outpatient Foster, Luis [facility] [id number] [facility] 2023-11-18 08:09:00 Outpatient Foster, Lius [facility] [id number] [facility] 2023-05-12 10:48:00 Outpatient Foster, Luis [facility] [id number] [facility] 2023-03-11 09:29:00 Outpatient Foster, Luis [facility] [id number] [facility] 2023-03-04 09:10:00 Outpatient Foster, Luis [facility] [id number] [facility] 2022-12-04 15:27:00 Outpatient Foster, Luis [facility] [id number] [facility] 2022-12-01 08:13:00 Outpatient Jose [facility] [id number] [facility] 2022-11-16 09:22:01 Outpatient Maria D Ray [facility] [id number] [facility] 2022-09-14 17:01:00 Outpatient Angeline AGUILAR [facility] [id number] [facility] 2022-06-25 15:59:01 Outpatient AguilarAngeline dennis [facility] [id number] [facility] 2022-06-18 14:51:01 Outpatient AguilarAngeline dennis [facility] [id number] [facility] 2022-06-02 09:00:00 Outpatient AguilarAngeline dennis [facility] [id number] [facility] 2022-05-23 08:36:00 Outpatient Angeline Aguilar [facility] [id number] [facility] 2022-03-09 08:04:00 Outpatient Angeline Aguilar [facility] [id number] [facility] 2021-08-13 14:36:09 Outpatient Angeline Aguilar [facility] [id number] [facility] 2021-08-13 13:27:39 Outpatient Angeline Aguilar [facility] [id number] [facility] 2021-08-13 12:41:07 Outpatient AguilarAngeline dennis [facility] [id number] [facility] 2021-08-13 12:36:07 Outpatient AguilarAngeline dennis [facility] [id number] [facility] 2021-08-13 12:28:36 Outpatient AguilarAngeline dennis [facility] [id number] [facility] 2021-08-13 12:13:50 Outpatient AguilarAngeline dennis [facility] [id number] [facility] 2021-08-13 12:10:18 Outpatient Aguilar, Na [facility] [id number] [facility] 2021-08-13 12:07:30 Outpatient Aguilar, Na [facility] [id number] [facility] 2021-08-13 12:04:58 Outpatient Aguilar, Na [facility] [id number] [facility] 2021-08-13 11:37:36 Outpatient Aguilar, Na [facility] [id number] [facility] 2021-08-13 11:35:53 Outpatient Aguilar, Na [facility] [id number] [facility] 2021-08-13 11:18:10 Outpatient Aguilar, Na [facility] [id number] [facility] 2021-08-13 11:06:46 Outpatient Aguilar, Na [facility] [id number] [facility] 2021-08-13 11:06:07 Outpatient Aguilar, Na [facility] [id number] [facility] 2021-08-13 11:03:47 Outpatient Aguilar, Na [facility] [id number] [facility] 2024-01-13 00:00:00 2024-01-13 00:00:00 PREV VISIT EST AGE 40-64 [facility] [id number] [facility] 2023-09-13 00:00:00 2023-09-13 00:00:00 OFFICE VISIT ESTAB PT LEVEL 4 [facility] [id number] [facility] 2023-05-19 00:00:00 2023-05-19 00:00:00 (TEL) [facility] [id number] [facility] 2023-05-16 00:00:00 2023-05-16 00:00:00 Outpatient GC_GCBZW_Ka diyala_S [facility] [id number] [facility] 2023-05-13 00:00:00 2023-05-13 00:00:00 PREV VISIT EST AGE 40-64 [facility] [id number] [facility] 2023-05-07 00:00:00 2023-05-07 00:00:00 (TEL) STL[facility]C [facility] [id number] [facility] 2023-04-09 00:00:00 2023-04-09 00:00:00 (TEL) [facility]C [facility] [id number] [facility] 2023-04-08 00:00:00 2023-04-08 00:00:00 (TEL) [facility] [id number] [facility] 2023-03-18 00:00:00 2023-03-18 00:00:00 (TEL) STL[facility]C [facility] [id number] [facility] 2023-03-11 00:00:00 2023-03-11 00:00:00 (TEL) STL[facility]C [facility] [id number] [facility] 2023-03-11 00:00:00 2023-03-11 00:00:00 OFFICE VISIT NEW PT LEVEL 3 [facility] [id number] [facility] 2023-02-17 00:00:00 2023-02-17 00:00:00 (TEL) STL[facility]C [facility] [id number] [facility] 2023-01-11 00:00:00 2023-01-11 00:00:00 OFFICE VISIT ESTAB PT LEVEL 4 [facility] [id number] [facility] 2022-12-01 00:00:00 2022-12-01 00:00:00 (TEL) [facility]C [facility] [id number] [facility] 2022-06-22 00:00:00 2022-06-22 00:00:00 OFFICE VISIT ESTAB PT LEVEL 4 [facility] [id number] [facility] 2022-06-03 00:00:00 2022-06-03 00:00:00 NO CHARGE ST[facility]C ST[facility] [id number] [facility] 2022-06-02 00:00:00 2022-06-02 00:00:00 OFFICE VISIT EST PT LEVEL 3 [facility] [id number] [facility] 2022-06-02 00:00:00 2022-06-02 00:00:00 (TEL) STLMLC [facility] [id number] [facility] 2022-06-01 00:00:00 2022-06-01 00:00:00 (TEL) STL[facility]C [facility] [id number] [facility] 2022-05-12 00:00:00 2022-05-12 00:00:00 ([place]) Nurse Visit [facility] [id number] [facility] 2022-05-11 00:00:00 2022-05-11 00:00:00 (TEL) STLMLC [facility]C [id number] [facility] 2022-05-11 00:00:00 2022-05-11 00:00:00 OFFICE VISIT EST PT LEVEL 3 [facility] [id number] [facility] 2022-03-11 00:00:00 2022-03-11 00:00:00 OFFICE VISIT ESTAB PT LEVEL 4 [facility] [id number] [facility] 2021-11-10 00:00:00 2021-11-10 00:00:00 PREV VISIT EST AGE 40-64 STLMLC STL[facility]C [id number] [facility] 2021-08-05 00:00:00 2021-08-05 00:00:00 OFFICE VISIT ESTAB PT LEVEL 4 [facility]C ST[facility]C [id number] [facility] 2021-06-03 00:00:00 2021-06-03 00:00:00 OFFICE VISIT EST PT LEVEL 3 [facility] [id number] [facility] 2021-06-02 00:00:00 2021-06-02 00:00:00 (TEL) STLMLC ST[facility]C [id number] [facility] 2021-05-06 00:00:00 2021-05-06 00:00:00 OFFICE VISIT ESTAB PT LEVEL 4 [facility] ST[facility] [id number] [facility] 2021-03-11 00:00:00 2021-03-11 00:00:00 (TEL) STLMLC [facility] [id number] [facility] 2021-02-04 00:00:00 2021-02-04 00:00:00 Outpatient [facility] [id number] [facility] 2020-10-09 00:00:00 2020-10-09 00:00:00 Outpatient [facility] [id number] [facility] 2020-07-26 00:00:00 2020-07-26 00:00:00 Outpatient [facility] [id number] [facility] 2020-07-03 00:00:00 2020-07-03 00:00:00 Outpatient [facility] [id number] [facility] 2020-06-24 00:00:00 2020-06-24 00:00:00 Outpatient [facility] [id number] [facility] 2020-06-04 00:00:00 2020-06-04 00:00:00 Outpatient [facility] [id number] [facility] 2020-04-03 10:35:00 2020-04-03 10:35:[address] [facility] [id number] [facility] 2020-03-04 14:40:00 2020-03-04 14:40:[address] [facility] [id number] [facility] 2019-12-26 10:20:00 2019-12-26 10:20:[address] [facility] [id number] [facility] 2019-11-27 08:40:00 2019-11-27 08:40:[address] [facility] [id number] [facility] 2019-08-28 14:20:00 2019-08-28 14:20:[address] [facility] [id number] [facility] 2019-08-15 13:20:00 2019-08-15 13:20:[address] [facility] [id number] [facility] 2019-04-12 09:00:00 2019-04-12 09:00:[address] [facility] [id number] [facility] 2019-03-21 16:23:00 2019-03-21 16:23:[address] [facility] [id number] [facility] 2019-01-03 10:00:00 2019-01-03 10:00:[address] [facility] [facility] [id number] [facility] 2018-12-19 10:00:00 2018-12-19 10:00:[address] [facility] [id number] [facility] 2018-09-12 16:54:00 2018-09-12 16:54:[address] [facility] [id number] [facility] 2018-08-15 15:45:00 2018-08-15 15:45:[address] [facility] [id number] [facility] 2018-04-19 16:20:00 2018-04-19 16:20:[address] [facility] [id number] [facility] 2018-04-01 08:30:00 2018-04-01 08:30:00 Outpatient [facility] [id number] [facility] 2017-10-05 10:15:00 2017-10-05 10:15:00 Outpatient [facility] [id number] [facility] Results Test Description Test Time Test Comments Results Result Co mments Source CBC W/AUTO [id number] 00:00:00* Test Item Value Reference Range Interpretation Comme nts NUCLEATED RBCS (test code = 62740-9) 0.0 /100 WBC'S See_Comment [Automated messa ge] The system which generated this result transmitted reference range: 0.0 /100 WBC'S. The reference range was not used to interpret this result as normal/abnormal. ABSOLUTE EOSINOPHILS (test code = 07066-6) 0.13 K/UL See_Comment [Automated messa ge] The system which generated this result transmitted reference range: 0.00-0.50 K/UL. The reference range was not used to interpret this result as normal/abnormal. ABSOLUTE LYMPHOCYTES (test code = 95525-0) 1.82 K/UL See_Comment [Automated messa ge] The system which generated this result transmitted reference range: 1.00-4.00 K/UL. The reference range was not used to interpret this result as normal/abnormal. ABSOLUTE MONOCYTES (test code = 93133-8) 0.46 K/UL See_Comment [Automated messa ge] The system which generated this result transmitted reference range: 0.20-1.00 K/UL. The reference range was not used to interpret this result as normal/abnormal. ABSOLUTE NEUTROPHILS (test code = 34238-8) 5.25 K/UL See_Comment [Automated messa ge] The system which generated this result transmitted reference range: 1.50-7.50 K/UL. The reference range was not used to interpret this result as normal/abnormal. BASOPHILS (test code = 26078-9) 0.8 % EOSINOPHILS (test code = 06772-8) 1.7 % HEMATOCRIT (test code = 56350-9) 42.9 % See_Comment [Automated messa ge] The system which generated this result transmitted reference range: 34.0-45.0 %. The reference range was not used to interpret this result as normal/abnormal. HEMOGLOBIN (test code = 718-7) 14.3 G/DL See_Comment [Automated messa ge] The system which generated this result transmitted reference range: 11.5-15.5 G/DL. The reference range was not used to interpret this result as normal/abnormal. LYMPHOCYTES (test code = 76167-6) 23.5 % MCH (test code = 52120-0) 30.8 PG See_Comment [Automated messa ge] The system which generated this result transmitted reference range: 25.0-33.0 PG. The reference range was not used to interpret this result as normal/abnormal. MCHC (test code = 09815-6) 33.3 G/DL See_Comment [Automated messa ge] The system which generated this result transmitted reference range: 31.0-36.0 G/DL. The reference range was not used to interpret this result as normal/abnormal. MCV (test code = 67954-5) 92.3 fL See_Comment [Automated messa ge] The system which generated this result transmitted reference range: 80.0-99.0 fL. The reference range was not used to interpret this result as normal/abnormal. MONOCYTES (test code = 67348-6) 5.9 % NEUTROPHILS (test code = 06027-3) 67.8 % PLATELET COUNT (test code = 46746-9) 253 K/UL See_Comment [Automated messa ge] The system which generated this result transmitted reference range: 130-400 K/UL. The reference range was not used to interpret this result as normal/abnormal. RBC (test code = 51656-0) 4.65 M/UL See_Comment [Automated messa ge] The system which generated this result transmitted reference range: 3.80-5.40 M/UL. The reference range was not used to interpret this result as normal/abnormal. RDW (test code = 31940-9) 12.1 % See_Comment [Automated messa ge] The system which generated this result transmitted reference range: 11.5-15.0 %. The reference range was not used to interpret this result as normal/abnormal. WBC (test code = 59350-0) 7.7 K/UL See_Comment [Automated messa ge] The system which generated this result transmitted reference range: 3.5-11.0 K/UL. The reference range was not used to interpret this result as normal/abnormal. 3D SCR GOI BILAT W/CAD3D SCR GIO BILAT W/CADPOC, COVID 19 Antigen + Flu by Mitra POC, COVID 19 Antigen + Flu by SofiaSARS-COV 2 AntigenSARS-COV 2 Antigen
[2024-03-23 10:42] LABS: SARS-CoV-2 Antigen CONTROL BLUE LINE VIS/BG OK; SARS-CoV-2 Antigen Rapid Res Negative (Negative)
--- NOTE | 2024-03-23 11:39 | EDPHYS ---
Physician Documentation [facility] Name: Ricky Nash Age: 63 yrs Sex: Female : 1960 Arrival Date: 03/23/2024 Time: 09:55 Bed 9 Private MD: ED Physician Benigno Zuñiga HPI: 03/23 11:54 This 63 yrs old Black Female presents to ER via Ambulatory with complaints of Sore ms3 Throat, Cough. 11:54 63-year-old female past medical history of depression, hyperlipidemia, hypertension ms3 presents to the emergency department for sore throat, cough that began on Wednesday. 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 Historical: - Allergies: 10:16 NKA; ko1 - PMHx: 10:16 Depression; Hyperlipidemia; Hypertension; ko1 - PSHx: 10:16 Total abdominal hysterectomy; ko1 - Immunization history:: Adult Immunizations unknown. - Infectious Disease History:: Denies. - Social history:: Smoking status: Patient denies any tobacco usage or history of. ROS: 11:54 Constitutional: Negative for fever, and chills. Cardiovascular: Negative for chest ms3 pain, and palpitations. Abdomen/GI: Negative for abdominal pain, nausea, vomiting, diarrhea, and constipation, MS/Extremity: Negative for injury and deformity, 11:54 ENT: Positive for sore throat, 11:54 Respiratory: Positive for cough, Exam: 11:54 Constitutional: This is a well developed, well nourished patient who is awake, alert, ms3 and in no acute distress. Head/Face: Normocephalic, atraumatic. Cardiovascular: Regular rate and rhythm with a normal S1 and S2. No gallops, murmurs, or rubs. Normal PMI, no JVD. No pulse deficits. Respiratory: Lungs have equal breath sounds bilaterally, clear to auscultation and percussion. No rales, rhonchi or wheezes noted. No increased work of breathing, no retractions or nasal flaring. Abdomen/GI: Soft, non-tender, with normal bowel sounds. No distension or tympany. No guarding or rebound. No evidence of tenderness throughout. Skin: Warm, dry with normal turgor. Normal color with no rashes, no lesions, and no evidence of cellulitis. MS/ Extremity: Pulses equal, no cyanosis. Neurovascular intact. Full, normal range of motion. Vital Signs: 10:15 BP 170 / 89; Pulse 103; Resp 18; Temp 98.9; Pulse Ox 96% ; ko1 MDM: 10:14 Patient medically screened. ms3 11:54 Differential diagnosis: influenza, upper respiratory infection, viral syndrome. Data ms3 reviewed: vital signs, nurses notes, lab test result(s), and as a result, I will discharge patient. Counseling: I had a detailed discussion with the patient and/or guardian regarding the historical points, exam findings, and any diagnostic results supporting the discharge/admit diagnosis, lab results, the need for outpatient follow up, to return to the emergency department if symptoms worsen or persist or if there are any questions or concerns that arise at home. ED course: Discussed labs with patient. Patient to follow-up with primary care physician in 2 to 3 days. Patient understands and agrees with plan. All questions were answered. Return precautions discussed include worsening symptoms, or any other concerns. 03/23 10:14 Order name: SARS RAPID; Complete Time: 11:30 ms3 03/23 10:14 Order name: Flu; Complete Time: 11:30 ms3 Administered Medications: No medications were administered Disposition Summary: 03/23/24 11:39 Discharge Ordered Notes: Location: Home ms3 Condition: Stable ms3 Diagnosis - Acute upper respiratory infection, unspecified ms3 Followup: ms3 - With: Luis Foster DO - When: 2 - 3 days - Reason: Recheck today's complaints Discharge Instructions: - Discharge Summary Sheet ms3 - Upper Respiratory Infection, Adult ms3 Forms: - Medication Reconciliation Form ms3 - Antibiotic Education ms3 - Prescription Opioid Use ms3 - Patient Portal Instructions ms3 - Leadership Thank You Letter ms3 Prescriptions: - Claritin 10 mg Oral Tablet - take 1 tablet ORAL route once daily As needed; 30 tablet; Refills: 0, Product ms3 Selection Permitted - benzonatate 200 mg Oral capsule - take 1 capsule ORAL route 3 times per day as needed; 20 capsule; Refills: 0, ms3 Product Selection Permitted Signatures: Dispatcher [employer] EDMS Benigno Zuñiga DO DO ms3 Yu Hurtado RN RN ko1
--- NOTE | 2024-03-23 11:39 | ER ---
Nurse's Notes [facility] Name: Ricky Nash Age: 63 yrs Sex: Female : 1960 Arrival Date: 03/23/2024 Time: 09:55 Bed 9 Private MD: Diagnosis: Acute upper respiratory infection, unspecified Presentation: 03/23 10:15 Chief complaint: Patient states: sore throat and drainage since Wednesday. Coronavirus ko1 screen: congestion, sore throat, Client presents with at least one sign or symptom that may indicate coronavirus-19. Standard/surgical mask placed on the client. Ebola Screen: No symptoms or risks identified at this time. Initial Sepsis Screen: Does the patient meet any 2 criteria? No. Patient's initial sepsis screen is negative. Does the patient have a suspected source of infection? No. Patient's initial sepsis screen is negative. Risk Assessment: Do you want to hurt yourself or someone else? Patient reports no desire to harm self or others. Onset of symptoms was March 23, 2024. 10:15 Method Of Arrival: Ambulatory ko1 10:15 Acuity: MANOJ 4 ko1 Triage Assessment: 10:16 General: Appears in no apparent distress. Behavior is calm, cooperative, appropriate ko1 for age. Pain: Complains of pain in sore throat. EENT: Reports nasal congestion sore throat. Historical: - Allergies: 10:16 NKA; ko1 - PMHx: 10:16 Depression; Hyperlipidemia; Hypertension; ko1 - PSHx: 10:16 Total abdominal hysterectomy; ko1 - Immunization history:: Adult Immunizations unknown. - Infectious Disease History:: Denies. - Social history:: Smoking status: Patient denies any tobacco usage or history of. Screenin:36 [facility] ED Fall Risk Assessment (Adult) History of falling in the last 3 months, ld1 including since admission No falls in past 3 months (0 pts) Confusion or Disorientation No (0 pts) Intoxicated or Sedated No (0 pts) Impaired Gait No (0 pts) Mobility Assist Device Used No (0 pt) Altered Elimination No (0 pt) Score/Fall Risk Level 0 - 2 = Low Risk Oriented to surroundings, Maintained a safe environment, Educated pt \T\ family on fall prevention, incl call for assistance when getting out of bed, Assessed \T\ reinforced patient's understanding of fall precautions, Hourly rounding (assess needs \T\ fall precautionary measures) done. Abuse screen: Denies threats or abuse. Denies injuries from another. Nutritional screening: No deficits noted. Tuberculosis screening: No symptoms or risk factors identified. Assessment: 10:36 Respiratory: Airway is patent Respiratory effort is even, unlabored, Breath sounds are ld1 clear bilaterally. EENT: Throat is pink. 11:15 Neuro: Level of Consciousness is awake, alert, obeys commands, Oriented to person, aa5 place, time, situation. Respiratory: Airway is patent Respiratory effort is even, unlabored, Respiratory pattern is regular, symmetrical. Derm: Skin is dry, Skin is normal, Skin temperature is warm. 11:15 Respiratory: Reports cough. aa5 11:54 Neuro: Level of Consciousness is awake, alert, obeys commands, Oriented to person, aa5 place, time, situation. Respiratory: Airway is patent Respiratory effort is even, unlabored, Respiratory pattern is regular, symmetrical. Derm: Skin is dry, Skin is normal, Skin temperature is warm. Vital Signs: 10:15 BP 170 / 89; Pulse 103; Resp 18; Temp 98.9; Pulse Ox 96% ; ko1 ED Course: 09:58 Patient arrived in ED. im 10:00 Benigno Zuñiga DO is Attending Physician. ms3 10:16 Triage completed. ko1 10:16 Arm band placed on right wrist. Patient placed in waiting room, Patient notified of ko1 wait time. 10:18 Flu Sent. bc6 10:18 SARS RAPID Sent. bc6 10:18 COVID swab sent to lab. Flu and/or RSV swab sent to lab. bc6 10:36 No provider procedures requiring assistance completed. Patient did not have IV access ld1 during this emergency room visit. 10:36 Patient has correct armband on for positive identification. Provided Education on: [email or web address] 11:38 Luis Foster DO is Referral Physician. ms3 11:55 Katey Rice, CIERRA is Primary Nurse. aa5 Administered Medications: No medications were administered Medication: 10:36 VIS not applicable for this client. ld1 Outcome: 11:39 Discharge ordered by MD. ms3 11:54 Discharged to home ambulatory, aa5 11:54 Condition: stable 11:54 Discharge instructions given to patient, Instructed on discharge instructions, follow up and referral plans. medication usage, Demonstrated understanding of instructions, follow-up care, medications, Prescriptions given X 2, 11:55 Patient left the ED. aa5 Signatures: Katey Rice, RN RN aa5 Benigno Zuñiga DO DO ms3 Shruti Zuñiga RN RN ld1 Yu Hurtado RN RN ko1 Paula Suárez 6 Chiqui Trammell
[2024-03-23 12:19] VITALS: BP 170/89; TEMP 98.9; O2SAT 96
== END 2024-03-23 11:55 | disposition home or self-care (01) ==
LOC: ER 09:55
DX: J06.9 Acute upper respiratory infection, unspecified (principal); Z11.52 Encounter for screening for COVID-19
CPT/HCPCS: 36415; 87804; 87811; 99283

== ENCOUNTER 2024-09-27 11:47 | Emergency (ER) | payer BC, OTHER ==
--- OUTSIDE RECORDS SUMMARY | 2024-09-27 11:51 | XMS REPORT | Continuity of Care Document ---
Author Name Unknown Address [address] [place] [address] [facility] Address 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 Name Role Phone Luis Foster Attending Clinician Unavailable Jose Foley Attending Clinician Unavailable Maria D Ray Attending Clinician Unavailable Angeline AGUILAR Attending Clinician Unavailable GC_GCBZW_Kadiyala_S Attending Clinician Unavaila ble GC_GCBZW_Kadiyala_S Admitting Clinician Unavaila ble Payers Payer Name Policy Type Policy Number Effective Date Expirati on Date Source [facility] 6 [id number] 2021 00:00:00 [facility] 6 [id number] Common [facility] AETNA C1 [id number] [facility] Problems Condition Name Condition Details Condition Category Status Onset Date Resolution Date Last Treatment Date Treating Clinician Comments Source Allergic rhinitis Allergic rhinitis, unspecifie d seasonalit y, unspecifie d trigger Problem [facility] Hypertensi on HTN (hypertens ion) Problem [facility] Depression Depression Problem Co mmon [facility] Vitamin D deficiency Vitamin D deficiency Problem [facility] [id number] Unspecifie d injury of left lower leg, initial encounter Problem [facility] [id number] Severe obesity (BMI >= 40) Problem [facility] [id number] Morbid (severe) obesity due to excess calories Problem [facility] [id number] Adult general medical exam Problem [facility] Seasonal allergic rhinitis Seasonal allergic rhinitis, unspecifie d trigger Problem [facility] Hyperlipid emia Hyperlipid emia Problem [facility] Pure hyperchole sterolemia Pure hyperchole sterolemia Problem [facility] History of polyp of colon History of colon polyps Problem [facility] Circadian rhythm sleep disorder of shift work type Shifting sleep-work schedule Problem [facility] Social History Social Habit Start Date Stop Date Quantity Comments Source History of Tobacco Use [facility] Sex Assigned At [facility] Smoking Status Start Date Stop Date Source Never Smoker [facility] Medications Ordered Medication Name Filled Medication Name Start Date Stop Date Current Medication? Ordering Clinician Indication Dosage Frequency Signature (SIG) Comments Components Source metFORMIN HCl ER 750 MG metFORMIN HCl ER 750 MG 2022-07 0- 00:00: 00 No 1{table t_with_ evening _meal} QD metFORMIN HCl ER 750 MG Kenalog (Triamcinol one) Kenalog (Triamcinol one) 9-14 00:00: 00 No 40mg [facility] Crestor 10 MG Crestor 10 [...] Vital Name Observation Time Observation Value Comments Kenn mays height 2024-08-22 08:15:00 68 [in_i] Commo n [facility] weight 2024-08-22 08:15:00 271.6 [lb_av] Co mmon [facility] temperature 2024-08-22 08:15:00 97.3 [degF] Com mon [facility] bmi 2024-08-22 08:15:00 41.29 kg/m2 Comm on [facility] oximetry 2024-08-22 08:15:00 96 % Commo n [facility] respiratory rate 2024-08-22 08:15:00 17 /min [facility] blood pressure systolic 2024-08-22 08:15:00 127 mm[Hg] Common [facility] blood pressure diastolic 2024-08-22 08:15:00 82 mm[Hg] Common [facility] height 2024-05-10 08:15:00 68 [in_i] Commo n [facility] weight 2024-05-10 08:15:00 271 [lb_av] Comm on [facility] temperature 2024-05-10 08:15:00 95 [degF] Comm on [facility] bmi 2024-05-10 08:15:00 41.2 kg/m2 Commo n [facility] oximetry 2024-05-10 08:15:00 97 % Commo n [facility] respiratory rate 2024-05-10 08:15:00 16 /min [facility] blood pressure systolic 2024-05-10 08:15:00 138 mm[Hg] [facility] blood pressure diastolic 2024-05-10 08:15:00 77 mm[Hg] Common [facility] height 2024-05-10 08:15:00 68 [in_i] Commo n [facility] weight 2024-05-10 08:15:00 271 [lb_av] Comm on [facility] temperature 2024-05-10 08:15:00 95 [degF] Comm on [facility] bmi 2024-05-10 08:15:00 41.2 kg/m2 Commo n [facility] oximetry 2024-05-10 08:15:00 97 % Commo n [facility] respiratory rate 2024-05-10 08:15:00 16 /min Common [facility] blood pressure systolic 2024-05-10 08:15:00 138 mm[Hg] Common [facility] blood pressure diastolic 2024-05-10 08:15:00 77 mm[Hg] Common [facility] height 2024-01-13 08:40:00 68 [in_i] Commo n [facility] weight 2024-01-13 08:40:00 269.2 [lb_av] Co mmon [facility] temperature 2024-01-13 08:40:00 97.3 [degF] Com mon [facility] bmi 2024-01-13 08:40:00 40.93 kg/m2 Comm on [facility] oximetry 2024-01-13 08:40:00 97 % Commo n [facility] blood pressure systolic 2024-01-13 08:40:00 134 mm[Hg] [facility] blood pressure diastolic 2024-01-13 08:40:00 78 mm[Hg] Common [facility] height 2023-09-13 08:20:00 68 [in_i] Commo n [facility] weight 2023-09-13 08:20:00 268 [lb_av] Comm on [facility] temperature 2023-09-13 08:20:00 97.1 [degF] Com [facility] bmi 2023-09-13 08:20:00 40.74 kg/m2 Comm on [facility] oximetry 2023-09-13 08:20:00 97 % Commo n [facility] blood pressure systolic 2023-09-13 08:20:00 134 mm[Hg] [facility] blood pressure diastolic 2023-09-13 08:20:00 78 mm[Hg] [facility] height 2023-09-13 08:20:00 68 [in_i] Commo n [facility] weight 2023-09-13 08:20:00 268 [lb_av] Comm on [facility] temperature 2023-09-13 08:20:00 97.1 [degF] Com [facility] bmi 2023-09-13 08:20:00 40.74 kg/m2 Comm on [facility] oximetry 2023-09-13 08:20:00 97 % Commo n [facility] blood pressure systolic 2023-09-13 08:20:00 134 mm[Hg] [facility] blood pressure diastolic 2023-09-13 08:20:00 78 mm[Hg] Common [facility] height 2023-05-13 08:30:00 68 [in_i] Commo n [facility] weight 2023-05-13 08:30:00 273.0 [lb_av] Co mmon [facility] temperature 2023-05-13 08:30:00 98.5 [degF] Com [facility] bmi 2023-05-13 08:30:00 41.5 kg/m2 Commo n [facility] oximetry 2023-05-13 08:30:00 97 % Commo n [facility] respiratory rate 2023-05-13 08:30:00 17 /min [facility] blood pressure systolic 2023-05-13 08:30:00 123 mm[Hg] Common [facility] blood pressure diastolic 2023-05-13 08:30:00 71 mm[Hg] Common [facility] height 2023-03-11 08:00:00 68 [in_i] Commo n [facility] weight 2023-03-11 08:00:00 272 [lb_av] Comm on [facility] temperature 2023-03-11 08:00:00 98.2 [degF] Com [facility] bmi 2023-03-11 08:00:00 41.35 kg/m2 Comm on [facility] blood pressure systolic 2023-03-11 08:00:00 138 mm[Hg] Common [facility] blood pressure diastolic 2023-03-11 08:00:00 78 mm[Hg] [facility] height 2023-01-11 13:20:00 68 [in_i] Commo n [facility] weight 2023-01-11 13:20:00 264.2 [lb_av] Co mmon [facility] temperature 2023-01-11 13:20:00 98.0 [degF] Com [facility] bmi 2023-01-11 13:20:00 40.17 kg/m2 Comm on [facility] oximetry 2023-01-11 13:20:00 97 % Commo n [facility] respiratory rate 2023-01-11 13:20:00 17 /min Common [facility] blood pressure systolic 2023-01-11 13:20:00 134 mm[Hg] [facility] blood pressure diastolic 2023-01-11 13:20:00 77 mm[Hg] Common [facility] height 2022-06-22 09:00:00 68 [in_i] Commo n [facility] weight 2022-06-22 09:00:00 266.0 [lb_av] Co mmon [facility] temperature 2022-06-22 09:00:00 97.6 [degF] Com mon [facility] bmi 2022-06-22 09:00:00 40.44 kg/m2 Comm on [facility] oximetry 2022-06-22 09:00:00 95 % Commo n [facility] respiratory rate 2022-06-22 09:00:00 16 /min Common [facility] blood pressure systolic 2022-06-22 09:00:00 134 mm[Hg] Common [facility] blood pressure diastolic 2022-06-22 09:00:00 72 mm[Hg] [facility] height 2022-03-11 10:00:00 68 [in_i] Commo n [facility] weight 2022-03-11 10:00:00 240 [lb_av] Comm on [facility] bmi 2022-03-11 10:00:00 36.49 kg/m2 Comm on [facility] height 2021-11-10 16:20:00 68 [in_i] Commo n [facility] weight 2021-11-10 16:20:00 253.6 [lb_av] Co mmon [facility] temperature 2021-11-10 16:20:00 97.8 [degF] Com mon [facility] bmi 2021-11-10 16:20:00 38.56 kg/m2 Comm on [facility] oximetry 2021-11-10 16:20:00 95 % Commo n [facility] respiratory rate 2021-11-10 16:20:00 16 /min Common [facility] blood pressure systolic 2021-11-10 16:20:00 160 mm[Hg] Common [facility] blood pressure diastolic 2021-11-10 16:20:00 89 mm[Hg] Common [facility] height 2021-08-05 08:00:00 68 [in_i] Commo n [facility] weight 2021-08-05 08:00:00 230 [lb_av] Comm on [facility] bmi 2021-08-05 08:00:00 34.97 kg/m2 Comm on [facility] blood pressure diastolic 2021-05-06 09:40:00 79 mm[Hg] Common [facility] height 2021-05-06 09:40:00 68 [in_i] Commo n [facility] weight 2021-05-06 09:40:00 249 [lb_av] Comm on [facility] temperature 2021-05-06 09:40:00 97.2 [degF] Com mon [facility] bmi 2021-05-06 09:40:00 37.86 kg/m2 Comm on [facility] oximetry 2021-05-06 09:40:00 97 % Commo n [facility] respiratory rate 2021-05-06 09:40:00 19 /min [facility] blood pressure systolic 2021-05-06 09:40:00 124 mm[Hg] [facility] Encounters Start Date/Time End Date/Time Encounter Type Admission Type Attending [facility] Care Department Encounter ID Source 2024-05-08 10:47:00 Outpatient Foster, Luis [facility] [id number] [facility] 2024-01-12 10:56:00 Outpatient Foster, Luis [facility] [id number] [facility] 2024-01-11 10:00:00 Outpatient Foster, Luis [facility] [id number] [facility] 2023-11-18 08:09:00 Outpatient Cristian Luis [facility] [id number] [facility] 2023-05-12 10:48:00 Outpatient Foster, Luis [facility] [id number] [facility] 2023-03-11 09:29:00 Outpatient Foster, Luis [facility] [id number] [facility] 2023-03-04 09:10:00 Outpatient Foster, Luis [facility] [id number] [facility] 2022-12-04 15:27:00 Outpatient Foster, Luis [facility] [id number] [facility] 2022-12-01 08:13:00 Outpatient Jose Foley [facility] [id number] [facility] 2022-11-16 09:22:01 Outpatient Maria D Ray [facility] [id number] [facility] 2022-09-14 17:01:00 Outpatient AGUILAR, Na [facility] [id number] [facility] 2022-06-25 15:59:01 Outpatient Aguilar, Na [facility] [id number] [facility] 2022-06-18 14:51:01 Outpatient Aguilar, Na [facility] [id number] [facility] 2022-06-02 09:00:00 Outpatient Aguilar, Na [facility] [id number] [facility] 2022-05-23 08:36:00 Outpatient Aguilar, Na [facility] [id number] [facility] 2022-03-09 08:04:00 Outpatient Aguilar, Na [facility] [id number] [facility] 2021-08-13 14:36:09 Outpatient Aguilar, Na [facility] [id number] [facility] 2021-08-13 13:27:39 Outpatient Aguilar, Na [facility] [id number] [facility] 2021-08-13 12:41:07 Outpatient Aguilar, Na [facility] [id number] [facility] 2021-08-13 12:36:07 Outpatient Aguilar, Na [facility] [id number] [facility] 2021-08-13 12:28:36 Outpatient Aguilar, Na [facility] [id number] [facility] 2021-08-13 12:13:50 Outpatient Aguilar, Na [facility] [id number] [facility] 2021-08-13 12:10:18 Outpatient Aguilar, Na [facility] [id number] [facility] 2021-08-13 12:07:30 Outpatient Aguilar, Na [facility] [id number] [facility] 2021-08-13 12:04:58 Outpatient Aguilar, Na [facility] [id number] [facility] 2021-08-13 11:37:36 Outpatient Aguilar, Na [facility] [id number] [facility] 2021-08-13 11:35:53 Outpatient Aguilar, Na [facility] [id number] [facility] 2021-08-13 11:18:10 Outpatient Aguilar, Na [facility] [id number] [facility] 2021-08-13 11:06:46 Outpatient Aguilar, Na [facility] [id number] [facility] 2021-08-13 11:06:07 Outpatient Aguilar, Na [facility] [id number] [facility] 2021-08-13 11:03:47 Outpatient Angeline Aguilar [facility] [id number] [facility] 2024-08-22 00:00:00 2024-08-22 00:00:00 OFFICE VISIT ESTAB PT LEVEL 4 [facility] [id number] [facility] 2024-05-10 00:00:00 2024-05-10 00:00:00 OFFICE VISIT ESTAB PT LEVEL 4 [facility] [id number] [facility] 2024-03-23 00:00:00 2024-03-23 00:00:00 (TEL) [facility] [id number] [facility] 2024-01-13 00:00:00 2024-01-13 00:00:00 PREV VISIT EST AGE 40-64 [facility] ST[facility] [id number] [facility] 2023-09-13 00:00:00 2023-09-13 00:00:00 OFFICE VISIT ESTAB PT LEVEL 4 [facility] ST[facility]C [id number] [facility] 2023-05-19 00:00:00 2023-05-19 00:00:00 (TEL) [facility]C [facility] [id number] [facility] 2023-05-16 00:00:00 2023-05-16 00:00:00 Outpatient GC_GCBZW_Ka barry_[facility] [id number] [facility] 2023-05-13 00:00:00 2023-05-13 00:00:00 PREV VISIT EST AGE 40-64 STLMLC STL[facility]C [id number] [facility] 2023-05-07 00:00:00 2023-05-07 00:00:00 (TEL) STLMLC STL[facility]C [id number] [facility] 2023-04-09 00:00:00 2023-04-09 00:00:00 (TEL) [facility]C [facility] [id number] [facility] 2023-04-08 00:00:00 2023-04-08 00:00:00 (TEL) [facility]C [facility] [id number] [facility] 2023-03-18 00:00:00 2023-03-18 00:00:00 (TEL) STLMLC ST[facility]C [id number] [facility] 2023-03-11 00:00:00 2023-03-11 00:00:00 (TEL) STLMLC ST[facility]C [id number] [facility] 2023-03-11 00:00:00 2023-03-11 00:00:00 OFFICE VISIT NEW PT LEVEL 3 [facility] ST[facility]C [id number] [facility] 2023-02-17 00:00:00 2023-02-17 00:00:00 (TEL) STLMLC ST[facility]C [id number] [facility] 2023-01-11 00:00:00 2023-01-11 00:00:00 OFFICE VISIT ESTAB PT LEVEL 4 [facility] ST[facility]C [id number] [facility] 2022-12-01 00:00:00 2022-12-01 00:00:00 (TEL) STLMLC STL[facility]C [id number] [facility] 2022-06-22 00:00:00 2022-06-22 00:00:00 OFFICE VISIT ESTAB PT LEVEL 4 [facility] ST[facility]C [id number] [facility] 2022-06-03 00:00:00 2022-06-03 00:00:00 NO CHARGE STLMLC STL[facility]C [id number] [facility] 2022-06-02 00:00:00 2022-06-02 00:00:00 OFFICE VISIT EST PT LEVEL 3 [facility] ST[facility]C [id number] [facility] 2022-06-02 00:00:00 2022-06-02 00:00:00 (TEL) STLMLC STLMLC [id number] [facility] 2022-06-01 00:00:00 2022-06-01 00:00:00 (TEL) STLMLC STLMLC [id number] [facility] 2022-05-12 00:00:00 2022-05-12 00:00:00 ([place]) Nurse Visit [facility]LMLC STL[facility]C [id number] [facility] 2022-05-11 00:00:00 2022-05-11 00:00:00 (TEL) STLMLC STLMLC [id number] [facility] 2022-05-11 00:00:00 2022-05-11 00:00:00 OFFICE VISIT EST PT LEVEL 3 [facility]C STL[facility]C [id number] [facility] 2022-03-11 00:00:00 2022-03-11 00:00:00 OFFICE VISIT ESTAB PT LEVEL 4 [facility]C STL[facility]C [id number] [facility] 2021-11-10 00:00:00 2021-11-10 00:00:00 PREV VISIT EST AGE 40-64 STLMLC STL[facility]C [id number] [facility] 2021-08-05 00:00:00 2021-08-05 00:00:00 OFFICE VISIT ESTAB PT LEVEL 4 [facility] ST[facility]C [id number] [facility] 2021-06-03 00:00:00 2021-06-03 00:00:00 OFFICE VISIT EST PT LEVEL 3 [facility] ST[facility]C [id number] [facility] 2021-06-02 00:00:00 2021-06-02 00:00:00 (TEL) STLMLC STLMLC [id number] [facility] 2021-05-06 00:00:00 2021-05-06 00:00:00 OFFICE VISIT ESTAB PT LEVEL 4 [facility] ST[facility]C [id number] [facility] 2021-03-11 00:00:00 2021-03-11 00:00:00 (TEL) STLMLC STL[facility]C [id number] [facility] 2021-02-04 00:00:00 2021-02-04 00:00:00 Outpatient [facility] [id number] [facility] 2020-10-09 00:00:00 2020-10-09 00:00:00 Outpatient [facility] [id number] [facility] 2020-07-26 00:00:00 2020-07-26 00:00:00 Outpatient [facility] [id number] [facility] 2020-07-03 00:00:00 2020-07-03 00:00:00 Outpatient [facility] [id number] [facility] 2020-06-24 00:00:00 2020-06-24 00:00:00 Outpatient [facility]C [facility] [id number] [facility] 2020-06-04 00:00:00 2020-06-04 00:00:00 Outpatient [facility]C ST[facility] [id number] [facility] 2020-04-03 10:35:00 2020-04-03 10:35:[address] [facility] [id number] [facility] 2020-03-04 14:40:00 2020-03-04 14:40:[address] [facility] [id number] [facility] 2019-12-26 10:20:00 2019-12-26 10:20:[address] [facility] [id number] [facility] 2019-11-27 08:40:00 2019-11-27 08:40:[address] [facility] [id number] [facility] 2019-08-28 14:20:00 2019-08-28 14:20:[address] [facility] [facility] [id number] [facility] 2019-08-15 13:20:00 2019-08-15 13:20:[address] [facility] [facility] [id number] [facility] 2019-04-12 09:00:00 2019-04-12 09:00:[address] [facility] [facility] [id number] [facility] 2019-03-21 16:23:00 2019-03-21 16:23:[address] [facility] [facility] [id number] [facility] 2019-01-03 10:00:00 2019-01-03 10:00:00 [facility] [id number] [facility] 2018-12-19 10:00:00 2018-12-19 10:00:[address] [facility] [id number] [facility] 2018-09-12 16:54:00 2018-09-12 16:54:[address] [facility] [id number] [facility] 2018-08-15 15:45:00 2018-08-15 15:45:[address] [facility] [id number] [facility] 2018-04-19 16:20:00 2018-04-19 16:20:[address] [facility] [id number] [facility] 2018-04-01 08:30:00 2018-04-01 08:30:[address] [facility] [id number] [facility] 2017-10-05 10:15:00 2017-10-05 10:15:[address] [facility] [id number] [facility] Results Test Description Test Time Test Comments Results Result Co mments Source COMPREHENSIVE METABOLIC [id number] 00:00:00* Test Item Value Reference Range Interpretation Comme nts NUCLEATED RBCS (test code = 13970-1) 0.0 /100 WBC'S See_Comment [Automated message] The system which generated this result transmitted reference range: 0.0 /100 WBC'S. The reference range was not used to interpret this result as normal/abnormal. ABSOLUTE EOSINOPHILS (test code = 10258-8) 0.22 K/UL See_Comment [Automated message] The system which generated this result transmitted reference range: 0.00-0.50 K/UL. The reference range was not used to interpret this result as normal/abnormal. ABSOLUTE LYMPHOCYTES (test code = 41045-3) 1.97 K/UL See_Comment [Automated message] The system which generated this result transmitted reference range: 1.00-4.00 K/UL. The reference range was not used to interpret this result as normal/abnormal. ABSOLUTE MONOCYTES (test code = 93293-8) 0.56 K/UL See_Comment [Automated message] The system which generated this result transmitted reference range: 0.20-1.00 K/UL. The reference range was not used to interpret this result as normal/abnormal. ABSOLUTE NEUTROPHILS (test code = 44590-0) 5.71 K/UL See_Comment [Automated message] The system which generated this result transmitted reference range: 1.50-7.50 K/UL. The reference range was not used to interpret this result as normal/abnormal. BASOPHILS (test code = 23683-0) 0.7 % EOSINOPHILS (test code = 20887-7) 2.6 % HEMATOCRIT (test code = 56865-5) 40.3 % See_Comment [Automated message] The system which generated this result transmitted reference range: 34.0-45.0 %. The reference range was not used to interpret this result as normal/abnormal. HEMOGLOBIN (test code = 718-7) 13.3 G/DL See_Comment [Automated message] The system which generated this result transmitted reference range: 11.5-15.5 G/DL. The reference range was not used to interpret this result as normal/abnormal. LYMPHOCYTES (test code = 38482-3) 23.0 % MCH (test code = 65742-1) 30.2 PG See_Comment [Automated message] The system which generated this result transmitted reference range: 25.0-33.0 PG. The reference range was not used to interpret this result as normal/abnormal. MCHC (test code = 14132-3) 33.0 G/DL See_Comment [Automated message] The system which generated this result transmitted reference range: 31.0-36.0 G/DL. The reference range was not used to interpret this result as normal/abnormal. MCV (test code = 51457-8) 91.4 fL See_Comment [Automated message] The system which generated this result transmitted reference range: 80.0-99.0 fL. The reference range was not used to interpret this result as normal/abnormal. MONOCYTES (test code = 17018-2) 6.5 % NEUTROPHILS (test code = 14559-8) 66.7 % PLATELET COUNT (test code = 87633-1) 262 K/UL See_Comment [Automated message] The system which generated this result transmitted reference range: 130-400 K/UL. The reference range was not used to interpret this result as normal/abnormal. RBC (test code = 25172-3) 4.41 M/UL See_Comment [Automated message] The system which generated this result transmitted reference range: 3.80-5.40 M/UL. The reference range was not used to interpret this result as normal/abnormal. RDW (test code = 76668-7) 11.7 % See_Comment [Automated message] The system which generated this result transmitted reference range: 11.5-15.0 %. The reference range was not used to interpret this result as normal/abnormal. WBC (test code = 47287-1) 8.6 K/UL See_Comment [Automated message] The system which generated this result transmitted reference range: 3.5-11.0 K/UL. The reference range was not used to interpret this result as normal/abnormal. URIC ACID (test code = 2501-5) 5.5 MG/DL See_Comment [Automated message] The system which generated this result transmitted reference range: 2.7-6.1 MG/DL. The reference range was not used to interpret this result as normal/abnormal. HEMOGLOBIN A1c (test code = 4548-4) 5.9 % See_Comment H [Automated message] The system which generated this result transmitted reference range: 4.2-5.6 %. The reference range was not used to interpret this result as normal/abnormal. TSH REFLEX TO FREE T4 (test code = 16913-3) 2.590 UIU/ML See_Comment [Automated message] The system which generated this result transmitted reference range: 0.400-4.100 UIU/ML. The reference range was not used to interpret this result as normal/abnormal. APPEARANCE (test code = 5767-9) CLOUDY CLEAR A BACTERIA (test code = 13192-3) NONE SEEN NONE SEEN BILIRUBIN (test code = 5770-3) NEGATIVE NEGATIVE CASTS, HYALINE (test code = 17686-1) NONE SEEN NONE-TRACE COLOR (test code = 5778-6) DARK YELLOW YELLOW-STRAW A EPITHELIAL CELLS (test code = 79473-6) 0-5 /HPF See_Comment [Automated message] The system which generated this result transmitted reference range: 0-10 /HPF. The reference range was not used to interpret this result as normal/abnormal. GLUCOSE (test code = 5792-7) NEGATIVE NEGATIVE KETONES (test code = 5797-6) TRACE NEGATIVE A LEUKOCYTE ESTERASE (test code = 5799-2) NEGATIVE NEGATIVE NITRITE (test code = 5802-4) NEGATIVE NEGATIVE OCCULT BLOOD (test code = 57055-6) NEGATIVE NEGATIVE pH (test code = 5803-2) 5.5 5.0-9.0 PROTEIN (test code = 68791-4) 1+ NEGATIVE A RED BLOOD CELLS (test code = 57408-1) 0-2 /HPF See_Comment [Automated message] The system which generated this result transmitted reference range: 0-2 /HPF. The reference range was not used to interpret this result as normal/abnormal. SPECIFIC GRAVITY (test code = 5811-5) 1.024 1.005-1.035 UROBILINOGEN (test code = 04667-3) 1.0 MG/DL See_Comment [Automated message] The system which generated this result transmitted reference range: <=2.0 MG/DL. The reference range was not used to interpret this result as normal/abnormal. WHITE BLOOD CELLS (test code = 94138-3) 0-5 /HPF See_Comment [Automated message] The system which generated this result transmitted reference range: 0-5 /HPF. The reference range was not used to interpret this result as normal/abnormal. CALC LDL CHOL (test code = 38277-4) 81 MG/DL See_Comment [Automated message] The system which generated this result transmitted reference range: <100 MG/DL. The reference range was not used to interpret this result as normal/abnormal. CHOLESTEROL (test code = 2093-3) 139 MG/DL See_Comment [Automated message] The system which generated this result transmitted reference range: <200 MG/DL. The reference range was not used to interpret this result as normal/abnormal. HDL CHOLESTEROL (test code = 2085-9) 40 MG/DL See_Comment [Automated message] The system which generated this result transmitted reference range: >39 MG/DL. The reference range was not used to interpret this result as normal/abnormal. RISK RATIO LDL/HDL (test code = 48970-2) 2.03 RATIO See_Comment [Automated message] The system which generated this result transmitted reference range: <3.22 RATIO. The reference range was not used to interpret this result as normal/abnormal. TRIGLYCERIDES (test code = 2571-8) 92 MG/DL See_Comment [Automated message] The system which generated this result transmitted reference range: <150 MG/DL. The reference range was not used to interpret this result as normal/abnormal. ALBUMIN (test code = 1751-7) 4.2 G/DL See_Comment [Automated message] The system which generated this result transmitted reference range: 3.5-5.2 G/DL. The reference range was not used to interpret this result as normal/abnormal. ALKALINE PHOSPHATASE (test code = 6768-6) 96 U/L See_Comment [Automated message] The system which generated this result transmitted reference range: 40-140 U/L. The reference range was not used to interpret this result as normal/abnormal. BILIRUBIN, TOTAL (test code = 1975-2) 0.8 MG/DL See_Comment [Automated message] The system which generated this result transmitted reference range: <=1.2 MG/DL. The reference range was not used to interpret this result as normal/abnormal. BUN (test code = 3094-0) 14 MG/DL See_Comment [Automated message] The system which generated this result transmitted reference range: 8-23 MG/DL. The reference range was not used to interpret this result as normal/abnormal. CALCIUM (test code = 22621-8) 9.3 MG/DL See_Comment [Automated message] The system which generated this result transmitted reference range: 8.5-10.5 MG/DL. The reference range was not used to interpret this result as normal/abnormal. CALC A/G RATIO (test code = 1759-0) 1.4 RATIO See_Comment [Automated message] The system which generated this result transmitted reference range: 1.0-2.6 RATIO. The reference range was not used to interpret this result as normal/abnormal. CALC BUN/CREAT (test code = 3097-3) 15 RATIO See_Comment [Automated message] The system which generated this result transmitted reference range: 6-28 RATIO. The reference range was not used to interpret this result as normal/abnormal. CALC GLOBULIN (test code = 21982-5) 3.0 G/DL See_Comment [Automated message] The system which generated this result transmitted reference range: 1.9-3.7 G/DL. The reference range was not used to interpret this result as normal/abnormal. CARBON DIOXIDE (test code = 1963-8) 28 MEQ/L See_Comment [Automated message] The system which generated this result transmitted reference range: 19-31 MEQ/L. The reference range was not used to interpret this result as normal/abnormal. CHLORIDE (test code = 2075-0) 103 MEQ/L See_Comment [Automated message] The system which generated this result transmitted reference range: 95-107 MEQ/L. The reference range was not used to interpret this result as normal/abnormal. CREATININE (test code = 2160-0) 0.95 MG/DL See_Comment [Automated message] The system which generated this result transmitted reference range: 0.60-1.30 MG/DL. The reference range was not used to interpret this result as normal/abnormal. eGFR (2020 CKD-EPI) (test code = 67028-3) 67 ML/MIN/1.73 See_Comment [Automated message] The system which generated this result transmitted reference range: >60 ML/MIN/1.73. The reference range was not used to interpret this result as normal/abnormal. GLUCOSE (test code = 1558-6) 94 MG/DL See_Comment [Automated message] The system which generated this result transmitted reference range: 70-99 MG/DL. The reference range was not used to interpret this result as normal/abnormal. POTASSIUM (test code = 2823-3) 4.2 MEQ/L See_Comment [Automated message] The system which generated this result transmitted reference range: 3.5-5.4 MEQ/L. The reference range was not used to interpret this result as normal/abnormal. PROTEIN, TOTAL (test code = 2885-2) 7.2 G/DL See_Comment [Automated message] The system which generated this result transmitted reference range: 6.1-8.3 G/DL. The reference range was not used to interpret this result as normal/abnormal. AST (test code = 1920-8) 24 U/L See_Comment [Automated message] The system which generated this result transmitted reference range: 9-40 U/L. The reference range was not used to interpret this result as normal/abnormal. ALT (test code = 1742-6) 24 U/L See_Comment [Automated message] The system which generated this result transmitted reference range: 5-40 U/L. The reference range was not used to interpret this result as normal/abnormal. SODIUM (test code = 2951-2) 142 MEQ/L See_Comment [Automated message] The system which generated this result transmitted reference range: 133-146 MEQ/L. The reference range was not used to interpret this result as normal/abnormal. HEMOGLOBIN [id number] 00:00:00* Test Item Value Reference Range Interpretation Comme nts HEMOGLOBIN A1c (test code = 4548-4) 5.8 % See_Comment H [Automated messa ge] The system which generated this result transmitted reference range: 4.2-5.6 %. The reference range was not used to interpret this result as normal/abnormal. CBC W/AUTO [id number] 00:00:00* Test Item Value Reference Range Interpretation Comme nts NUCLEATED RBCS (test code = 65993-0) 0.0 /100 WBC'S See_Comment [Automated messa ge] The system which generated this result transmitted reference range: 0.0 /100 WBC'S. The reference range was not used to interpret this result as normal/abnormal. ABSOLUTE EOSINOPHILS (test code = 59029-6) 0.13 K/UL See_Comment [Automated messa ge] The system which generated this result transmitted reference range: 0.00-0.50 K/UL. The reference range was not used to interpret this result as normal/abnormal. ABSOLUTE LYMPHOCYTES (test code = 14786-6) 1.82 K/UL See_Comment [Automated messa ge] The system which generated this result transmitted reference range: 1.00-4.00 K/UL. The reference range was not used to interpret this result as normal/abnormal. ABSOLUTE MONOCYTES (test code = 17793-5) 0.46 K/UL See_Comment [Automated messa ge] The system which generated this result transmitted reference range: 0.20-1.00 K/UL. The reference range was not used to interpret this result as normal/abnormal. ABSOLUTE NEUTROPHILS (test code = 78309-8) 5.25 K/UL See_Comment [Automated messa ge] The system which generated this result transmitted reference range: 1.50-7.50 K/UL. The reference range was not used to interpret this result as normal/abnormal. BASOPHILS (test code = 03720-4) 0.8 % EOSINOPHILS (test code = 27557-5) 1.7 % HEMATOCRIT (test code = 98777-2) 42.9 % See_Comment [Automated messa ge] The [...] result as normal/abnormal. LYMPHOCYTES (test code = 79776-0) 23.5 % MCH (test code = 21677-0) 30.8 PG See_Comment [Automated messa ge] The system which generated this result transmitted reference range: 25.0-33.0 PG. The reference range was not used to interpret this result as normal/abnormal. MCHC (test code = 15422-7) 33.3 G/DL See_Comment [Automated messa ge] The system which generated this result transmitted reference range: 31.0-36.0 G/DL. The reference range was not used to interpret this result as normal/abnormal. MCV (test code = 93328-7) 92.3 fL See_Comment [Automated messa ge] The system which generated this result transmitted reference range: 80.0-99.0 fL. The reference range was not used to interpret this result as normal/abnormal. MONOCYTES (test code = 26875-0) 5.9 % NEUTROPHILS (test code = 74453-4) 67.8 % PLATELET COUNT (test code = 03667-9) 253 K/UL See_Comment [Automated Doutíssimaa Mimoona] The system which generated this result transmitted reference range: 130-400 K/UL. The reference range was not used to interpret this result as normal/abnormal. RBC (test code = 80527-0) 4.65 M/UL See_Comment [Automated Doutíssimaa Mimoona] The system which generated this result transmitted reference range: 3.80-5.40 M/UL. The reference range was not used to interpret this result as normal/abnormal. RDW (test code = 36454-1) 12.1 % See_Comment [Automated Doutíssimaa Mimoona] The system which generated this result transmitted reference range: 11.5-15.0 %. The reference range was not used to interpret this result as normal/abnormal. WBC (test code = 19502-4) 7.7 K/UL See_Comment [Automated Doutíssimaa Mimoona] The system which generated this result transmitted reference range: 3.5-11.0 K/UL. The reference range was not used to interpret this result as normal/abnormal. 3D SCR GIO BILAT W/CAD3D SCR GIO BILAT W/CADPOC, COVID 19 Antigen + Flu by Mitra POC, COVID 19 Antigen + Flu by SofiaSARS-COV 2 AntigenSARS-COV 2 Antigen
--- NOTE | 2024-09-27 12:20 | ER ---
Nurse's Notes [facility] Name: Ricky Nash Age: 64 yrs Sex: Female : 1960 Arrival Date: 09/27/2024 Time: 11:47 Bed IW1 Private MD: Diagnosis: Acute pharyngitis, unspecified;Acute lymphadenitis of face, head and neck Presentation: 09/27 12:09 Chief complaint: Patient states: Sore throat last night, woke up this morning w/ pain ph and swelling in R ear and jaw, denies fever. Coronavirus screen: Vaccine status: Patient reports receiving the 2nd dose of the covid vaccine. Ebola Screen: No symptoms or risks identified at this time. Initial Sepsis Screen: Does the patient meet any 2 criteria? No. Patient's initial sepsis screen is negative. Does the patient have a suspected source of infection? No. Patient's initial sepsis screen is negative. Risk Assessment: Do you want to hurt yourself or someone else? Patient reports no desire to harm self or others. Onset of symptoms was September 27, 2024. 12:09 Method Of Arrival: Ambulatory ph 12:09 Acuity: MANOJ 4 ph Triage Assessment: 12:18 General: Appears in no apparent distress. Behavior is calm, cooperative, Denies fever. ph Pain: Complains of pain in right ear and throat. EENT: Reports pain in right ear and right jaw when swallowing. Neuro: Level of Consciousness is awake, alert, obeys commands, Oriented to person, place, time, situation. Cardiovascular: Capillary refill < 3 seconds in bilateral fingers Patient's skin is warm and dry. Respiratory: Airway is patent Respiratory effort is even, unlabored. Musculoskeletal: Circulation, motion, and sensation intact. Range of motion: intact in all extremities. Historical: - Allergies: 12:12 NKA; ph - PMHx: 12:12 Depression; Hyperlipidemia; Hypertension; ph - PSHx: 12:12 Total abdominal hysterectomy; ph - Immunization history:: Adult Immunizations unknown. - Infectious Disease History:: Denies. - Social history:: Smoking status: Patient denies any tobacco usage or history of. - Family history:: not pertinent. - Hospitalizations: : No recent hospitalization is reported. Screenin:19 [facility] ED Fall Risk Assessment (Adult) History of falling in the last 3 months, ph including since admission No falls in past 3 months (0 pts) Confusion or Disorientation No (0 pts) Intoxicated or Sedated No (0 pts) Impaired Gait No (0 pts) Mobility Assist Device Used No (0 pt) Altered Elimination No (0 pt) Score/Fall Risk Level 0 - 2 = Low Risk Oriented to surroundings, Maintained a safe environment. Abuse screen: Denies threats or abuse. Denies injuries from another. Nutritional screening: No deficits noted. Tuberculosis screening: No symptoms or risk factors identified. Vital Signs: 12:09 BP 153 / 90; Pulse 76; Resp 18; Temp 98.4; Pulse Ox 99% on R/A; Weight 117.93 kg; ph Height 5 ft. 9 in. ; 12:09 Body Mass Index 38.39 (117.93 kg, 175.26 cm) ph ED Course: 11:50 Patient arrived in ED. mr 11:51 Chava Rojo MD is Attending Physician. rn 12:12 Triage completed. ph 12:12 Arm band placed on Patient placed in waiting room, Patient notified of wait time. ph 12:17 Cher Alberto, RN is Primary Nurse. ph 12:23 Patient has correct armband on for positive identification. ph 12:24 No provider procedures requiring assistance completed. Patient did not have IV access ph during this emergency room visit. Administered Medications: No medications were administered Medication: 12:23 VIS not applicable for this client. ph Outcome: 12:20 Discharge ordered by . rn 12:24 Discharged to home ambulatory, ph 12:24 Condition: good 12:24 Discharge instructions given to patient, Instructed on discharge instructions, follow up and referral plans. medication usage, Demonstrated understanding of instructions, follow-up care, medications, Prescriptions given X 1, 12:24 Patient left the ED. ph Signatures: Tiffanie Garcia, Reg Reg mr Chava Rojo MD MD rn Hall, Patricia, RN RN
--- NOTE | 2024-09-27 12:20 | EDPHYS ---
Physician Documentation [facility] Name: Ricky Nash Age: 64 yrs Sex: Female : 1960 Arrival Date: 09/27/2024 Time: 11:47 Bed IW1 Private MD: ED Physician Chava Rojo HPI: 09/27 12:14 This 64 yrs old Black Female presents to ER via Ambulatory with complaints of Sore rn Throat. 12:14 The patient presents with sore throat. Onset: The symptoms/episode began/occurred rn yesterday. Severity of symptoms: At their worst the symptoms were mild, in the emergency department the symptoms are unchanged. The patient has not experienced similar symptoms in the past. Patient reports sore throat and feeling sick for the last 2 days. No fever or chills. Reports pain starts in throat and radiates towards the right ear with postauricular pain and subjective swelling. No shortness of breath or cough. No chest pain. No vomiting or diarrhea. No difficulty swallowing or breathing.. Historical: - Allergies: 12:12 NKA; ph - PMHx: 12:12 Depression; Hyperlipidemia; Hypertension; ph - PSHx: 12:12 Total abdominal hysterectomy; ph - Immunization history:: Adult Immunizations unknown. - Infectious Disease History:: Denies. - Social history:: Smoking status: Patient denies any tobacco usage or history of. - Family history:: not pertinent. - Hospitalizations: : No recent hospitalization is reported. ROS: 12:14 Constitutional: Negative for fever, chills, and weight loss, ENT: Positive for sore rn throat and right auricular pain Cardiovascular: Negative for chest pain, palpitations, and edema, Respiratory: Negative for shortness of breath, cough, wheezing, and pleuritic chest pain, Abdomen/GI: Negative for abdominal pain, nausea, vomiting, diarrhea, and constipation, Skin: Negative for rash or lesions Neuro: Negative for headache, weakness, numbness, tingling, and seizure, Exam: 12:14 Constitutional: This is a well developed, well nourished patient who is awake, alert, rn and in no acute distress. Head/Face: Normocephalic, atraumatic. ENT: Mild pharyngeal erythema, no stridor, no exudate Neck: No meningismus. Nontender cervical lymphadenopathy. Tender lymphadenopathy right postauricular region. No skin changes of the ear itself. Respiratory: No increased work of breathing, no retractions or nasal flaring. Neuro: Awake and alert, GCS 15 Vital Signs: 12:09 BP 153 / 90; Pulse 76; Resp 18; Temp 98.4; Pulse Ox 99% on R/A; Weight 117.93 kg; ph Height 5 ft. 9 in. ; 12:09 Body Mass Index 38.39 (117.93 kg, 175.26 cm) ph MDM: 11:51 Medical Screening Exam initiated rn 12:14 Differential diagnosis: pharyngitis. rn 12:20 Data reviewed: vital signs, nurses notes, and as a result, I will discharge patient. rn Counseling: I had a detailed discussion with the patient and/or guardian regarding the historical points, exam findings, and any diagnostic results supporting the discharge/admit diagnosis, the need for outpatient follow up, to return to the emergency department if symptoms worsen or persist or if there are any questions or concerns that arise at home. Special discussion: I discussed with the patient/guardian in detail that at this point there is no indication for admission to the hospital. It is understood, however, that if the symptoms persist or worsen the patient needs to return immediately for re-evaluation. 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 Head/Face: Normocephalic, atraumatic. ENT: Mild pharyngeal erythema, no stridor, no exudate Neck: No meningismus. Nontender cervical lymphadenopathy. Tender lymphadenopathy right postauricular region. No skin changes of the ear itself. Respiratory: No increased work of breathing, no retractions or nasal flaring. rn
[2024-09-27 12:28] VITALS: BP 153/90; TEMP 98.4; O2SAT 99
== END 2024-09-27 12:24 | disposition home or self-care (01) ==
LOC: ER 11:47
DX: J02.9 Acute pharyngitis, unspecified (principal); L04.0 Acute lymphadenitis of face, head and neck
CPT/HCPCS: 99283

== ENCOUNTER 2024-11-14 12:45 | Emergency (ER) | payer BC, OTHER ==
--- OUTSIDE RECORDS SUMMARY | 2024-11-14 12:50 | XMS REPORT | Continuity of Care Document ---
Author Name Unknown Address [address] [place] [address] Organization [facility] [place] Address [address] [place] [address] Care Team Providers Care Stoker Installer Name Role Phone Luis Foster Attending Clinician Unavailable Jose Foley Attending Clinician Unavailable Maria D Ray Attending Clinician Unavailable Angeline AGUILAR Attending Clinician Unavailable GC_GCBZW_Kadiyala_S Attending Clinician Unavaila ble GC_GCBZW_Kadiyala_S Admitting Clinician Unavaila ble Payers Payer Name Policy Type Policy Number Effective Date Expirati on Date Source [facility] 6 [id number] 2021 00:00:00 [place] [address] [id number] [facility] AETNA C1 [id number] [facility] Problems Condition Name Condition Details Condition Category Status Onset Date Resolution Date Last Treatment Date Treating Clinician Comments Source Allergic rhinitis Allergic rhinitis, unspecifie d seasonalit y, unspecifie d trigger Problem [facility] Hypertensi on HTN (hypertens ion) Problem [facility] Depression Depression Problem [facility] Vitamin D deficiency Vitamin D deficiency Problem [facility] [id number] Unspecifie d injury of left lower leg, initial encounter Problem [facility] [id number] Severe obesity (BMI >= 40) Problem [facility] [id number] Morbid (severe) obesity due to excess calories Problem [facility] [id number] Adult general medical exam Problem [facility] Seasonal allergic rhinitis Seasonal allergic rhinitis, unspecifie d trigger Problem [facility] Hyperlipid emia Hyperlipid emia Problem [facility] Pure hyperchole sterolemia Pure hyperchole sterolemia Problem [facility] History of polyp of colon History of colon polyps Problem [facility] Circadian rhythm sleep disorder of shift work type Shifting sleep-work schedule Problem [facility] Social History Social Habit Start Date Stop Date Quantity Comments Source History of Tobacco Use [facility] Sex Assigned At [facility] Smoking Status Start Date Stop Date Source Never Smoker [facility] Medications Ordered Medication Name Filled Medication Name Start Date Stop Date Current Medication? Ordering Clinician Indication Dosage Frequency Signature (SIG) Comments Components Source metFORMIN HCl ER 750 MG metFORMIN HCl ER 750 MG 2022-07 0-26 00:00: 00 No 1{table t_with_ evening _meal} QD metFORMIN HCl ER 750 MG Kenalog (Triamcinol one) Kenalog (Triamcinol one) 9-14 00:00: 00 No 40mg [facility] Crestor 10 MG Crestor 10 MG No [...] height 2024-08-22 08:15:00 68 [in_i] [facility] weight 2024-08-22 08:15:00 271.6 [lb_av] [facility] temperature 2024-08-22 08:15:00 97.3 [degF] Com [facility] bmi 2024-08-22 08:15:00 41.29 kg/m2 Comm [facility] oximetry 2024-08-22 08:15:00 96 % [facility] respiratory rate 2024-08-22 08:15:00 17 /min [facility] blood pressure systolic 2024-08-22 08:15:00 127 mm[Hg] Common [facility] blood pressure diastolic 2024-08-22 08:15:00 82 mm[Hg] Common [facility] height 2024-05-10 08:15:00 68 [in_i] [facility] weight 2024-05-10 08:15:00 271 [lb_av] Comm on [facility] temperature 2024-05-10 08:15:00 95 [degF] Comm on [facility] bmi 2024-05-10 08:15:00 41.2 kg/m2 [facility] oximetry 2024-05-10 08:15:00 97 % [facility] respiratory rate 2024-05-10 08:15:00 16 /min [facility] blood pressure systolic 2024-05-10 08:15:00 138 mm[Hg] Common [facility] blood pressure diastolic 2024-05-10 08:15:00 77 mm[Hg] Common [facility] height 2024-05-10 08:15:00 68 [in_i] [facility] weight 2024-05-10 08:15:00 271 [lb_av] Comm on [facility] temperature 2024-05-10 08:15:00 95 [degF] Comm on [facility] bmi 2024-05-10 08:15:00 41.2 kg/m2 [facility] oximetry 2024-05-10 08:15:00 97 % [facility] respiratory rate 2024-05-10 08:15:00 16 /min Common [facility] blood pressure systolic 2024-05-10 08:15:00 138 mm[Hg] Common [facility] blood pressure diastolic 2024-05-10 08:15:00 77 mm[Hg] Common [facility] height 2024-01-13 08:40:00 68 [in_i] [facility] weight 2024-01-13 08:40:00 269.2 [lb_av] [facility] temperature 2024-01-13 08:40:00 97.3 [degF] Com [facility] bmi 2024-01-13 08:40:00 40.93 kg/m2 Comm on [facility] oximetry 2024-01-13 08:40:00 97 % [facility] blood pressure systolic 2024-01-13 08:40:00 134 mm[Hg] [facility] blood pressure diastolic 2024-01-13 08:40:00 78 mm[Hg] [facility] height 2023-09-13 08:20:00 68 [in_i] [facility] weight 2023-09-13 08:20:00 268 [lb_av] Comm [facility] temperature 2023-09-13 08:20:00 97.1 [degF] Com [facility] bmi 2023-09-13 08:20:00 40.74 kg/m2 Comm on [facility] oximetry 2023-09-13 08:20:00 97 % [facility] blood pressure systolic 2023-09-13 08:20:00 134 mm[Hg] [facility] blood pressure diastolic 2023-09-13 08:20:00 78 mm[Hg] [facility] height 2023-09-13 08:20:00 68 [in_i] [facility] weight 2023-09-13 08:20:00 268 [lb_av] Comm [facility] temperature 2023-09-13 08:20:00 97.1 [degF] Com [facility] bmi 2023-09-13 08:20:00 40.74 kg/m2 Comm [facility] oximetry 2023-09-13 08:20:00 97 % [facility] blood pressure systolic 2023-09-13 08:20:00 134 mm[Hg] [facility] blood pressure diastolic 2023-09-13 08:20:00 78 mm[Hg] [facility] height 2023-05-13 08:30:00 68 [in_i] [facility] weight 2023-05-13 08:30:00 273.0 [lb_av] [facility] temperature 2023-05-13 08:30:00 98.5 [degF] Com [facility] bmi 2023-05-13 08:30:00 41.5 kg/m2 [facility] oximetry 2023-05-13 08:30:00 97 % [facility] respiratory rate 2023-05-13 08:30:00 17 /min [facility] blood pressure systolic 2023-05-13 08:30:00 123 mm[Hg] Common [facility] blood pressure diastolic 2023-05-13 08:30:00 71 mm[Hg] [facility] height 2023-03-11 08:00:00 68 [in_i] [facility] weight 2023-03-11 08:00:00 272 [lb_av] Comm [facility] temperature 2023-03-11 08:00:00 98.2 [degF] Com [facility] bmi 2023-03-11 08:00:00 41.35 kg/m2 [facility] blood pressure systolic 2023-03-11 08:00:00 138 mm[Hg] Common [facility] blood pressure diastolic 2023-03-11 08:00:00 78 mm[Hg] [facility] height 2023-01-11 13:20:00 68 [in_i] [facility] weight 2023-01-11 13:20:00 264.2 [lb_av] [facility] temperature 2023-01-11 13:20:00 98.0 [degF] Com [facility] bmi 2023-01-11 13:20:00 40.17 kg/m2 Comm [facility] oximetry 2023-01-11 13:20:00 97 % [facility] respiratory rate 2023-01-11 13:20:00 17 /min [facility] blood pressure systolic 2023-01-11 13:20:00 134 mm[Hg] [facility] blood pressure diastolic 2023-01-11 13:20:00 77 mm[Hg] [facility] height 2022-06-22 09:00:00 68 [in_i] [facility] weight 2022-06-22 09:00:00 266.0 [lb_av] [facility] temperature 2022-06-22 09:00:00 97.6 [degF] Com [facility] bmi 2022-06-22 09:00:00 40.44 kg/m2 Comm [facility] oximetry 2022-06-22 09:00:00 95 % [facility] respiratory rate 2022-06-22 09:00:00 16 /min [facility] blood pressure systolic 2022-06-22 09:00:00 134 mm[Hg] Common [facility] blood pressure diastolic 2022-06-22 09:00:00 72 mm[Hg] [facility] height 2022-03-11 10:00:00 68 [in_i] [facility] weight 2022-03-11 10:00:00 240 [lb_av] Comm on [facility] bmi 2022-03-11 10:00:00 36.49 kg/m2 Comm [facility] height 2021-11-10 16:20:00 68 [in_i] [facility] weight 2021-11-10 16:20:00 253.6 [lb_av] [facility] temperature 2021-11-10 16:20:00 97.8 [degF] Com [facility] bmi 2021-11-10 16:20:00 38.56 kg/m2 Comm [facility] oximetry 2021-11-10 16:20:00 95 % [facility] respiratory rate 2021-11-10 16:20:00 16 /min [facility] blood pressure systolic 2021-11-10 16:20:00 160 mm[Hg] Common [facility] blood pressure diastolic 2021-11-10 16:20:00 89 mm[Hg] Common [facility] height 2021-08-05 08:00:00 68 [in_i] [facility] weight 2021-08-05 08:00:00 230 [lb_av] Comm [facility] bmi 2021-08-05 08:00:00 34.97 kg/m2 Comm [facility] blood pressure diastolic 2021-05-06 09:40:00 79 mm[Hg] Common [facility] height 2021-05-06 09:40:00 68 [in_i] [facility] weight 2021-05-06 09:40:00 249 [lb_av] Comm [facility] temperature 2021-05-06 09:40:00 97.2 [degF] Com [facility] bmi 2021-05-06 09:40:00 37.86 kg/m2 Comm [facility] oximetry 2021-05-06 09:40:00 97 % [facility] respiratory rate 2021-05-06 09:40:00 19 /min [facility] blood pressure systolic 2021-05-06 09:40:00 124 mm[Hg] [facility] Encounters Start Date/Time End Date/Time Encounter Type Admission Type Attending [facility] Care Facility Care Department Encounter ID Source 2024-05-08 10:47[id number] 2024-01-12 10:56[facility]00 [id number] [facility] 2024-01-11 10:00:00 [facility] [id number] [facility] 2023-11-18 08:09:00 [facility] [id number] [facility] 2023-05-12 10:48:00 Outpatient Foster, Luis [facility] [id number] [facility] 2023-03-11 09:29:00 Outpatient Foster, Luis [facility] [id number] [facility] 2023-03-04 09:10:00 Outpatient Foster, Luis [facility] [id number] [facility] 2022-12-04 15:27:00 Outpatient Foster, Luis [facility] [id number] [facility] 2022-12-01 08:13:00 Outpatient Jose Foley [facility] ST[facility] [id number] [facility] 2022-11-16 09:22:01 Outpatient Maria D Ray [facility]C ST[facility] [id number] [facility] 2022-09-14 17:01:00 Outpatient AGUILAR, Na [facility]C ST[facility]C [id number] [facility] 2022-06-25 15:59:01 Outpatient Aguilar, Na [facility]C ST[facility]C [id number] [facility] 2022-06-18 14:51:01 Outpatient Aguilar, Na [facility]C ST[facility] [id number] [facility] 2022-06-02 09:00:00 Outpatient Aguilar, Na [facility]C ST[facility]C [id number] [facility] 2022-05-23 08:36:00 Outpatient Aguilar, Na [facility]C ST[facility] [id number] [facility] 2022-03-09 08:04:00 Outpatient Aguilar, Na [facility]C ST[facility]C [id number] [facility] 2021-08-13 14:36:09 Outpatient Aguilar, Na [facility] [id number] [facility] 2021-08-13 13:27:39 Outpatient Aguilar, Na [facility] [id number] [facility] 2021-08-13 12:41:07 Outpatient Aguilar, Na [facility] [id number] [facility] 2021-08-13 12:36:07 Outpatient Aguilar, Na [facility]C [facility] [id number] [facility] 2021-08-13 12:28:36 Outpatient Aguilar, Na [facility]C ST[facility]C [id number] [facility] 2021-08-13 12:13:50 Outpatient Aguilar, Na [facility]C [facility] [id number] [facility] 2021-08-13 12:10:18 Outpatient Aguilar, Na [facility] [id number] [facility] 2021-08-13 12:07:30 Outpatient Aguilar, Na [facility]C [facility] [id number] [facility] 2021-08-13 12:04:58 Outpatient Aguilar, Na [facility]C ST[facility] [id number] [facility] 2021-08-13 11:37:36 Outpatient Aguilar, Na [facility]C [facility] [id number] [facility] 2021-08-13 11:35:53 Outpatient Aguilar, Na [facility] [id number] [facility] 2021-08-13 11:18:10 Outpatient Aguilar, Na [facility]C [facility] [id number] [facility] 2021-08-13 11:06:46 Outpatient Aguilar, Na [facility]C ST[facility] [id number] [facility] 2021-08-13 11:06:07 Outpatient Aguilar, Na [facility] [id number] [facility] 2021-08-13 11:03:47 Outpatient Angeline Aguilar [facility]C ST[facility] [id number] [facility] 2024-09-27 00:00:00 2024-09-27 00:00:00 (TEL) STLMLC ST[facility] [id number] [facility] 2024-08-22 00:00:00 2024-08-22 00:00:00 OFFICE VISIT ESTAB PT LEVEL 4 [facility] ST[facility]C [id number] [facility] 2024-05-10 00:00:00 2024-05-10 00:00:00 OFFICE VISIT ESTAB PT LEVEL 4 [facility] [id number] [facility] 2024-03-23 00:00:00 2024-03-23 00:00:00 (TEL) STLMLC ST[facility]C [id number] [facility] 2024-01-13 00:00:00 2024-01-13 00:00:00 PREV VISIT EST AGE 40-64 STLMLC STLMLC [id number] [facility] 2023-09-13 00:00:00 2023-09-13 00:00:00 OFFICE VISIT ESTAB PT LEVEL 4 [facility]C STL[facility]C [id number] [facility] 2023-05-19 00:00:00 2023-05-19 00:00:00 (TEL) STLMLC STL[facility]C [id number] [facility] 2023-05-16 00:00:00 2023-05-16 00:00:00 Outpatient GC_GCBZW_[place]_S [facility] [id number] [facility] 2023-05-13 00:00:00 2023-05-13 00:00:00 PREV VISIT EST AGE 40-64 STLMLC STLMLC [id number] [facility] 2023-05-07 00:00:00 2023-05-07 00:00:00 (TEL) STLMLC STLMLC [id number] [facility] 2023-04-09 00:00:00 2023-04-09 00:00:00 (TEL) STLMLC STL[facility]C [id number] [facility] 2023-04-08 00:00:00 2023-04-08 00:00:00 (TEL) STLMLC ST[facility]C [id number] [facility] 2023-03-18 00:00:00 2023-03-18 00:00:00 (TEL) STLMLC STL[facility]C [id number] [facility] 2023-03-11 00:00:00 2023-03-11 00:00:00 (TEL) STLMLC ST[facility]C [id number] [facility] 2023-03-11 00:00:00 2023-03-11 00:00:00 OFFICE VISIT NEW PT LEVEL 3 [facility] ST[facility]C [id number] [facility] 2023-02-17 00:00:00 2023-02-17 00:00:00 (TEL) STLMLC STL[facility]C [id number] [facility] 2023-01-11 00:00:00 2023-01-11 00:00:00 OFFICE VISIT ESTAB PT LEVEL 4 [facility]C STL[facility]C [id number] [facility] 2022-12-01 00:00:00 2022-12-01 00:00:00 (TEL) STLMLC STL[facility]C [id number] [facility] 2022-06-22 00:00:00 2022-06-22 00:00:00 OFFICE VISIT ESTAB PT LEVEL 4 [facility] ST[facility]C [id number] [facility] 2022-06-03 00:00:00 2022-06-03 00:00:00 NO CHARGE STLMLC STL[facility]C [id number] [facility] 2022-06-02 00:00:00 2022-06-02 00:00:00 OFFICE VISIT EST PT LEVEL 3 [facility] ST[facility]C [id number] [facility] 2022-06-02 00:00:00 2022-06-02 00:00:00 (TEL) STLMLC STLMLC [id number] [facility] 2022-06-01 00:00:00 2022-06-01 00:00:00 (TEL) STLMLC STLMLC [id number] [facility] 2022-05-12 00:00:00 2022-05-12 00:00:00 ([place]) Nurse Visit [facility]LMLC STL[facility]C [id number] [facility] 2022-05-11 00:00:00 2022-05-11 00:00:00 (TEL) STLMLC STL[facility]C [id number] [facility] 2022-05-11 00:00:00 2022-05-11 00:00:00 OFFICE VISIT EST PT LEVEL 3 [facility]C ST[facility]C [id number] [facility] 2022-03-11 00:00:00 2022-03-11 00:00:00 OFFICE VISIT ESTAB PT LEVEL 4 [facility] ST[facility]C [id number] [facility] 2021-11-10 00:00:00 2021-11-10 00:00:00 PREV VISIT EST AGE 40-64 STLMLC STLMLC [id number] [facility] 2021-08-05 00:00:00 2021-08-05 00:00:00 OFFICE VISIT ESTAB PT LEVEL 4 [facility]C STL[facility]C [id number] [facility] 2021-06-03 00:00:00 2021-06-03 00:00:00 OFFICE VISIT EST PT LEVEL 3 [facility] ST[facility]C [id number] [facility] 2021-06-02 00:00:00 2021-06-02 00:00:00 (TEL) STLMLC STL[facility]C [id number] [facility] 2021-05-06 00:00:00 2021-05-06 00:00:00 OFFICE VISIT ESTAB PT LEVEL 4 [facility]C STL[facility]C [id number] [facility] 2021-03-11 00:00:00 2021-03-11 00:00:00 (TEL) STL[facility]C [facility] [id number] [facility] 2021-02-04 00:00:00 2021-02-04 00:00:00 Outpatient [facility] [id number] [facility] 2020-10-09 00:00:00 2020-10-09 00:00:00 Outpatient [facility] [id number] [facility] 2020-07-26 00:00:00 2020-07-26 00:00:00 Outpatient [facility] [id number] [facility] 2020-07-03 00:00:00 2020-07-03 00:00:00 Outpatient [facility]C [facility] [id number] [facility] 2020-06-24 00:00:00 2020-06-24 00:00:00 Outpatient [facility] [id number] [facility] 2020-06-04 00:00:00 2020-06-04 00:00:00 Outpatient [facility] [id number] [facility] 2020-04-03 10:35:00 2020-04-03 10:35:[address] [facility] [id number] [facility] 2020-03-04 14:40:00 2020-03-04 14:40:[address] [facility] [id number] [facility] 2019-12-26 10:20:00 2019-12-26 10:20:[address] [facility] [facility] [id number] [facility] 2019-11-27 08:40:00 2019-11-27 08:40:[address] [facility] [id number] [facility] 2019-08-28 14:20:00 2019-08-28 14:20:[address] [facility] [facility] [id number] [facility] 2019-08-15 13:20:00 2019-08-15 13:20:[address] [facility] [facility] [id number] [facility] 2019-04-12 09:00:00 2019-04-12 09:00:[address] [facility] [facility] [id number] [facility] 2019-03-21 16:23:00 2019-03-21 16:23:[address] [facility] [facility] [id number] [facility] 2019-01-03 10:00:00 2019-01-03 10:00:[address] [facility] [id number] [facility] 2018-12-19 10:00:00 2018-12-19 10:00:[address] [facility] [id number] [facility] 2018-09-12 16:54:00 2018-09-12 16:54:[address] [facility] [id number] [facility] 2018-08-15 15:45:00 2018-08-15 15:45:[address] [facility] [id number] [facility] 2018-04-19 16:20:00 2018-04-19 16:20:[address] [facility] [facility] [id number] [facility] 2018-04-01 08:30:00 2018-04-01 08:30:[address] [facility] [id number] [facility] 2017-10-05 10:15:00 2017-10-05 10:15:[address] [facility] [id number] [facility] Results Test Description Test Time Test Comments Results Result Co mments Source COMPREHENSIVE METABOLIC [id number] 00:00:00* Test Item Value Reference Range Interpretation Comme nts NUCLEATED RBCS (test code = 04925-3) 0.0 /100 WBC'S See_Comment [Automated message] The system which generated this result transmitted reference range: 0.0 /100 WBC'S. The reference range was not used to interpret this result as normal/abnormal. ABSOLUTE EOSINOPHILS (test code = 73006-4) 0.22 K/UL See_Comment [Automated message] The system which generated this result transmitted reference range: 0.00-0.50 K/UL. The reference range was not used to interpret this result as normal/abnormal. ABSOLUTE LYMPHOCYTES (test code = 43351-2) 1.97 K/UL See_Comment [Automated message] The system which generated this result transmitted reference range: 1.00-4.00 K/UL. The reference range was not used to interpret this result as normal/abnormal. ABSOLUTE MONOCYTES (test code = 59904-8) 0.56 K/UL See_Comment [Automated message] The system which generated this result transmitted reference range: 0.20-1.00 K/UL. The reference range was not used to interpret this result as normal/abnormal. ABSOLUTE NEUTROPHILS (test code = 34173-2) 5.71 K/UL See_Comment [Automated message] The system which generated this result transmitted reference range: 1.50-7.50 K/UL. The reference range was not used to interpret this result as normal/abnormal. BASOPHILS (test code = 68878-7) 0.7 % EOSINOPHILS (test code = 45252-7) 2.6 % HEMATOCRIT (test code = 34463-5) 40.3 % See_Comment [Automated message] The system [...] result as normal/abnormal. LYMPHOCYTES (test code = 61784-7) 23.0 % MCH (test code = 16530-7) 30.2 PG See_Comment [Automated message] The system which generated this result transmitted reference range: 25.0-33.0 PG. The reference range was not used to interpret this result as normal/abnormal. MCHC (test code = 22010-8) 33.0 G/DL See_Comment [Automated message] The system which generated this result transmitted reference range: 31.0-36.0 G/DL. The reference range was not used to interpret this result as normal/abnormal. MCV (test code = 39754-1) 91.4 fL See_Comment [Automated message] The system which generated this result transmitted reference range: 80.0-99.0 fL. The reference range was not used to interpret this result as normal/abnormal. MONOCYTES (test code = 59810-5) 6.5 % NEUTROPHILS (test code = 13288-6) 66.7 % PLATELET COUNT (test code = 78567-3) 262 K/UL See_Comment [Automated message] The system which generated this result transmitted reference range: 130-400 K/UL. The reference range was not used to interpret this result as normal/abnormal. RBC (test code = 06841-4) 4.41 M/UL See_Comment [Automated message] The system which generated this result transmitted reference range: 3.80-5.40 M/UL. The reference range was not used to interpret this result as normal/abnormal. RDW (test code = 50921-1) 11.7 % See_Comment [Automated message] The system which generated this result transmitted reference range: 11.5-15.0 %. The reference range was not used to interpret this result as normal/abnormal. WBC (test code = 97915-9) 8.6 K/UL See_Comment [Automated message] The system [...] REFLEX TO FREE T4 (test code = 49539-0) 2.590 UIU/ML See_Comment [Automated message] The system which generated this result transmitted reference range: 0.400-4.100 UIU/ML. The reference range was not used to interpret this result as normal/abnormal. APPEARANCE (test code = 5767-9) CLOUDY CLEAR A BACTERIA (test code = 57871-9) NONE SEEN NONE SEEN BILIRUBIN (test code = 5770-3) NEGATIVE NEGATIVE CASTS, HYALINE (test code = 49071-0) NONE SEEN NONE-TRACE COLOR (test code = 5778-6) DARK YELLOW YELLOW-STRAW A EPITHELIAL CELLS (test code = 68226-0) 0-5 /HPF See_Comment [Automated message] The system which generated this result transmitted reference range: 0-10 /HPF. The reference range was not used to interpret this result as normal/abnormal. GLUCOSE (test code = 5792-7) NEGATIVE NEGATIVE KETONES (test code = 5797-6) TRACE NEGATIVE A LEUKOCYTE ESTERASE (test code = 5799-2) NEGATIVE NEGATIVE NITRITE (test code = 5802-4) NEGATIVE NEGATIVE OCCULT BLOOD (test code = 12267-4) NEGATIVE NEGATIVE pH (test code = 5803-2) 5.5 5.0-9.0 PROTEIN (test code = 24235-5) 1+ NEGATIVE A RED BLOOD CELLS (test code = 89526-7) 0-2 /HPF See_Comment [Automated message] The system which generated this result transmitted reference range: 0-2 /HPF. The reference range was not used to interpret this result as normal/abnormal. SPECIFIC GRAVITY (test code = 5811-5) 1.024 1.005-1.035 UROBILINOGEN (test code = 49600-0) 1.0 MG/DL See_Comment [Automated message] The system which generated this result transmitted reference range: <=2.0 MG/DL. The reference range was not used to interpret this result as normal/abnormal. WHITE BLOOD CELLS (test code = 34245-5) 0-5 /HPF See_Comment [Automated message] The system which generated this result transmitted reference range: 0-5 /HPF. The reference range was not used to interpret this result as normal/abnormal. CALC LDL CHOL (test code = 78656-7) 81 MG/DL See_Comment [Automated message] The system [...] normal/abnormal. RISK RATIO LDL/HDL (test code = 74434-2) 2.03 RATIO See_Comment [Automated message] The system [...] result as normal/abnormal. CALCIUM (test code = 35328-3) 9.3 MG/DL See_Comment [Automated message] The system [...] as normal/abnormal. CALC GLOBULIN (test code = 58472-8) 3.0 G/DL See_Comment [Automated message] The system [...] normal/abnormal. eGFR (2020 CKD-EPI) (test code = 20641-5) 67 ML/MIN/1.73 See_Comment [Automated message] The system [...] to interpret this result as normal/abnormal. HEMOGLOBIN [id number] 00:00:00* Test Item Value Reference Range Interpretation Comme [facility] HEMOGLOBIN A1c (test code = 4548-4) 5.8 % See_Comment H [Automated messa ge] The system which generated this result transmitted reference range: 4.2-5.6 %. The reference range was not used to interpret this result as normal/abnormal. CBC W/AUTO [id number] 00:00:00* Test Item Value Reference Range Interpretation Comme nts NUCLEATED RBCS (test code = 42342-6) 0.0 /100 WBC'S See_Comment [Automated messa ge] The system which generated this result transmitted reference range: 0.0 /100 WBC'S. The reference range was not used to interpret this result as normal/abnormal. ABSOLUTE EOSINOPHILS (test code = 60088-2) 0.13 K/UL See_Comment [Automated messa ge] The system which generated this result transmitted reference range: 0.00-0.50 K/UL. The reference range was not used to interpret this result as normal/abnormal. ABSOLUTE LYMPHOCYTES (test code = 00289-4) 1.82 K/UL See_Comment [Automated messa ge] The system which generated this result transmitted reference range: 1.00-4.00 K/UL. The reference range was not used to interpret this result as normal/abnormal. ABSOLUTE MONOCYTES (test code = 06187-8) 0.46 K/UL See_Comment [Automated messa ge] The system which generated this result transmitted reference range: 0.20-1.00 K/UL. The reference range was not used to interpret this result as normal/abnormal. ABSOLUTE NEUTROPHILS (test code = 72996-9) 5.25 K/UL See_Comment [Automated messa ge] The system which generated this result transmitted reference range: 1.50-7.50 K/UL. The reference range was not used to interpret this result as normal/abnormal. BASOPHILS (test code = 40711-1) 0.8 % EOSINOPHILS (test code = 67429-1) 1.7 % HEMATOCRIT (test code = 26246-6) 42.9 % See_Comment [Automated messa ge] The [...] result as normal/abnormal. LYMPHOCYTES (test code = 23643-3) 23.5 % MCH (test code = 93448-9) 30.8 PG See_Comment [Automated messa ge] The system which generated this result transmitted reference range: 25.0-33.0 PG. The reference range was not used to interpret this result as normal/abnormal. MCHC (test code = 72522-0) 33.3 G/DL See_Comment [Automated messa ge] The system which generated this result transmitted reference range: 31.0-36.0 G/DL. The reference range was not used to interpret this result as normal/abnormal. MCV (test code = 87003-1) 92.3 fL See_Comment [Automated messa ge] The system which generated this result transmitted reference range: 80.0-99.0 fL. The reference range was not used to interpret this result as normal/abnormal. MONOCYTES (test code = 89179-5) 5.9 % NEUTROPHILS (test code = 11208-1) 67.8 % PLATELET COUNT (test code = 19029-2) 253 K/UL See_Comment [Automated messa ge] The system which generated this result transmitted reference range: 130-400 K/UL. The reference range was not used to interpret this result as normal/abnormal. RBC (test code = 60689-6) 4.65 M/UL See_Comment [Automated messa ge] The system which generated this result transmitted reference range: 3.80-5.40 M/UL. The reference range was not used to interpret this result as normal/abnormal. RDW (test code = 14779-4) 12.1 % See_Comment [Automated messa ge] The system which generated this result transmitted reference range: 11.5-15.0 %. The reference range was not used to interpret this result as normal/abnormal. WBC (test code = 43926-8) 7.7 K/UL See_Comment [Automated messa ge] The [...]
[2024-11-14] MEDS ORDERED: HYDROCODONE/APAP 5/325 MG TAB ONE (13:12)
[2024-11-14] MEDS ORDERED: DIAZEPAM 5 MG TABLET ONE (13:12)
--- NOTE | 2024-11-14 14:48 | EDPHYS ---
Physician Documentation [facility] Name: Ricky Nash Age: 64 yrs Sex: Female : 1960 Arrival Date: 11/14/2024 Time: 12:45 Bed 12 Private MD: ED Physician Benigno Zuñiga HPI: 11/14 14:48 This 64 yrs old Black Female presents to ER via Ambulatory with complaints of Neck ms3 Pain, <24hrs Old. 14:48 64-year-old female with past medical history of depression, hyperlipidemia, ms3 hypertension presents to the emergency department for left shoulder muscle spasm. Patient states this is occurred multiple times throughout the day. Patient states the discomfort is a 9/10. Patient denies alleviating or inciting factors. Patient has not taken medication for her symptoms.. Historical: - Allergies: 13:00 NKA; iw - PMHx: 13:00 Depression; Hyperlipidemia; Hypertension; iw - PSHx: 13:00 Total abdominal hysterectomy; iw - Infectious Disease History:: Denies. ROS: 14:48 Constitutional: Negative for fever, and chills. Cardiovascular: Negative for chest ms3 pain, and palpitations. Respiratory: Negative for shortness of breath, cough, wheezing, and pleuritic chest pain, Abdomen/GI: Negative for abdominal pain, nausea, vomiting, diarrhea, and constipation, 14:48 MS/extremity: Positive for Left shoulder spasm, Exam: 14:48 Constitutional: This is a well developed, well nourished patient who is awake, alert, ms3 and in no acute distress. Cardiovascular: Regular rate and rhythm with a normal S1 and S2. No gallops, murmurs, or rubs. Normal PMI, no JVD. No pulse deficits. Respiratory: Lungs have equal breath sounds bilaterally, clear to auscultation and percussion. No rales, rhonchi or wheezes noted. No increased work of breathing, no retractions or nasal flaring. Abdomen/GI: Soft, non-tender, with normal bowel sounds. No distension or tympany. No guarding or rebound. No evidence of tenderness throughout. Skin: Warm, dry with normal turgor. Normal color with no rashes, no lesions, and no evidence of cellulitis. 14:48 Musculoskeletal/extremity: Extremities: noted in the Left trapezius muscle: pain, tenderness, Vital Signs: 12:58 BP 144 / 81; Pulse 85; Resp 16; Pulse Ox 95% on R/A; Weight 122.47 kg; Height 5 ft. 9 iw in. ; Pain 9/10; 12:58 Body Mass Index 39.87 (122.47 kg, 175.26 cm) iw 12:58 Pain Scale: Adult iw MDM: 13:08 Medical Screening Exam initiated ms3 14:48 Differential diagnosis: Muscle spasm versus cervical radiculopathy. Data reviewed: ms3 vital signs, nurses notes, and as a result, I will discharge patient. I considered the following discharge prescriptions or medication management in the emergency department Medications were administered in the Emergency Department. See MAR. Counseling: I had a detailed discussion with the patient and/or guardian regarding the historical points, exam findings, and any diagnostic results supporting the discharge/admit diagnosis, the need for outpatient follow up, to return to the emergency department if symptoms worsen or persist or if there are any questions or concerns that arise at home. Special discussion: I discussed with the patient/guardian in detail that at this point there is no indication for admission to the hospital. It is understood, however, that if the symptoms persist or worsen the patient needs to return immediately for re-evaluation. ED course: On reevaluation patient symptoms improved, patient is alert and oriented x 4, no apparent distress, nontoxic-appearing, left arm neurovascularly intact. Patient to follow-up with primary care physician 2 to 3 days. Patient understands agrees with plan. All questions were answered. Return precautions discussed include worsening symptoms, or any other concerns.. Administered Medications: 13:20 Drug: HYDROcodone-acetaminophen PO 5 mg-325 mg 1 tabs PO once Route: PO; iw 13:20 Drug: Diazepam PO 5 mg PO once Route: PO; iw Disposition Summary: 11/14/24 14:48 Discharge Ordered Notes: Location: Home ms3 Condition: Stable ms3 Diagnosis - Muscle spasm ms3 Followup: ms3 - With: Private Physician - When: 2 - 3 days - Reason: Recheck today's complaints Discharge Instructions: - Discharge Summary Sheet ms3 - Muscle Cramps and Spasms ms3 Forms: - Work release form iw - Medication Reconciliation Form ms3 - Antibiotic Education ms3 - Prescription Opioid Use ms3 - Patient Portal Instructions ms3 - Leadership Thank You Letter ms3 Prescriptions: - Cyclobenzaprine 5 mg Oral Tablet - take 1 tablet ORAL route 3 times per day As needed; 15 tablet; Refills: 0, ms3 Product Selection Permitted Signatures: Yolis Clay RN RN iw Benigno Zuñiga DO DO ms3
--- NOTE | 2024-11-14 14:48 | ER ---
Nurse's Notes [facility] Name: Ricky Nash Age: 64 yrs Sex: Female : 1960 Arrival Date: 11/14/2024 Time: 12:45 Bed 12 Private MD: Diagnosis: Muscle spasm Presentation: 11/14 12:58 Chief complaint: Patient states: reached over to turn off alarm this morning and felt a iw pain in left side of neck, feels like spasms. Coronavirus screen: At this time, the client does not indicate any symptoms associated with coronavirus-19. Ebola Screen: No symptoms or risks identified at this time. Initial Sepsis Screen: Does the patient meet any 2 criteria? No. Patient's initial sepsis screen is negative. Does the patient have a suspected source of infection? No. Patient's initial sepsis screen is negative. Risk Assessment: Do you want to hurt yourself or someone else? Patient reports no desire to harm self or others. Onset of symptoms was November 14, 2024. 12:58 Method Of Arrival: Ambulatory iw 12:58 Acuity: MANOJ 4 iw Historical: - Allergies: 13:00 NKA; iw - PMHx: 13:00 Depression; Hyperlipidemia; Hypertension; iw - PSHx: 13:00 Total abdominal hysterectomy; iw - Infectious Disease History:: Denies. Vital Signs: 12:58 BP 144 / 81; Pulse 85; Resp 16; Pulse Ox 95% on R/A; Weight 122.47 kg; Height 5 ft. 9 iw in. ; Pain 9/10; 12:58 Body Mass Index 39.87 (122.47 kg, 175.26 cm) iw 12:58 Pain Scale: Adult iw ED Course: 12:55 Patient arrived in ED. iw 12:59 Benigno Zuñiga DO is Attending Physician. ms3 13:00 Triage completed. iw 13:00 Arm band placed on. iw 13:11 Yolis Clay RN is Primary Nurse. iw Administered Medications: 13:20 Drug: HYDROcodone-acetaminophen PO 5 mg-325 mg 1 tabs PO once Route: PO; iw 13:20 Drug: Diazepam PO 5 mg PO once Route: PO; iw Outcome: 14:48 Discharge ordered by MD. ms3 15:19 Patient left the ED. iw Signatures: Obed, Yolis, RN RN iw Zuñiga, Benigno, DO DO ms3
[2024-11-15 05:45] VITALS: BP 144/81; O2SAT 95
== END 2024-11-14 15:19 | disposition home or self-care (01) ==
LOC: ER 12:45
DX: M62.838 Other muscle spasm (principal)